=== PATIENT | female | born 1960 | race Caucasian/White ===

== ENCOUNTER 2018-04-14 11:48 | Inpatient (IN) | payer OTHER ==
[2018-04-14] MEDS ORDERED: Morphine 10 MG/ML Syringe IM ONE (12:02)
--- NOTE | 2018-04-14 12:09 | EDM.PDOC ---
ED HPI GENERAL MEDICAL PROBLEM - General Stated Complaint: LT LEG PAIN AND CONTUSION Time Seen by Provider: 04/14/18 12:05 Source of Information: Reports: Patient, Family, Old Records - History of Present Illness INITIAL COMMENTS - FREE TEXT/NARRATIVE: When he complains of left leg pain. She had a fall from chair 3 weeks ago and sustained a contusion of the left leg. An x-ray done at the walk-in clinic on the was negative for any acute fracture(see xray reports). Last 2 days the wound opened up,noted to be red ,painful and swollen. Pain is severe,worse with any weight bearing and there is some drainage, but denies any systemic symptoms. She has a history of hypothyroidism but is stable, and rheumatoid arthritis on chronic use of prednisone. 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 ED EXAM, SKIN/RASH Exam: See Below Text/Narrative:: Physical exam shows a wound noted on the anterior compartment of left leg. About 10 cm long,linealry,and there is an eschar formation noted. Wound drainage is noted,serosanguineous, with marked edema, redness and exquisite tenderness to palpation.DOrsales pedis pulses is present,strong.Patient appears uncomfortable. Exam Limited By: No Limitations General Appearance: Alert Course - Vital Signs Text/Narrative:: I consulted Dr Rosas Last Recorded V/S: Last Vital Signs Temp 97.4 F 04/14/18 12:02 Pulse 74 04/14/18 12:02 Resp 20 04/14/18 12:02 BP 142/70 H 04/14/18 12:02 Pulse Ox 100 04/14/18 12:02 - Orders/Labs/Meds Orders: Active Orders 24 hr Category Date Time Status CULTURE BLOOD [BC] Urgent Lab 04/14/18 12:20 Received CULTURE BLOOD [BC] Urgent Lab 04/14/18 12:25 Received CULTURE ROUTINE + SMEAR [RM] Stat Lab 04/14/18 12:20 Ordered Blood Culture x2 Reflex Set [OM.PC] Urgent Oth 04/14/18 12:02 Ordered Labs: Laboratory Tests 04/14/18 04/14/18 04/14/18 Range/Units 12:20 12:20 12:20 WBC 6.9 (4.5-12.0) X10-3/uL RBC 4.85 (3.23-5.20) x10(6)uL Hgb 13.8 (11.5-15.5) g/dL Hct 41.0 (30.0-51.3) % MCV 84.5 (80-96) fL MCH 28.3 (27.7-33.6) pg MCHC 33.5 (32.2-35.4) g/dL RDW 14.7 (11.5-15.5) % Plt Count 225 (125-369) X10(3)uL MPV 8.0 (7.4-10.4) fL Neut % (Auto) 73.8 (46-82) % Lymph % (Auto) 19.0 (13-37) % [place] % (Auto) 6.0 (4-12) % Eos % (Auto) 1 (1.0-5.0) % Baso % (Auto) 0 (0-2) % Neut # (Auto) 5.1 (1.6-8.3) # Lymph # (Auto) 1.3 (0.6-5.0) # [place] # (Auto) 0.4 (0.0-1.3) # Eos # (Auto) 0.1 (0.0-0.8) # Baso # (Auto) 0.0 (0.0-0.2) # ESR 11 (0-20) mm/hr Sodium 142 (135-145) mmol/L Potassium 3.3 L (3.5-5.3) mmol/L Chloride 105 (100-110) mmol/L Carbon Dioxide 30 (21-32) mmol/L BUN 12 (7-18) mg/dL Creatinine 0.8 (0.55-1.02) mg/dL Est Cr Clr Drug Dosing 63.41 mL/min Estimated GFR (MDRD) > 60 (>60) BUN/Creatinine Ratio 15.0 (9-20) Glucose 105 (80-116) mg/dL Calcium 8.8 (8.6-10.2) mg/dL Lactate Dehydrogenase (81-234) U/L Creatine Kinase (60-160) IU/L C-Reactive Protein (0.5-0.9) mg/dL 18 04/14/18 Range/Units 12:20 12:20 WBC (4.5-12.0) X10-3/uL RBC (3.23-5.20) x10(6)uL Hgb (11.5-15.5) g/dL Hct (30.0-51.3) % MCV (80-96) fL MCH (27.7-33.6) pg MCHC (32.2-35.4) g/dL RDW (11.5-15.5) % Plt Count (125-369) X10(3)uL MPV (7.4-10.4) fL Neut % (Auto) (46-82) % Lymph % (Auto) (13-37) % [place] % (Auto) (4-12) % Eos % (Auto) (1.0-5.0) % Baso % (Auto) (0-2) % Neut # (Auto) (1.6-8.3) # Lymph # (Auto) (0.6-5.0) # [place] # (Auto) (0.0-1.3) # Eos # (Auto) (0.0-0.8) # Baso # (Auto) (0.0-0.2) # ESR (0-20) mm/hr Sodium (135-145) mmol/L Potassium (3.5-5.3) mmol/L Chloride (100-110) mmol/L Carbon Dioxide (21-32) mmol/L BUN (7-18) mg/dL Creatinine (0.55-1.02) mg/dL Est Cr Clr Drug Dosing mL/min Estimated GFR (MDRD) (>60) BUN/Creatinine Ratio (9-20) Glucose (80-116) mg/dL Calcium (8.6-10.2) mg/dL Lactate Dehydrogenase 158 (81-234) U/L Creatine Kinase 38 L (60-160) IU/L C-Reactive Protein 1.7 H (0.5-0.9) mg/dL Meds: Medications Discontinued Medications Generic Name Dose Route Start Last Admin Trade Name Liliane PRN Reason Stop Dose Admin Morphine Sulfate 10 mg 04/14/18 12:02 04/14/18 12:15 Morphine IM 04/14/18 12:03 10 mg ONETIME ONE Administration Departure - Departure Time of Disposition: 13:29 Disposition: Admitted As Inpatient 66 Clinical Impression: Cellulitis - Discharge Information Referrals: Yisel Hurtado NP [Primary Care Provider] - - Problem List & Annotations (1) Cellulitis SNOMED Code(s): 882576767 Code(s): L03.90 - CELLULITIS, UNSPECIFIED Status: Acute Current Visit: Yes Qualifiers: Site of cellulitis: extremity - Problem List Review Problem List Initiated/Reviewed/Updated: Yes - My Orders Last 24 Hours: My Active Orders 04/14/18 12:02 Blood Culture x2 Reflex Set [OM.PC] Urgent 04/14/18 12:20 CULTURE BLOOD [BC] Urgent CULTURE ROUTINE + SMEAR [RM] Stat 04/14/18 12:25 CULTURE BLOOD [BC] Urgent - Assessment/Plan Last 24 Hours: My Active Orders 04/14/18 12:02 Blood Culture x2 Reflex Set [OM.PC] Urgent 04/14/18 12:20 CULTURE BLOOD [BC] Urgent CULTURE ROUTINE + SMEAR [RM] Stat 04/14/18 12:25 CULTURE BLOOD [BC] Urgent Plan: I handed over to Dr Briones,who came to see patient.The wound probably needs debridement,IV abx. R/o Osteomyelitis
--- NOTE | 2018-04-14 13:42 | PCM.HP ---
H&P History of Present Illness - General Date of Service: 04/14/18 Source of Information: Patient - History of Present Illness Initial Comments - Free Text/Narative: 58 yo wf who presents with a complaint of a necrotic wound on the left hampton. The pt apparently fell off some chairs several weeks ago, striking her hampton. She had a contusion that developed into a blister, then opened up on Saturday. Has some pain, erythema surrounding the wound. 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: Other OB/BYN History: [id number] Musculoskeletal History: Reports: Fibromyalgia, RA Neurological History: Reports: Migraines Psychiatric History: Reports: Anxiety, Depression Endocrine/Metabolic History: Reports: Hypothyroidism Hematologic History: Reports: Anemia - Infectious Disease History Infectious Disease History: Reports: Chicken Pox, Mumps - Past Surgical History HEENT Surgical History: Reports: Adenoidectomy, Oral Surgery, Tonsillectomy GI Surgical History: Reports: Appendectomy, Other (See Below) Other GI Surgeries/Procedures: exp lap Female Surgical History: Reports: Section Other Female Surgeries/Procedures: CS x 1 Neurological Surgical History: Reports: None Musculoskeletal Surgical History: Reports: Other (See Below) Other Musculoskeletal Surgeries/Procedures:: hammer toe & bunion surgery bilat feet Social & Family History - Family History Family Medical History: Noncontributory - Tobacco Use Smoking Status *Q: Never Smoker - Caffeine Use Caffeine Use: Reports: Tea - Recreational Drug Use Recreational Drug Use: No H&P Review of Systems - Review of Systems: Review Of Systems: See Below General: Reports: Night Sweats. Denies: Fever HEENT: Reports: No Symptoms Pulmonary: Reports: No Symptoms Cardiovascular: Reports: No Symptoms Gastrointestinal: Reports: No Symptoms Musculoskeletal: Reports: Joint Pain, Muscle Pain Skin: Reports: Erythema, Wound Exam - Exam Exam: See Below - Vital Signs Vital Signs: Last Vital Signs Temp 97.4 F 04/14/18 12:02 Pulse 74 04/14/18 12:02 Resp 20 04/14/18 12:02 BP 142/70 H 04/14/18 12:02 Pulse Ox 100 04/14/18 12:02 Weight: 53.524 kg - Exam General: Alert, Oriented HEENT: PERRLA, Conjunctiva Clear, EOMI, Mucosa Moist & [place] Neck: Supple, Trachea Midline Lungs: Clear to Auscultation, Normal Respiratory Effort Cardiovascular: Regular Rate, Regular Rhythm GI/Abdominal Exam: Normal Bowel Sounds Extremities: Other (left ant hampton, two wounds 5x3 cm, 1.5x1cm in a line ant hampton. there is erythema and tenderness, ) - Patient Data Lab Results Last 24 hrs: Laboratory Results - last 24 hr 04/14/18 04/14/18 04/14/18 Range/Units 12:20 12:20 12:20 WBC 6.9 (4.5-12.0) X10-3/uL RBC 4.85 (3.23-5.20) x10(6)uL Hgb 13.8 (11.5-15.5) g/dL Hct 41.0 (30.0-51.3) % MCV 84.5 (80-96) fL MCH 28.3 (27.7-33.6) pg MCHC 33.5 (32.2-35.4) g/dL RDW 14.7 (11.5-15.5) % Plt Count 225 (125-369) X10(3)uL MPV 8.0 (7.4-10.4) fL Neut % (Auto) 73.8 (46-82) % Lymph % (Auto) 19.0 (13-37) % [place] % (Auto) 6.0 (4-12) % Eos % (Auto) 1 (1.0-5.0) % Baso % (Auto) 0 (0-2) % Neut # (Auto) 5.1 (1.6-8.3) # Lymph # (Auto) 1.3 (0.6-5.0) # [place] # (Auto) 0.4 (0.0-1.3) # Eos # (Auto) 0.1 (0.0-0.8) # Baso # (Auto) 0.0 (0.0-0.2) # ESR 11 (0-20) mm/hr Sodium 142 (135-145) mmol/L Potassium 3.3 L (3.5-5.3) mmol/L Chloride 105 (100-110) mmol/L Carbon Dioxide 30 (21-32) mmol/L BUN 12 (7-18) mg/dL Creatinine 0.8 (0.55-1.02) mg/dL Est Cr Clr Drug Dosing 63.41 mL/min Estimated GFR (MDRD) > 60 (>60) BUN/Creatinine Ratio 15.0 (9-20) Glucose 105 (80-116) mg/dL Calcium 8.8 (8.6-10.2) mg/dL Lactate Dehydrogenase (81-234) U/L Creatine Kinase (60-160) IU/L C-Reactive Protein (0.5-0.9) mg/dL 04/14/18 04/14/18 Range/Units 12:20 12:20 WBC (4.5-12.0) X10-3/uL RBC (3.23-5.20) x10(6)uL Hgb (11.5-15.5) g/dL Hct (30.0-51.3) % MCV (80-96) fL MCH (27.7-33.6) pg MCHC (32.2-35.4) g/dL RDW (11.5-15.5) % Plt Count (125-369) X10(3)uL MPV (7.4-10.4) fL Neut % (Auto) (46-82) % Lymph % (Auto) (13-37) % [place] % (Auto) (4-12) % Eos % (Auto) (1.0-5.0) % Baso % (Auto) (0-2) % Neut # (Auto) (1.6-8.3) # Lymph # (Auto) (0.6-5.0) # [place] # (Auto) (0.0-1.3) # Eos # (Auto) (0.0-0.8) # Baso # (Auto) (0.0-0.2) # ESR (0-20) mm/hr Sodium (135-145) mmol/L Potassium (3.5-5.3) mmol/L Chloride (100-110) mmol/L Carbon Dioxide (21-32) mmol/L BUN (7-18) mg/dL Creatinine (0.55-1.02) mg/dL Est Cr Clr Drug Dosing mL/min Estimated GFR (MDRD) (>60) BUN/Creatinine Ratio (9-20) Glucose (80-116) mg/dL Calcium (8.6-10.2) mg/dL Lactate Dehydrogenase 158 (81-234) U/L Creatine Kinase 38 L (60-160) IU/L C-Reactive Protein 1.7 H (0.5-0.9) mg/dL Result Diagrams: 04/14/18 12:20 04/14/18 12:20 - Problem List (1) Wound of left lower extremity SNOMED Code(s): 032320987, 480865693 ICD Code: S81.802A - UNSPECIFIED OPEN WOUND, LEFT LOWER LEG, INITIAL ENCOUNTER Status: Acute Current Visit: Yes Problem List Initiated/Reviewed/Updated: Yes Orders Last 24hrs: Active Orders 24 hr Category Date Time Status CULTURE BLOOD [BC] Urgent Lab 04/14/18 12:20 Received CULTURE BLOOD [BC] Urgent Lab 04/14/18 12:25 Received CULTURE ROUTINE + SMEAR [RM] Stat Lab 04/14/18 12:20 Ordered Blood Culture x2 Reflex Set [OM.PC] Urgent Oth 04/14/18 12:02 Ordered Assessment/Plan Comment:: Pt will need to be admitted and undergo surgical debridement. Also plan IV antibiotics. Procedure and risks were explained to the pt to include bleeding, infection, need for further debridement.
[2018-04-14] MEDS: Lactated Ringers 1,000 ML IV SCH (14:37)
[2018-04-14] MEDS: Piperacillin/Tazobactam 3.375 GM in Sodium Chloride 0.9% 50 ML IV SCH ×2 (14:50→19:50)
[2018-04-14] MEDS: Morphine 2 MG/ML Syringe IVPUSH PRN ×2 (15:02→21:08)
[2018-04-14] MEDS ORDERED: Ketamine 500 mg/10 ML MDV IV ONE (16:40)
[2018-04-14] MEDS ORDERED: BUPIVACAINE HCL IJ ONE (16:40)
[2018-04-14] MEDS ORDERED: [UNRECOGNIZED DRUG - OTHER] IJ ONE (16:40)
[2018-04-14] MEDS ORDERED: Propofol 200 MG/20 ML SDV IV ONE (16:40)
[2018-04-14] MEDS ORDERED: Dexamethasone 4 MG/ML 5 ML MDV IVPUSH ONE (16:40)
[2018-04-14] MEDS ORDERED: Ondansetron 4 MG/2 ML SDV IVPUSH ONE (16:40)
[2018-04-14] MEDS ORDERED: Lidocaine 2% 100 MG/5 ML Syringe IVPUSH ONE (16:40)
[2018-04-14] MEDS ORDERED: HYDROmorphone 2 MG/ML SDV IV ONE (16:40)
[2018-04-14] MEDS ORDERED: Ondansetron 4 MG/2 ML SDV IVPUSH PRN (17:27)
--- NOTE | 2018-04-14 17:38 | PCM.OPNOTE ---
- General Post-Op/Procedure Note Date of Surgery/Procedure: 04/14/18 Operative Procedure(s): debridement left ant hampton Findings: necrotic fat. no exposed bone intact fascia wound after debridement 9x4 cm Pre Op Diagnosis: wound left ant hampton Post-Op Diagnosis: Same Anesthesia Technique: Spinal Primary Surgeon: Andrew Rosas Anesthesia Provider: Marissa Orozco Pathology: necrotic tissue EBL in mLs: 1 Complications: None Condition: Good Free Text/Narrative:: Intake & Output 04/14/18 04/14/18 04/14/18 06:59 14:59 22:59 Intake Total 0 Output Total 0 Balance 0 see dictation [id number]
[2018-04-14] MEDS: Ketorolac 30 MG/ML SDV IVPUSH SCH (17:52)
--- NOTE | 2018-04-14 18:20 | OR ---
DATE OF OPERATION: 04/14/2018 SURGEON: Andrew Rosas MD PROCEDURE PERFORMED: Surgical debridement of wound, left anterior hampton. PREOPERATIVE DIAGNOSIS: Wound, anterior hampton. POSTOPERATIVE DIAGNOSIS: Wound, anterior hampton. INDICATIONS FOR PROCEDURE: This is a 58-year-old white female who underwent a fall off a chair and struck her left hampton several weeks ago. In the subsequent time period, she has developed some necrosis of the skin. The wound finally opened over the weekend exposing necrotic fat and skin. The wound itself measured 3 x 5 at the largest component and then there was a separate wound approximately 1 cm below that and it measured 1 x 1.5 cm. She was offered and accepted surgical debridement. INTRAOPERATIVE FINDINGS: After the wound was debrided, we were left with a wound approximately 9 x 4 cm in size. DESCRIPTION OF PROCEDURE: After an excellent spinal anesthetic was administered, the patient was prepped and draped in the usual sterile manner. We started the case up by sharply dissecting away the skin and eschar that topped off the wound. This was passed off the field. Rongeur dissection using the back handle of an Adson's retractor was used to remove the fat back to a good viable tissue. The wound was then irrigated using a vacuum suction superintendent measurement. Yvonne were then placed circumferentially and using a vessel loop, we weaved the vessel loop in a shoelace fashion to get some approximation of the skin edges itself. The wound was then packed with a clean fluff and dressing was applied. Needle, sponge, and instrument counts were reported as correct. The patient was taken to Recovery in a good condition. /[id number] /NICOLASAL
[2018-04-14] MEDS: Acetaminophen/HYDROcodone 325-5 MG Tab PO PRN (20:10)
[2018-04-15] MEDS: Ketorolac 30 MG/ML SDV IVPUSH SCH ×4 (00:15→18:09)
[2018-04-15] MEDS: Piperacillin/Tazobactam 3.375 GM in Sodium Chloride 0.9% 50 ML IV SCH ×3 (02:17→15:09)
[2018-04-15] MEDS: Lactated Ringers 1,000 ML IV SCH (02:22)
--- NOTE | 2018-04-15 07:50 | PCM.SURGPN ---
- General Info Date of Service: 04/15/18 POD#: 1 Functional Status: Reports: Pain Controlled, Ambulating, Urinating. Denies: New Symptoms - Review of Systems General: Denies: No Symptoms Pulmonary: Reports: No Symptoms Cardiovascular: Reports: No Symptoms - Patient Data Vitals - Most Recent: Last Vital Signs Temp 97.6 F 04/15/18 01:00 Pulse 79 04/15/18 01:00 Resp 20 04/15/18 01:00 BP 111/53 L 04/15/18 01:00 Pulse Ox 95 04/15/18 01:00 Weight - Most Recent: 54.431 kg I&O - Last 24 Hours: Intake & Output 04/14/18 04/15/18 04/15/18 22:59 06:59 14:59 Intake Total 1071 Output Total 1200 Balance -129 Lab Results Last 24 Hrs: Laboratory Results - last 24 hr 04/14/18 04/14/18 04/14/18 Range/Units 12:20 12:20 12:20 WBC 6.9 (4.5-12.0) X10-3/uL RBC 4.85 (3.23-5.20) x10(6)uL Hgb 13.8 (11.5-15.5) g/dL Hct 41.0 (30.0-51.3) % MCV 84.5 (80-96) fL MCH 28.3 (27.7-33.6) pg MCHC 33.5 (32.2-35.4) g/dL RDW 14.7 (11.5-15.5) % Plt Count 225 (125-369) X10(3)uL MPV 8.0 (7.4-10.4) fL Neut % (Auto) 73.8 (46-82) % Lymph % (Auto) 19.0 (13-37) % [place] % (Auto) 6.0 (4-12) % Eos % (Auto) 1 (1.0-5.0) % Baso % (Auto) 0 (0-2) % Neut # (Auto) 5.1 (1.6-8.3) # Lymph # (Auto) 1.3 (0.6-5.0) # [place] # (Auto) 0.4 (0.0-1.3) # Eos # (Auto) 0.1 (0.0-0.8) # Baso # (Auto) 0.0 (0.0-0.2) # Add Manual Diff Neutrophils % (Manual) (46-82) % Band Neutrophils % (0-6) % Lymphocytes % (Manual) (13-37) % Monocytes % (Manual) (4-12) % ESR 11 (0-20) mm/hr Sodium 142 (135-145) mmol/L Potassium 3.3 L (3.5-5.3) mmol/L Chloride 105 (100-110) mmol/L Carbon Dioxide 30 (21-32) mmol/L BUN 12 (7-18) mg/dL Creatinine 0.8 (0.55-1.02) mg/dL Est Cr Clr Drug Dosing 63.41 mL/min Estimated GFR (MDRD) > 60 (>60) BUN/Creatinine Ratio 15.0 (9-20) Glucose 105 (80-116) mg/dL Calcium 8.8 (8.6-10.2) mg/dL Lactate Dehydrogenase (81-234) U/L Creatine Kinase (60-160) IU/L C-Reactive Protein (0.5-0.9) mg/dL 04/14/18 04/14/18 04/15/18 Range/Units 12:20 12:20 06:05 WBC 7.6 (4.5-12.0) X10-3/uL RBC 4.34 (3.23-5.20) x10(6)uL Hgb 12.4 (11.5-15.5) g/dL Hct 37.3 (30.0-51.3) % MCV 85.9 (80-96) fL MCH 28.5 (27.7-33.6) pg MCHC 33.2 (32.2-35.4) g/dL RDW 15.1 (11.5-15.5) % Plt Count 196 (125-369) X10(3)uL MPV 8.2 (7.4-10.4) fL Neut % (Auto) (46-82) % Lymph % (Auto) (13-37) % [place] % (Auto) (4-12) % Eos % (Auto) (1.0-5.0) % Baso % (Auto) (0-2) % Neut # (Auto) (1.6-8.3) # Lymph # (Auto) (0.6-5.0) # [place] # (Auto) (0.0-1.3) # Eos # (Auto) (0.0-0.8) # Baso # (Auto) (0.0-0.2) # Add Manual Diff Yes Neutrophils % (Manual) 79 (46-82) % Band Neutrophils % 4 (0-6) % Lymphocytes % (Manual) 13 (13-37) % Monocytes % (Manual) 4 (4-12) % ESR (0-20) mm/hr Sodium (135-145) mmol/L Potassium (3.5-5.3) mmol/L Chloride (100-110) mmol/L Carbon Dioxide (21-32) mmol/L BUN (7-18) mg/dL Creatinine (0.55-1.02) mg/dL Est Cr Clr Drug Dosing mL/min Estimated GFR (MDRD) (>60) BUN/Creatinine Ratio (9-20) Glucose (80-116) mg/dL Calcium (8.6-10.2) mg/dL Lactate Dehydrogenase 158 (81-234) U/L Creatine Kinase 38 L (60-160) IU/L C-Reactive Protein 1.7 H (0.5-0.9) mg/dL Pascual Results Last 24 Hrs: Microbiology 04/14/18 12:20 Gram Stain - Final Wound Routine Culture - Preliminary Gram Negative Rods Gram Positive Cocci Med Orders - Current: Current Medications Hydrocodone Bitart/Acetaminophen (Trimble 325-5 Mg) 1 tab PO Q4H PRN PRN Reason: Pain (mild 1-3) Last Admin: 04/14/18 20:10 Dose: 1 tab Piperacillin Sod/Tazobactam (Sod 3.375 gm/ Sodium Chloride) 50 mls @ 100 mls/ hr IV Q6H SOBEIDA Last Admin: 04/15/18 02:17 Dose: 100 mls/hr Ketorolac Tromethamine (Toradol) 30 mg IVPUSH Q6H SOBEIDA Stop: 04/19/18 18:01 Last Admin: 04/15/18 06:14 Dose: 30 mg Morphine Sulfate (Morphine) 1 mg IVPUSH Q1H PRN PRN Reason: Pain Last Admin: 09/03/18 21:08 Dose: 1 mg Non-Formulary Medication (Naltrexone Hcl Dihydrate [Naltrexone Hcl Dihydrate]) 4.5 gm MC BEDTIME SOBEIDA Non-Formulary Medication (Thyroid,Pork [Data Analysis Assistant Thyroid]) 45 mg PO DAILY SOBEIDA Ondansetron HCl (Zofran) 4 mg IVPUSH Q6H PRN PRN Reason: Nausea/Vomiting Last Admin: 04/14/18 21:08 Dose: 4 mg Prednisone (Prednisone) 5 mg PO BID SOBEIDA Discontinued Medications Lactated Ringer's (Ringers, Lactated) 1,000 mls @ 50 mls/hr IV ASDIRECTED SOBEIDA Last Admin: 04/15/18 02:22 Dose: 125 mls/hr Morphine Sulfate (Morphine) 10 mg IM ONETIME ONE Stop: 04/14/18 12:03 Last Admin: 04/14/18 12:15 Dose: 10 mg - Exam Wound/Incisions: No Drainage, Erythema Improving, Other (dressing change performed. wound is clean and dry ) Lungs: Clear to Auscultation, Normal Respiratory Effort Cardiovascular: Regular Rate, Regular Rhythm Extremities: Other (see above ) - Problem List & Annotations (1) Wound of left lower extremity SNOMED Code(s): 766447962, 133654293 Code(s): S81.802A - UNSPECIFIED OPEN WOUND, LEFT LOWER LEG, INITIAL ENCOUNTER Status: Acute Current Visit: Yes - Problem List Review Problem List Initiated/Reviewed/Updated: Yes - My Orders Last 24 Hours: Active Orders 24 hr Category Date Time Status Patient Status [ADT] Routine ADT 04/14/18 13:45 Active Gastrointestinal Tube Mgmt [RC] QSHIFT Care 04/14/18 17:27 Inactive Notify Provider Vital Signs [RC] PRN Care 04/14/18 17:27 Active RT Incentive Spirometry [RC] Q2HWA Care 04/14/18 17:27 Active Up ad Toshia [RC] ASDIRECTED Care 04/15/18 07:46 Ordered Vital Signs [RC] 00,14,08,12,16,20 Care 04/14/18 13:45 Active Regular Diet [DIET] Diet 04/14/18 Dinner Active CULTURE BLOOD [BC] Urgent Lab 04/14/18 12:20 Received CULTURE BLOOD [BC] Urgent Lab 04/14/18 12:25 Received CULTURE ROUTINE + SMEAR [RM] Routine Lab 04/14/18 17:00 Received CULTURE ROUTINE + SMEAR [RM] Stat Lab 04/14/18 12:20 Ordered Acetaminophen/HYDROcodone [Trimble 325-5 MG] Med 04/14/18 17:27 Active 1 tab PO Q4H PRN Ketorolac [Toradol] Med 04/14/18 18:00 Active 30 mg IVPUSH Q6H Morphine Med 04/14/18 13:49 Active 1 mg IVPUSH Q1H PRN Naltrexone HCl Dihydrate [Naltrexone HCl Dihydrate] Med 04/15/18 21:00 Ordered 4.5 gm MC BEDTIME Ondansetron [Zofran] Med 04/14/18 17:27 Active 4 mg IVPUSH Q6H PRN Piperacillin/Tazobactam [Zosyn] 3.375 gm Med 04/14/18 14:00 Active Sodium Chloride 0.9% [Normal Saline] 50 ml IV Q6H Thyroid,Pork [Data Analysis Assistant Thyroid] Med 04/15/18 09:00 Ordered 45 mg PO DAILY predniSONE Med 04/15/18 09:00 Ordered 5 mg PO BID Blood Culture x2 Reflex Set [OM.PC] Urgent Oth 04/14/18 12:02 Ordered Convert IV to Saline Lock [OM.PC] Routine Oth 04/15/18 07:46 Ordered Resuscitation Status Routine Resus Stat 04/14/18 13:45 Ordered Medication Orders Hydrocodone Bitart/Acetaminophen (Trimble 325-5 Mg) 1 tab PO Q4H PRN PRN Reason: Pain (mild 1-3) Last Admin: 04/14/18 20:10 Dose: 1 tab Piperacillin Sod/Tazobactam (Sod 3.375 gm/ Sodium Chloride) 50 mls @ 100 mls/ hr IV Q6H [facility] Last Admin: 04/15/18 02:17 Dose: 100 mls/hr Admin: 04/14/18 19:50 Dose: 100 mls/hr Admin: 04/14/18 14:50 Dose: 100 mls/hr Ketorolac Tromethamine (Toradol) 30 mg IVPUSH Q6H SOBEIDA Stop: 04/19/18 18:01 Last Admin: 04/15/18 06:14 Dose: 30 mg Admin: 04/15/18 00:15 Dose: 30 mg Admin: 04/14/18 17:52 Dose: 30 mg Morphine Sulfate (Morphine) 1 mg IVPUSH Q1H PRN PRN Reason: Pain Last Admin: 04/14/18 21:08 Dose: 1 mg Admin: 04/14/18 15:02 Dose: 1 mg Non-Formulary Medication (Naltrexone Hcl Dihydrate [Naltrexone Hcl Dihydrate]) 4.5 gm MC BEDTIME SOBEIDA Non-Formulary Medication (Thyroid,Pork [Data Analysis Assistant Thyroid]) 45 mg PO DAILY SOBEIDA Ondansetron HCl (Zofran) 4 mg IVPUSH Q6H PRN PRN Reason: Nausea/Vomiting Last Admin: 04/14/18 21:08 Dose: 4 mg Prednisone (Prednisone) 5 mg PO BID SOBEIDA - Assessment Assessment (Free Text/Narrative):: improvement of the wound. - Plan Plan (Free Text/Narrative):: continue antibiotics saline look if anticipate discharge later today.
[2018-04-15] MEDS: Acetaminophen/HYDROcodone 325-5 MG Tab PO PRN (08:21)
[2018-04-15] MEDS: predniSONE 5 MG Tab *PTOM PO SCH (08:51)
[2018-04-15] MEDS: NP THYROID 90 MG PO SCH (08:52)
[2018-04-15] MEDS ORDERED: NP THYROID 90 MG PO SCH (09:00)
[2018-04-15] MEDS: Sodium Chloride 0.9% 10 ML Syringe FLUSH PRN (18:09)
[2018-04-15] MEDS ORDERED: predniSONE 5 MG Tab PO SCH (20:00)
[2018-04-15] MEDS ORDERED: [UNRECOGNIZED DRUG - OTHER] MC SCH (21:00)
[2018-04-15] MEDS ORDERED: [UNRECOGNIZED DRUG - OTHER] PO SCH (22:00)
[2018-04-15] MEDS ORDERED: NALTREXONE 4.5 MG PO SCH (22:00)
[2018-04-16] MEDS: Ketorolac 30 MG/ML SDV IVPUSH SCH ×2 (00:29→06:21)
[2018-04-16] MEDS: Sodium Chloride 0.9% 10 ML Syringe FLUSH PRN ×2 (00:34→06:23)
[2018-04-16] MEDS: NP THYROID 90 MG PO SCH (08:58)
[2018-04-16] MEDS: predniSONE 5 MG Tab *PTOM PO SCH (08:59)
--- NOTE | 2018-04-16 10:14 | PCM.DCSUM1 ---
Discharge Summary - Hospital Course Free Text/Narrative:: Pt admitted underwent surgical debridment Wound has been clean and dry. granulation tissue has already stated to form. cultures Klebseilla and Staph aureus. ready for discharge on day 2 - Discharge Data Discharge Date: 04/16/18 Discharge Disposition: Home, Self-Care 01 Condition: Good - Discharge Diagnosis/Problem(s) (1) Wound of left lower extremity SNOMED Code(s): 241241233, [id number] ICD Code: S81.802A - UNSPECIFIED OPEN WOUND, LEFT LOWER LEG, INITIAL ENCOUNTER Status: Acute Current Visit: Yes Qualifiers: Encounter type: initial encounter Qualified Code(s): S81.802A - Unspecified open wound, left lower leg, initial encounter - Patient Summary/Data Operative Procedure(s) Performed: debridement left ant hampton Complications: none - Patient Instructions Diet: Usual Diet as Tolerated, No Alcoholic Beverages Activity: No Strenuous Activities, Rest and Relax Today Driving: Do Not Drive Showering/Bathing: May Shower Wound/Incision Care: Do NOT Change Dressing Notify Provider of: Fever, Swelling and Redness, Drainage - Discharge Plan *PRESCRIPTION DRUG MONITORING PROGRAM REVIEWED*: No *COPY OF PRESCRIPTION DRUG MONITORING REPORT IN PATIENT KAMINI: No Prescriptions/Med Rec: Celecoxib [CeleBREX] 100 mg PO BID PRN #10 cap PRN Reason: Pain Home Medications: Home Meds Naltrexone HCl Dihydrate 4.5 mg PO BEDTIME 04/14/18 [History] Thyroid,Pork [Lorry Weigher Thyroid] 67.5 mg PO DAILY 04/14/18 [History] predniSONE [Prednisone] 2.5 mg PO DAILY 04/15/18 [History] predniSONE [Prednisone] 5 mg PO DAILY@199904/15/18 [History] Celecoxib [CeleBREX] 100 mg PO BID PRN #10 cap 04/16/18 [Rx] Referrals: Andrew Rosas MD [Physician] - 04/17/18 - Discharge Summary/Plan Comment DC Time >30 min.: No - Patient Data Vitals - Most Recent: Last Vital Signs Temp 98.2 F 04/16/18 07:43 Pulse 62 04/16/18 07:43 Resp 18 04/16/18 07:43 BP 126/77 04/16/18 07:43 Pulse Ox 96 04/16/18 07:43 Weight - Most Recent: 54.431 kg I&O - Last 24 hours: Intake & Output 04/15/18 04/16/18 04/16/18 22:59 06:59 14:59 Intake Total 0 Balance 0 CLARENCE Results - Last 24 hrs: Microbiology 04/14/18 12:20 Gram Stain - Final Wound Routine Culture - Final Klebsiella Pneumoniae Staphylococcus Aureus 04/14/18 12:25 Aerobic Blood Culture - Preliminary Blood - Venous - Lab Draw NO GROWTH AFTER 1 DAY Anaerobic Blood Culture - Preliminary NO GROWTH AFTER 1 DAY 04/14/18 12:20 Aerobic Blood Culture - Preliminary Blood - Venous NO GROWTH AFTER 1 DAY Anaerobic Blood Culture - Preliminary NO GROWTH AFTER 1 DAY Med Orders - Current: Current Medications Hydrocodone Bitart/Acetaminophen ([place] 325-5 Mg) 1 tab PO Q4H PRN PRN Reason: Pain (mild 1-3) Last Admin: 04/15/18 08:21 Dose: 1 tab Ketorolac Tromethamine (Toradol) 30 mg IVPUSH Q6H [facility] Stop: 04/19/18 18:01 Last Admin: 04/16/18 06:21 Dose: 30 mg Morphine Sulfate (Morphine) 1 mg IVPUSH Q1H PRN PRN Reason: Pain Last Admin: 04/14/18 21:08 Dose: 1 mg Naltrexone 4.5mg Capsule *Compound* * Ptom 0 each PO DAILY@2200 [facility] Last Admin: 04/15/18 21:52 Dose: 1 each Lorry Weigher Thyroid 90mg Tab (*Ptom) 0 mg PO DAILY [facility] Last Admin: 04/16/18 08:58 Dose: 67.5 mg Ondansetron HCl (Zofran) 4 mg IVPUSH Q6H PRN PRN Reason: Nausea/Vomiting Last Admin: 04/14/18 21:08 Dose: 4 mg Prednisone (Prednisone) 2.5 mg PO DAILY [facility] Last Admin: 04/16/18 08:59 Dose: 2.5 mg Prednisone (Prednisone) 5 mg PO DAILY@1999 [facility] Last Admin: 04/15/18 20:09 Dose: 5 mg Sodium Chloride (Saline Flush) 10 ml FLUSH ASDIRECTED PRN PRN Reason: flush med Last Admin: 04/16/18 06:23 Dose: 10 ml Discontinued Medications Lactated Ringer's (Ringers, Lactated) 1,000 mls @ 50 mls/hr IV ASDIRECTED [facility] Last Admin: 04/15/18 02:22 Dose: 125 mls/hr Piperacillin Sod/Tazobactam (Sod 3.375 gm/ Sodium Chloride) 50 mls @ 100 mls/ hr IV Q6H [facility] Last Admin: 04/15/18 15:09 Dose: 100 mls/hr Morphine Sulfate (Morphine) 10 mg IM ONETIME ONE Stop: 04/14/18 12:03 Last Admin: 04/14/18 12:15 Dose: 10 mg Lorry Weigher Thyroid 90mg Tab (*Ptom) 67.5 mg PO DAILY [facility]
--- NOTE | 2018-04-16 10:14 | PCM.SURGPN ---
- General Info Date of Service: 04/16/18 POD#: 2 Functional Status: Reports: Pain Controlled, Tolerating Diet, Ambulating - Review of Systems Skin: Reports: Other - Patient Data Vitals - Most Recent: Last Vital Signs Temp 98.2 F 04/16/18 07:43 Pulse 62 04/16/18 07:43 Resp 18 04/16/18 07:43 BP 126/77 04/16/18 07:43 Pulse Ox 96 04/16/18 07:43 Weight - Most Recent: 54.431 kg I&O - Last 24 Hours: Intake & Output 04/15/18 04/16/18 04/16/18 22:59 06:59 14:59 Intake Total 0 Balance 0 [place] Results Last 24 Hrs: Microbiology 04/14/18 12:20 Gram Stain - Final Wound Routine Culture - Final Klebsiella Pneumoniae Staphylococcus Aureus 04/14/18 12:25 Aerobic Blood Culture - Preliminary Blood - Venous - Lab Draw NO GROWTH AFTER 1 DAY Anaerobic Blood Culture - Preliminary NO GROWTH AFTER 1 DAY 04/14/18 12:20 Aerobic Blood Culture - Preliminary Blood - Venous NO GROWTH AFTER 1 DAY Anaerobic Blood Culture - Preliminary NO GROWTH AFTER 1 DAY Med Orders - Current: Current Medications Hydrocodone Bitart/Acetaminophen ([place] 325-5 Mg) 1 tab PO Q4H PRN PRN Reason: Pain (mild 1-3) Last Admin: 04/15/18 08:21 Dose: 1 tab Ketorolac Tromethamine (Toradol) 30 mg IVPUSH Q6H [facility] Stop: 04/19/18 18:01 Last Admin: 04/16/18 06:21 Dose: 30 mg Morphine Sulfate (Morphine) 1 mg IVPUSH Q1H PRN PRN Reason: Pain Last Admin: 04/14/18 21:08 Dose: 1 mg Naltrexone 4.5mg Capsule *Compound* * Ptom 0 each PO DAILY@2200 [facility] Last Admin: 04/15/18 21:52 Dose: 1 each Grease Cup Filler Thyroid 90mg Tab (*Ptom) 0 mg PO DAILY [facility] Last Admin: 04/16/18 08:58 Dose: 67.5 mg Ondansetron HCl (Zofran) 4 mg IVPUSH Q6H PRN PRN Reason: Nausea/Vomiting Last Admin: 04/14/18 21:08 Dose: 4 mg Prednisone (Prednisone) 2.5 mg PO DAILY [facility] Last Admin: 04/16/18 08:59 Dose: 2.5 mg Prednisone (Prednisone) 5 mg PO DAILY@1999 [facility] Last Admin: 04/15/18 20:09 Dose: 5 mg Sodium Chloride (Saline Flush) 10 ml FLUSH ASDIRECTED PRN PRN Reason: flush med Last Admin: 04/16/18 06:23 Dose: 10 ml Discontinued Medications Lactated Ringer's (Ringers, Lactated) 1,000 mls @ 50 mls/hr IV ASDIRECTED [facility] Last Admin: 04/15/18 02:22 Dose: 125 mls/hr Piperacillin Sod/Tazobactam (Sod 3.375 gm/ Sodium Chloride) 50 mls @ 100 mls/ hr IV Q6H [facility] Last Admin: 04/15/18 15:09 Dose: 100 mls/hr Morphine Sulfate (Morphine) 10 mg IM ONETIME ONE Stop: 04/14/18 12:03 Last Admin: 04/14/18 12:15 Dose: 10 mg Grease Cup Filler Thyroid 90mg Tab (*Ptom) 67.5 mg PO DAILY [facility] - Exam Wound/Incisions: Healing Well, No Drainage. No: Erythema Lungs: Clear to Auscultation, Normal Respiratory Effort Cardiovascular: Regular Rate, Regular Rhythm - Problem List & Annotations (1) Wound of left lower extremity SNOMED Code(s): 793264775, [id number] Code(s): S81.802A - UNSPECIFIED OPEN WOUND, LEFT LOWER LEG, INITIAL ENCOUNTER Status: Acute Current Visit: Yes Qualifiers: Encounter type: initial encounter Qualified Code(s): S81.802A - Unspecified open wound, left lower leg, initial encounter - Problem List Review Problem List Initiated/Reviewed/Updated: Yes - My Orders Last 24 Hours: Active Orders 24 hr Category Date Time Status Ready for Discharge [RC] PER UNIT ROUTINE Care 04/16/18 10:10 Ordered Non-Formulary Medication [NF Drug] Med 04/15/18 22:00 Active 0 each PO DAILY@2200 Sodium Chloride 0.9% [Saline Flush] Med 04/15/18 18:05 Active 10 ml FLUSH ASDIRECTED PRN predniSONE Med 04/15/18 20:00 Active 5 mg PO DAILY@1999 Medication Orders Hydrocodone Bitart/Acetaminophen ([place] 325-5 Mg) 1 tab PO Q4H PRN PRN Reason: Pain (mild 1-3) Last Admin: 04/15/18 08:21 Dose: 1 tab Admin: 04/14/18 20:10 Dose: 1 tab Ketorolac Tromethamine (Toradol) 30 mg IVPUSH Q6H [facility] Stop: 04/19/18 18:01 Last Admin: 04/16/18 06:21 Dose: 30 mg Admin: 04/16/18 00:29 Dose: 30 mg Admin: 04/15/18 18:09 Dose: 30 mg Admin: 04/15/18 12:15 Dose: 30 mg Admin: 04/15/18 06:14 Dose: 30 mg Admin: 04/15/18 00:15 Dose: 30 mg Admin: 04/14/18 17:52 Dose: 30 mg Morphine Sulfate (Morphine) 1 mg IVPUSH Q1H PRN PRN Reason: Pain Last Admin: 04/14/18 21:08 Dose: 1 mg Admin: 04/14/18 15:02 Dose: 1 mg Naltrexone 4.5mg Capsule *Compound* * Ptom 0 each PO DAILY@2200 [facility] Last Admin: 04/15/18 21:52 Dose: 1 each Grease Cup Filler Thyroid 90mg Tab (*Ptom) 0 mg PO DAILY [facility] Last Admin: 04/16/18 08:58 Dose: 67.5 mg Admin: 04/15/18 08:52 Dose: 67.5 mg Ondansetron HCl (Zofran) 4 mg IVPUSH Q6H PRN PRN Reason: Nausea/Vomiting Last Admin: 04/14/18 21:08 Dose: 4 mg Prednisone (Prednisone) 2.5 mg PO DAILY [facility] Last Admin: 04/16/18 08:59 Dose: 2.5 mg Admin: 04/15/18 08:51 Dose: 2.5 mg Prednisone (Prednisone) 5 mg PO DAILY@2000 [facility] Last Admin: 04/15/18 20:09 Dose: 5 mg Sodium Chloride (Saline Flush) 10 ml FLUSH ASDIRECTED PRN PRN Reason: flush med Last Admin: 04/16/18 06:23 Dose: 10 ml Admin: 04/16/18 00:34 Dose: 10 ml Admin: 04/15/18 18:09 Dose: 10 ml - Assessment Assessment (Free Text/Narrative):: ready for discharge
== END 2018-04-16 10:55 | disposition home or self-care (01) | DRG 571 ==
LOC: FB.ED 11:48 → FB.MS 13:45
PROVIDERS: ADMIT Surgery; ATTEND Surgery
PROC: 0JBP0ZZ Excision of Left Lower Leg Subcutaneous Tissue and Fascia, Open Approach (ICD-10-PCS; principal; 2018-04-14)
DX: S81.802A Unspecified open wound, left lower leg, initial encounter (principal); I96 Gangrene, not elsewhere classified; B96.1 Klebsiella pneumoniae [K. pneumoniae] as the cause of diseases classified elsewhere; B95.61 Methicillin susceptible Staphylococcus aureus infection as the cause of diseases classified elsewhere; W07.XXXA Fall from chair, initial encounter; E03.9 Hypothyroidism, unspecified; M06.9 Rheumatoid arthritis, unspecified; Z79.52 Long term (current) use of systemic steroids; M79.89 Other specified soft tissue disorders
CPT/HCPCS: 01480-QZ; 36415; 80048; 82550; 83615; 84443; 85025; 85651; 86140; 87040; 87070; 87075; 87077; 87186; 87205; 94150; 96372; 99284; A9270-GY; J0131; J1100; J1170; J1885; J2001; J2270; J2405; J2543; J2704; J7050; J7120

== ENCOUNTER 2018-05-13 07:04 | Day surgery (SDC) | payer OTHER ==
[2018-05-13] MEDS ORDERED: Lactated Ringers 1,000 ML IV SCH (07:15)
[2018-05-13] MEDS ORDERED: Sodium Chloride 0.9% 10 ML Syringe FLUSH PRN (07:15)
[2018-05-13] MEDS ORDERED: Lidocaine 1% with EPINEPHrine 1:100,000 20 ML MDV INJECT ONE (08:44)
[2018-05-13] MEDS ORDERED: Bupivacaine 0.5%/EPINEPHrine 1:200,000 50 ML MDV INJECT ONE (08:44)
--- NOTE | 2018-05-13 09:27 | PCM.OPNOTE ---
- General Post-Op/Procedure Note Date of Surgery/Procedure: 05/13/18 Operative Procedure(s): full thickness skin graft lle Findings: graft full thickness donor site abd wall meshed 1.5 to 1 wound eliptical 8 x 3 cm wound donor skin excised was same size. Pre Op Diagnosis: wound lle Post-Op Diagnosis: Same Anesthesia Technique: Local (10 ml 1 % lido with epi/ 0.5% buvipicaine.), MAC Primary Surgeon: Andrew Rosas Anesthesia Provider: Bertha Barnes Pathology: none Complications: None Condition: Good Free Text/Narrative:: see dictation
[2018-05-13] MEDS ORDERED: HYDROmorphone 2 MG/ML SDV IM ONE (09:54)
[2018-05-13] MEDS ORDERED: hydrOXYzine HCl 50 MG/ML SDV IM ONE (09:55)
--- NOTE | 2018-05-13 15:29 | OR ---
DATE OF OPERATION: 05/13/2018 SURGEON: Andrew Rosas MD PROCEDURE PERFORMED: Full-thickness skin graft, left lower extremity. PREOPERATIVE DIAGNOSIS: Open wound, left lower extremity. POSTOPERATIVE DIAGNOSIS: Open wound, left lower extremity. INDICATIONS FOR PROCEDURE: This is a 58-year-old white female, who underwent a debridement after a blunt injury to her left hampton. Because of slow healing, she was offered and accepted a full-thickness skin graft. INTRAOPERATIVE FINDINGS: The patient's wound measured approximately 7 x 3 cm in its widest parameters; this was an elliptical-shaped lesion on the leg. The donor site was comparably measured and a piece of skin taken from the left lower quadrant of the patient's abdominal wall. It was meshed in 1-/2 to 1 mesh plate. DESCRIPTION OF OPERATION: After an excellent IV sedation was administered, the patient was prepped and draped in the usual sterile manner. We started the procedure by measuring out our piece of donor skin, which was in the left lower abdomen. The area was infiltrated with our local mixture. An elliptical piece of skin was excised. The skin was closed with a running 3-0 subcu Vicryl. Our attention was then turned to the wound itself. Excess granulation tissue was bluntly debrided, leaving a good bed of granulation tissue. The skin was passed through the mesher and then placed dermis side down on the wound bed. This was then sewn into position with interrupted 3-0 Prolene. A bolster was created by circumferentially tacking yanet around the wound bed itself, approximately 2 cm out. This was done by using infiltrating local in this area. A 2-0 silk was then passed underneath the suture and tied to the suture. A piece of oil emulsion gauze was placed on the graft, and a bulky dressing was then placed on top of the graft site, and the bolster silk was then tied to each other, giving a nice bulky protective dressing over the wound. After completing this, leg was dressed by placing more Kerlix fluffs over the wound, wrapping with Kerlix x2 and then Nasim wraps x2 as well. Steri-Strips and a dressing were applied to the anterior abdominal wall wound. The patient tolerated the procedure well and was taken to recovery room in good condition. /[id number] /MODL
== END 2018-05-13 12:03 | disposition home or self-care (01) ==
LOC: FB.SDS 07:04
PROVIDERS: ATTEND Surgery
DX: S81.802A Unspecified open wound, left lower leg, initial encounter (principal); E03.9 Hypothyroidism, unspecified; M06.9 Rheumatoid arthritis, unspecified; Z79.899 Other long term (current) drug therapy; X58.XXXA Exposure to other specified factors, initial encounter
CPT/HCPCS: 00400-QZ; J1170; J3410; J3490; J7120

== ENCOUNTER 2018-09-05 21:20 | Emergency (ER) | payer SELFPAY ==
[2018-09-05] MEDS ORDERED: Acetaminophen/oxyCODONE 325-5 MG Tab PO ONE (21:21)
[2018-09-05] MEDS ORDERED: Morphine 2 MG/ML Syringe IVPUSH ONE (21:23)
[2018-09-05] MEDS ORDERED: Ketorolac 30 MG/ML SDV IVPUSH ONE (21:23)
[2018-09-05] MEDS ORDERED: Ondansetron 4 MG/2 ML SDV IVPUSH ONE (21:25)
[2018-09-05] MEDS ORDERED: Morphine 4 MG/ML Syringe IVPUSH ONE (21:26)
--- NOTE | 2018-09-05 21:27 | EDM.PDOC ---
ED HPI GENERAL MEDICAL PROBLEM - General Stated Complaint: LT SHOUDLER PAIN Time Seen by Provider: 09/05/18 21:20 Source of Information: Reports: Patient, Family History Limitations: Reports: Physical Impairment (left arm pain) - History of Present Illness INITIAL COMMENTS - FREE TEXT/NARRATIVE: 58 y.o.w.f with of RA, on 10 mg Prednisone daily, came to the ed with her by PC after she slipped on ice and fell onto her left shoulder. Pt had extreme pain at he left shoulder, even at rest refusing to examining her, every movement/touch of her left arm hurts and so does tacking a deep breath. No N/V/ D or dizziness. BP 159/105 RR 17 Pulse ox 100% on RA Temp 36.8 Pulse 98 Onset Date: 09/05/18 Onset Time: 20:00 Duration: Hour(s):, Getting Worse, Intermittent Location: Reports: Upper Extremity, Left Quality: Reports: Ache, Burning, Pressure, Stabbing, Throbbing Severity: Moderate Improves with: Reports: Rest Worsens with: Reports: Movement Context: Reports: Trauma left shoulder Pain Score (Numeric/FACES): 10 - Related Data Allergies Allergy/AdvReac Type Severity Reaction Status Date / Time No Known Allergies Allergy Verified 09/05/18 22:20 Home Meds: Home Meds Naltrexone HCl Dihydrate 4.5 mg PO BEDTIME 04/14/18 [History] Thyroid,Pork [Community Development Worker Thyroid] 67.5 mg PO DAILY 04/14/18 [History] predniSONE [Prednisone] 2.5 mg PO DAILY 04/15/18 [History] predniSONE [Prednisone] 5 mg PO DAILY@199904/15/18 [History] Cholecalciferol (Vitamin D3) [Vitamin D3] 5,000 unit PO DAILY 05/12/18 [History] Iron Polysac/Iron Heme/FA/B12 [Bifera Rx] 1 each PO DAILY 05/12/18 [History] Acetaminophen/oxyCODONE [Percocet 325-7.5 MG] 1 tab PO Q4H PRN #12 tab 09/05/18 [Rx] Past Medical History HEENT History: Reports: Impaired Vision Other HEENT History: THYROID DISEASE Cardiovascular History: Reports: None Respiratory History: Reports: None Gastrointestinal History: Reports: Other (See Below) Other Gastrointestinal History: hx intrasucception Genitourinary History: Reports: None MANAGER LAUNDRY History: Reports: Other MANAGER LAUNDRY History: 17/ PARA 13 AB 4 Musculoskeletal History: Reports: Fibromyalgia, RA Neurological History: Reports: Migraines Psychiatric History: Reports: Anxiety, Depression Endocrine/Metabolic History: Reports: Hypothyroidism Hematologic History: Reports: Anemia Oncologic (Cancer) History: Reports: None Dermatologic History: Reports: None - Infectious Disease History Infectious Disease History: Reports: Chicken Pox, Mumps - Past Surgical History Head Surgeries/Procedures: Reports: None HEENT Surgical History: Reports: Adenoidectomy, Oral Surgery, Tonsillectomy GI Surgical History: Reports: Appendectomy, Other (See Below) Other GI Surgeries/Procedures: exp lap Female Surgical History: Reports: Section Other Female Surgeries/Procedures: CS x 1 Neurological Surgical History: Reports: None Musculoskeletal Surgical History: Reports: Other (See Below) Other Musculoskeletal Surgeries/Procedures:: hammer toe & bunion surgery bilat feet Social & Family History - Family History Family Medical History: Noncontributory - Caffeine Use Caffeine Use: Reports: Tea Review of Systems - Review of Systems Review Of Systems: See Below Constitutional: Reports: No Symptoms Eyes: Reports: No Symptoms Ears: Reports: No Symptoms Nose: Reports: No Symptoms, Previous Injury Mouth/Throat: Reports: No Symptoms Respiratory: Reports: No Symptoms Cardiovascular: Reports: No Symptoms GI/Abdominal: Reports: No Symptoms Genitourinary: Reports: No Symptoms Musculoskeletal: Reports: No Symptoms, Joint Pain (left shoiulder) Skin: Reports: No Symptoms Neurological: Reports: No Symptoms Psychiatric: Reports: No Symptoms ED EXAM, GENERAL - Physical Exam Exam: See Below Exam Limited By: No Limitations General Appearance: Alert, WD/WN, Moderate Distress Eye Exam: Bilateral Eye: Normal Inspection Ears: Normal External Exam Ear Exam: Bilateral Ear: Auricle Normal Nose: Normal Inspection, Normal Mucosa, No Blood Throat/Mouth: Normal Inspection, Normal Lips, Normal Voice, No Airway Compromise Head: Atraumatic, Normocephalic Neck: Normal Inspection, Supple, Non-Tender, Full Range of Motion Respiratory/Chest: No Respiratory Distress, Lungs Clear, Normal Breath Sounds, No Accessory Muscle Use, Chest Non-Tender Cardiovascular: Normal Peripheral Pulses, Regular Rate, Rhythm, No Edema, No Gallop, No JVD, No Murmur, No Rub Peripheral Pulses: 2+: Radial (L) GI/Abdominal: Normal Bowel Sounds, Soft, Non-Tender, No Organomegaly, No Distention, No Abnormal Bruit, No Mass, Pelvis Stable (Female) Exam: Deferred Rectal (Female) Exam: Deferred Back Exam: Normal Inspection, Full Range of Motion Extremities: Normal Capillary Refill, Limited Range of Motion (left shoulder due to pain) Neurological: Alert, Oriented, CN II-XII Intact, Normal Cognition Psychiatric: Normal Affect, Normal Mood Skin Exam: Warm, Dry, Intact, Normal Color, No Rash Lymphatic: No Adenopathy Course - Vital Signs Text/Narrative:: 58 y.o.w.f with of RA, on 10 mg Prednisone daily, came to the ed with her by PC after she slipped on ice and fell onto her left shoulder. Pt had extreme pain at he left shoulder, even at rest refusing to examining her, every movement/touch of her left arm hurts and so does tacking a deep breath. No N/V/ D or dizziness. BP 159/105 RR 17 Pulse ox 100% on RA Temp 36.8 Pulse 98 PE: Thin 58 y.o.w.f in extreme left shoulder pain after a fall. Imaging: Left shoulder X Ray/CT: Subcapital comminuted humeral head fx with minimal displacement. No dislocation Labs: Not indicated Impression: left sided Subcapital comminuted humeral head fx with minimal displacement. No dislocation, H/O RA Tx: Toradol, Morphine, Dilaudid, ICE, shoulder immobilizer. Percocet-8 tabls- as a take home 10.03 pm Consultation: , Ortho: CT left shoulder, if the shoulder is dislocated as well, send pt to [facility], if not, apply a shoulder immobilizer and He, will see Pt this Saturday 10.30 am in the clinic Reexam: Improved, no pain on D/C with shoulder remobilizer in place. Plan: D/C with instructions Last Recorded V/S: Last Vital Signs Temp 36.6 C 09/05/18 23:45 Pulse 74 09/05/18 23:45 Resp 18 09/05/18 23:45 BP 136/98 H 09/05/18 23:45 Pulse Ox 100 09/05/18 23:45 - Orders/Labs/Meds Orders: Active Orders 24 hr Category Date Time Status Humerus Lt [CR] Stat Exams 09/05/18 21:28 Ordered Shoulder Comp Lt [CR] Stat Exams 09/05/18 21:28 Taken Upper Extremity wo Cont Lt [CT] Stat Exams 09/05/18 22:15 Taken Meds: Medications Discontinued Medications Generic Name Dose Route Start Last Admin Trade Name Freq PRN Reason Stop Dose Admin Hydromorphone HCl 1 mg 09/05/18 21:41 09/05/18 21:46 Dilaudid IVPUSH 09/05/18 21:42 1 mg ONETIME ONE Administration Ketorolac Tromethamine 30 mg 09/05/18 21:23 09/05/18 21:42 Toradol IVPUSH 09/05/18 21:24 30 mg ONETIME ONE Administration Morphine Sulfate 2 mg 09/05/18 21:23 09/05/18 21:49 Morphine IVPUSH 09/05/18 21:24 Not Given ONETIME ONE Morphine Sulfate 4 mg 09/05/18 21:26 09/05/18 21:49 Morphine IVPUSH 09/05/18 21:27 Not Given ONETIME ONE Morphine Sulfate 4 mg 09/05/18 21:29 09/05/18 21:42 Morphine IVPUSH 09/05/18 21:30 4 mg ONETIME STA Administration Morphine Sulfate Confirm 09/05/18 21:37 09/05/18 21:43 Morphine Administered 09/05/18 21:38 Not Given Dose 10 mg .ROUTE .STK-MED ONE Ondansetron HCl 8 mg 09/05/18 21:25 09/05/18 21:42 Zofran IVPUSH 09/05/18 21:26 8 mg ONETIME ONE Administration Departure - Departure Time of Disposition: 23:36 Disposition: Home, Self-Care 01 Condition: Good Clinical Impression: Shoulder fracture, left Qualifiers: Encounter type: initial encounter Fracture type: closed Qualified Code(s): S42.92XA - Fracture of left shoulder girdle, part unspecified, initial encounter for closed fracture - Discharge Information Prescriptions: Acetaminophen/oxyCODONE [Percocet 325-7.5 MG] 1 tab PO Q4H PRN #12 tab PRN Reason: fro severe pain Instructions: Acetaminophen; Oxycodone tablets, Humerus Fracture Treated With Immobilization, How to Use a Shoulder Immobilizer Referrals: Yisel Hurtado NP [Primary Care Provider] - Felix Smith DO [Physician] - Forms: ED Department Discharge Additional Instructions: Ice, rest, pain meds Motrin/Percocet. Please f/u with This Saturday at 10.30 am at his clinic at [place]. Please come back to the ed if your symptoms should worsen acutely. - My Orders Last 24 Hours: My Active Orders 09/05/18 21:28 Humerus Lt [CR] Stat Shoulder Comp Lt [CR] Stat 09/05/18 22:15 Upper Extremity wo Cont Lt [CT] Stat - Assessment/Plan Last 24 Hours: My Active Orders 09/05/18 21:28 Humerus Lt [CR] Stat Shoulder Comp Lt [CR] Stat 09/05/18 22:15 Upper Extremity wo Cont Lt [CT] Stat
[2018-09-05] MEDS ORDERED: Morphine 10 MG/ML Syringe IVPUSH STA (21:29)
[2018-09-05] MEDS ORDERED: Morphine 10 MG/ML SDV ONE (21:37)
[2018-09-05] MEDS ORDERED: HYDROmorphone 2 MG/ML SDV IVPUSH ONE (21:41)
== END 2018-09-05 23:45 | disposition home or self-care (01) ==
LOC: FB.ED 21:20
DX: S42.92XA Fracture of left shoulder girdle, part unspecified, initial encounter for closed fracture (principal); F41.9 Anxiety disorder, unspecified; F32.9 Major depressive disorder, single episode, unspecified; E03.9 Hypothyroidism, unspecified; W00.0XXA Fall on same level due to ice and snow, initial encounter; Z79.899 Other long term (current) drug therapy
CPT/HCPCS: 73030-LT; 73200-LT; 96374; 96375; 99284; A9270-GY; J1170; J1885; J2270; J2405

== ENCOUNTER 2020-07-24 10:14 | Inpatient (IN) | payer OTHER, SELFPAY ==
[2020-07-24] MEDS ORDERED: Ondansetron 4 MG/2 ML SDV IVPUSH ONE (10:43)
[2020-07-24] MEDS ORDERED: HYDROmorphone 2 MG/ML SDV IVPUSH ONE ×2 (10:43→12:21)
[2020-07-24] MEDS ORDERED: Sodium Chloride 0.9% 1,000 ML IV ONE ×2 (10:44→10:50)
--- NOTE | 2020-07-24 10:48 | EDM.PDOC ---
ED HPI GENERAL MEDICAL PROBLEM - General Chief Complaint: Abdominal Pain Stated Complaint: ABD PAIN Time Seen by Provider: 07/24/20 10:43 Source of Information: Reports: Patient History Limitations: Reports: No Limitations - History of Present Illness INITIAL COMMENTS - FREE TEXT/NARRATIVE: pt c/o sever colicky abd sharp 10/10 pain worsening gradually since yesterday after noon, with nausea and recurrent biled collared emesis , no fever or chills , last BM was early this morning, no blood or black stool, pt denies any other associated sx with this. she has Hx of RA and she is chronically on prednisone , also has Hx of appendectomy and a . abdomen Pain Score (Numeric/FACES): 10 - Related Data Allergies Allergy/AdvReac Type Severity Reaction Status Date / Time No Known Allergies Allergy Verified 09/05/18 22:20 Home Meds: Home Meds Naltrexone HCl Dihydrate 4.5 mg PO BEDTIME 04/14/18 [History] Thyroid,Pork [[employer] Thyroid] 67.5 mg PO DAILY 04/14/18 [History] predniSONE [Prednisone] 2.5 mg PO DAILY 04/15/18 [History] predniSONE [Prednisone] 5 mg PO DAILY@199904/15/18 [History] Cholecalciferol (Vitamin D3) [Vitamin D3] 5,000 unit PO DAILY 05/12/18 [History] Iron Polysac/Iron Heme/FA/B12 [Bifera Rx] 1 each PO DAILY 05/12/18 [History] Acetaminophen/oxyCODONE [Percocet 325-7.5 MG] 1 tab PO Q4H PRN #12 tab 09/05/18 [Rx] Past Medical History HEENT History: Reports: Impaired Vision Other HEENT History: THYROID DISEASE Cardiovascular History: Reports: None Respiratory History: Reports: None Gastrointestinal History: Reports: Other (See Below) Other Gastrointestinal History: hx intrasucception Genitourinary History: Reports: None 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 Musculoskeletal History: Reports: Fibromyalgia, RA Neurological History: Reports: Migraines Psychiatric History: Reports: Anxiety, Depression Endocrine/Metabolic History: Reports: Hypothyroidism Hematologic History: Reports: Anemia Oncologic (Cancer) History: Reports: None Dermatologic History: Reports: None - Infectious Disease History Infectious Disease History: Reports: Chicken Pox, Mumps - Past Surgical History Head Surgeries/Procedures: Reports: None HEENT Surgical History: Reports: Adenoidectomy, Oral Surgery, Tonsillectomy GI Surgical History: Reports: Appendectomy, Other (See Below) Other GI Surgeries/Procedures: exp lap Female Surgical History: Reports: Section Other Female Surgeries/Procedures: CS x 1 Neurological Surgical History: Reports: None Musculoskeletal Surgical History: Reports: Other (See Below) Other Musculoskeletal Surgeries/Procedures:: hammer toe & bunion surgery bilat feet Social & Family History - Family History Family Medical History: No Pertinent Family History - Caffeine Use Caffeine Use: Reports: Tea ED ROS GENERAL - Review of Systems Review Of Systems: See Below Constitutional: Reports: No Symptoms HEENT: Reports: No Symptoms Respiratory: Reports: No Symptoms Cardiovascular: Reports: No Symptoms GI/Abdominal: Reports: Abdominal Pain, Nausea, Vomiting. Denies: Black Stool, Bloody Stool, Distension : Reports: No Symptoms Musculoskeletal: Reports: No Symptoms Skin: Reports: No Symptoms Neurological: Reports: No Symptoms ED EXAM, GENERAL - Physical Exam Exam: See Below Exam Limited By: No Limitations General Appearance: Alert, Moderate Distress, Severe Distress Nose: Normal Inspection Throat/Mouth: Normal Oropharynx Head: Atraumatic, Normocephalic Neck: Normal Inspection, Supple, Non-Tender Respiratory/Chest: No Respiratory Distress, Lungs Clear, Normal Breath Sounds Cardiovascular: Normal Peripheral Pulses, Regular Rate, Rhythm, No Murmur GI/Abdominal: Normal Bowel Sounds, Soft, Tender, Other (tender all across ). No: No Distention Back Exam: Normal Inspection, Full Range of Motion Extremities: Normal Inspection, Normal Range of Motion Neurological: Alert, Oriented, CN II-XII Intact, No Motor/Sensory Deficits Skin Exam: Warm Course - Vital Signs Text/Narrative:: labs and CT results were explained to pt, pt has small bowel obstruction . she is resting now comfortably after fluids , dilaudid , zofran , reglan and NG tube placement. Dr Brown was consulted also Dr Mace and she was in acceptance of pt care. Last Recorded V/S: Last Vital Signs Temp 36.1 C 07/24/20 10:15 Pulse 63 07/24/20 12:32 Resp 21 H 07/24/20 10:15 BP 124/53 L 07/24/20 12:32 Pulse Ox 99 07/24/20 10:15 - Orders/Labs/Meds Orders: Active Orders 24 hr Category Date Time Status Abdomen Pelvis wo Cont [CT] Stat Exams 07/24/20 11:39 Ordered UA W/MICROSCOPIC [URIN] Stat Lab 07/24/20 10:50 Ordered Sodium Chloride 0.9% [Normal Saline] 1,000 ml Med 07/24/20 10:50 Active IV .BOLUS Sodium Chloride 0.9% [Normal Saline] 1,000 ml Med 07/24/20 12:30 Active IV ASDIRECTED Medication Orders Sodium Chloride (Normal Saline) 1,000 mls @ 999 drops/hr IV .BOLUS ONE Stop: 07/25/20 01:50 Last Admin: 07/24/20 12:22 Dose: Not Given Documented by: RAFAEL Sodium Chloride (Normal Saline) 1,000 mls @ 999 mls/hr IV ASDIRECTED SOBEIDA Last Admin: 07/24/20 11:47 Dose: 999 mls/hr Documented by: RAFAEL Labs: Laboratory Tests 07/24/20 07/24/20 07/24/20 Range/Units 10:30 10:30 10:30 WBC 22.6 H (3.0-10.3) x10-3/uL RBC 7.18 H (3.60-5.20) x10(6)uL Hgb 16.7 H (11.4-15.5) g/dL Hct 52.0 H (34.2-48.2) % MCV 72.5 L (76.7-100.5) fL MCH 23.3 L (23.9-33.9) pg MCHC 32.1 (31.9-34.8) g/dL RDW 18.7 H (12.3-16.5) % Plt Count 507 H (151-488) x10(3)uL MPV 8.1 (7.1-12.4) fL Add Manual Diff Yes Neutrophils % (Manual) 73 (46-82) % Band Neutrophils % 3 (0-6) % Lymphocytes % (Manual) 20 (13-37) % Monocytes % (Manual) 4 (4-12) % Sodium 141 (135-145) mmol/L Potassium 2.9 L (3.5-5.3) mmol/L Chloride 95 L D (100-110) mmol/L Carbon Dioxide 27 (21-32) mmol/L BUN 17 (7-18) mg/dL Creatinine 1.6 H (0.55-1.02) mg/dL Est Cr Clr Drug Dosing 28.21 mL/min Estimated GFR (MDRD) 33 L (>60) BUN/Creatinine Ratio 10.6 (9-20) Glucose 181 H (80-116) mg/dL Calcium 9.8 (8.6-10.2) mg/dL Total Bilirubin 1.1 (0.1-1.3) mg/dL AST 22 (5-25) IU/L ALT 23 (12-36) U/L Alkaline Phosphatase 118 H (56-112) IU/L Total Protein 8.7 H (6.0-8.0) g/dL Albumin 4.1 (3.2-4.6) g/dL Globulin 4.6 g/dL Albumin/Globulin Ratio 0.9 Amylase 53 (25-115) U/L Lipase 200 (73-393) U/L SARS-CoV-2 RNA (COLLETTE) (NEGATIVE) 07/24/20 Range/Units 11:03 WBC (3.0-10.3) x10-3/uL RBC (3.60-5.20) x10(6)uL Hgb (11.4-15.5) g/dL Hct (34.2-48.2) % MCV (76.7-100.5) fL MCH (23.9-33.9) pg MCHC (31.9-34.8) g/dL RDW (12.3-16.5) % Plt Count (151-488) x10(3)uL MPV (7.1-12.4) fL Add Manual Diff Neutrophils % (Manual) (46-82) % Band Neutrophils % (0-6) % Lymphocytes % (Manual) (13-37) % Monocytes % (Manual) (4-12) % Sodium (135-145) mmol/L Potassium (3.5-5.3) mmol/L Chloride (100-110) mmol/L Carbon Dioxide (21-32) mmol/L BUN (7-18) mg/dL Creatinine (0.55-1.02) mg/dL Est Cr Clr Drug Dosing mL/min Estimated GFR (MDRD) (>60) BUN/Creatinine Ratio (9-20) Glucose (80-116) mg/dL Calcium (8.6-10.2) mg/dL Total Bilirubin (0.1-1.3) mg/dL AST (5-25) IU/L ALT (12-36) U/L Alkaline Phosphatase (56-112) IU/L Total Protein (6.0-8.0) g/dL Albumin (3.2-4.6) g/dL Globulin g/dL Albumin/Globulin Ratio Amylase (25-115) U/L Lipase (73-393) U/L SARS-CoV-2 RNA (COLLETTE) Negative (NEGATIVE) Meds: Medications Generic Name Dose Route Start Last Admin Trade Name Freq PRN Reason Stop Dose Admin Sodium Chloride 1,000 mls @ 999 drops/hr 07/24/20 10:50 07/24/20 12:22 Normal Saline IV 07/25/20 01:50 Not Given .BOLUS ONE Sodium Chloride 1,000 mls @ 999 mls/hr 07/24/20 12:30 07/24/20 11:47 Normal Saline IV 999 mls/hr ASDIRECTED SOBEIDA Administration Discontinued Medications Generic Name Dose Route Start Last Admin Trade Name Freq PRN Reason Stop Dose Admin Hydromorphone HCl 1 mg 07/24/20 10:43 07/24/20 10:55 Dilaudid IVPUSH 07/24/20 10:44 1 mg ONETIME ONE Administration Hydromorphone HCl 1 mg 07/24/20 12:21 Dilaudid IVPUSH 07/24/20 12:22 ONETIME ONE Sodium Chloride 1,000 mls @ 999 mls/hr 07/24/20 10:44 07/24/20 10:30 Normal Saline IV 07/24/20 11:44 999 mls/hr .BOLUS ONE Administration Metoclopramide HCl 10 mg 07/24/20 11:48 07/24/20 11:54 Reglan IVPUSH 07/24/20 11:49 10 mg ONETIME ONE Administration Ondansetron HCl 4 mg 07/24/20 10:43 07/24/20 10:50 Zofran IVPUSH 07/24/20 10:44 4 mg ONETIME ONE Administration Departure - Departure Time of Disposition: 14:47 Disposition: Admitted As Inpatient 66 Clinical Impression: Bowel obstruction - Discharge Information Referrals: Yisel Hurtado NP [Primary Care Provider] - Forms: ED Department Discharge Sepsis Event Note (ED) - Focused Exam Vital Signs: Vital Signs Temp Pulse Resp BP Pulse Ox 07/24/20 12:32 63 124/53 L 07/24/20 10:15 36.1 C 98 21 H 126/78 99 - My Orders Last 24 Hours: My Active Orders 07/24/20 10:50 UA W/MICROSCOPIC [URIN] Stat Sodium Chloride 0.9% [Normal Saline] 1,000 ml IV .BOLUS 07/24/20 11:39 Abdomen Pelvis wo Cont [CT] Stat 07/24/20 12:30 Sodium Chloride 0.9% [Normal Saline] 1,000 ml IV ASDIRECTED - Assessment/Plan Last 24 Hours: My Active Orders 07/24/20 10:50 UA W/MICROSCOPIC [URIN] Stat Sodium Chloride 0.9% [Normal Saline] 1,000 ml IV .BOLUS 07/24/20 11:39 Abdomen Pelvis wo Cont [CT] Stat 07/24/20 12:30 Sodium Chloride 0.9% [Normal Saline] 1,000 ml IV ASDIRECTED
[2020-07-24] MEDS ORDERED: Metoclopramide 10 MG/2 ML SDV IVPUSH ONE (11:48)
[2020-07-24] MEDS ORDERED: Sodium Chloride 0.9% 1,000 ML IV SCH (12:30)
[2020-07-24] MEDS: Piperacillin/Tazobactam 3.375 GM in Sodium Chloride 0.9% 50 ML IV SCH ×2 (15:53→22:17)
[2020-07-24] MEDS ORDERED: Enoxaparin 30 MG/0.3 ML Syringe SUBCUT SCH (16:15)
[2020-07-24] MEDS ORDERED: Acetaminophen 650 MG Supp RECTAL PRN (16:18)
[2020-07-24] MEDS ORDERED: HYDROmorphone 2 MG/ML SDV IVPUSH PRN (16:26)
[2020-07-24] MEDS: Potassium Chloride 10 MEQ in Premix Bag 1 BAG IV ONE ×2 (16:29→16:50)
[2020-07-24] MEDS ORDERED: Lactated Ringers 1,000 ML IV SCH (16:30)
[2020-07-24] MEDS ORDERED: Ketorolac 30 MG/ML SDV IVPUSH PRN (16:36)
[2020-07-24] MEDS: Lactated Ringers 1,000 ML IV SCH ×2 (16:50→21:13)
--- NOTE | 2020-07-24 17:21 | PCM.HP.2 ---
H&P History of Present Illness - General Date of Service: 07/24/20 Admit Problem/Dx: Admission Diagnosis/Problem Admission Diagnosis/Problem Bowel obstruction due to retraction of stoma Source of Information: Patient, EMS Notes Reviewed, Family - History of Present Illness Initial Comments - Free Text/Narative: Andie presented to ER today with 1 day history of colicky sharp abdominal pain, rated 10/10 in ER. She had nausea and recurrent vomiting, started bile colored, then brown, foul smelling. Her did not think it was stool, didn't smell like it and also didn't smell like pus. Denies any fevers, chills, respiratory symptoms, no coughing. She has history of Rheumatoid arthritis on Prednisone and Plaquenil, takes Naltrexone low dose for her Thyroid per her . In ER, WBC was 22.6, Hgb 6.7, platelets 507, Lactic acid 7.6, Amylase 53, Lipase 200, Potassium 2.9, Creatinine 1.6, CT abdomen/pelvis showed small bowel obstruction. Dr Brown had been consulted from the ER. Covid negative. [facility], ER had checked with [facility] about admission, they declined admission so was admitted to floor. Was given Dilaudid 1 mg x 1 in ER, Reglan 10 mg x 1 in ER, Zosyn was started in ER and continued on the floor, blood culture ordered. She had some diarrhea since arrival, had NG placed in ER, 400 ml initially out, and not had anything currently, on low intermittent suction. Most of history obtained from as patient quite sleepy from her Dilaudid doses. abdomen Pain Score (Numeric/FACES): 10 - Related Data Allergies/Adverse Reactions: Allergies Allergy/AdvReac Type Severity Reaction Status Date / Time No Known Allergies Allergy Verified 09/05/18 22:20 Home Medications: Home Meds predniSONE [Prednisone] 5 mg PO DAILY 04/15/18 [History] Hydroxychloroquine [Plaquenil] 200 mg PO BID 07/24/20 [History] Naltrexone 4.5 mg PO DAILY 07/24/20 [History] Past Medical History HEENT History: Reports: Impaired Vision Other HEENT History: THYROID DISEASE Cardiovascular History: Reports: None Respiratory History: Reports: None Gastrointestinal History: Reports: Other (See Below) Other Gastrointestinal History: hx intrasucception Genitourinary History: Reports: None 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 4 Musculoskeletal History: Reports: Fibromyalgia, RA Neurological History: Reports: Migraines Psychiatric History: Reports: Anxiety, Depression Endocrine/Metabolic History: Reports: Hypothyroidism Hematologic History: Reports: Anemia Oncologic (Cancer) History: Reports: None Dermatologic History: Reports: None - Infectious Disease History Infectious Disease History: Reports: Chicken Pox, Mumps - Past Surgical History Head Surgeries/Procedures: Reports: None HEENT Surgical History: Reports: Adenoidectomy, Oral Surgery, Tonsillectomy GI Surgical History: Reports: Appendectomy, Other (See Below) Other GI Surgeries/Procedures: exp lap Female Surgical History: Reports: Section Other Female Surgeries/Procedures: CS x 1 Neurological Surgical History: Reports: None Musculoskeletal Surgical History: Reports: Other (See Below) Other Musculoskeletal Surgeries/Procedures:: hammer toe & bunion surgery bilat feet Social & Family History - Family History Family Medical History: No Pertinent Family History - Tobacco Use Tobacco Use Status *Q: Never Tobacco User - Caffeine Use Caffeine Use: Reports: Soda - Recreational Drug Use Recreational Drug Use: No H&P Review of Systems - Review of Systems: Review Of Systems: Comprehensive ROS is negative, except as noted in HPI. Exam - Exam Exam: See Below - Vital Signs Vital Signs: Last Vital Signs Temp 97.0 F 07/24/20 10:15 Pulse 63 07/24/20 12:32 Resp 21 H 07/24/20 10:15 BP 124/53 L 07/24/20 12:32 Pulse Ox 99 07/24/20 10:15 Weight: 125 lb - Exam General: Sedated. No: Mild Distress HEENT: No: Mucosa Moist & [place] Lungs: Clear to Auscultation, Normal Respiratory Effort, Decreased Breath Sounds (bibasilar) Cardiovascular: Tachycardia GI/Abdominal Exam: Soft, Distended, Guarding, Tender, Abnormal Bowel Sounds (hypoactive). No: Rigid (Female) Exam: Deferred Rectal (Female) Exam: Deferred Extremities: No Pedal Edema, Slow Capillary Refill Peripheral Pulses: 2+: Radial (L), Radial (R) Skin: Cool - Patient Data Lab Results Last 24 hrs: Laboratory Results - last 24 hr 12/13/20 12/13/20 12/13/20 Range/Units 10:30 10:30 10:30 WBC 22.6 H (3.0-10.3) x10-3/uL RBC 7.18 H (3.60-5.20) x10(6)uL Hgb 16.7 H (11.4-15.5) g/dL Hct 52.0 H (34.2-48.2) % MCV 72.5 L (76.7-100.5) fL MCH 23.3 L (23.9-33.9) pg MCHC 32.1 (31.9-34.8) g/dL RDW 18.7 H (12.3-16.5) % Plt Count 507 H (151-488) x10(3)uL MPV 8.1 (7.1-12.4) fL Add Manual Diff Yes Neutrophils % (Manual) 73 (46-82) % Band Neutrophils % 3 (0-6) % Lymphocytes % (Manual) 20 (13-37) % Monocytes % (Manual) 4 (4-12) % Sodium 141 (135-145) mmol/L Potassium 2.9 L (3.5-5.3) mmol/L Chloride 95 L D (100-110) mmol/L Carbon Dioxide 27 (21-32) mmol/L BUN 17 (7-18) mg/dL Creatinine 1.6 H (0.55-1.02) mg/dL Est Cr Clr Drug Dosing 28.21 mL/min Estimated GFR (MDRD) 33 L (>60) BUN/Creatinine Ratio 10.6 (9-20) Glucose 181 H (80-116) mg/dL Lactic Acid (0.4-2.0) mmol/L Calcium 9.8 (8.6-10.2) mg/dL Total Bilirubin 1.1 (0.1-1.3) mg/dL AST 22 (5-25) IU/L ALT 23 (12-36) U/L Alkaline Phosphatase 118 H (56-112) IU/L Total Protein 8.7 H (6.0-8.0) g/dL Albumin 4.1 (3.2-4.6) g/dL Globulin 4.6 g/dL Albumin/Globulin Ratio 0.9 Amylase 53 (25-115) U/L Lipase 200 (73-393) U/L SARS-CoV-2 RNA (COLLETTE) (NEGATIVE) 07/24/20 07/24/20 Range/Units 10:30 11:03 WBC (3.0-10.3) x10-3/uL RBC (3.60-5.20) x10(6)uL Hgb (11.4-15.5) g/dL Hct (34.2-48.2) % MCV (76.7-100.5) fL MCH (23.9-33.9) pg MCHC (31.9-34.8) g/dL RDW (12.3-16.5) % Plt Count (151-488) x10(3)uL MPV (7.1-12.4) fL Add Manual Diff Neutrophils % (Manual) (46-82) % Band Neutrophils % (0-6) % Lymphocytes % (Manual) (13-37) % Monocytes % (Manual) (4-12) % Sodium (135-145) mmol/L Potassium (3.5-5.3) mmol/L Chloride (100-110) mmol/L Carbon Dioxide (21-32) mmol/L BUN (7-18) mg/dL Creatinine (0.55-1.02) mg/dL Est Cr Clr Drug Dosing mL/min Estimated GFR (MDRD) (>60) BUN/Creatinine Ratio (9-20) Glucose (80-116) mg/dL Lactic Acid 7.6 H* (0.4-2.0) mmol/L Calcium (8.6-10.2) mg/dL Total Bilirubin (0.1-1.3) mg/dL AST (5-25) IU/L ALT (12-36) U/L Alkaline Phosphatase (56-112) IU/L Total Protein (6.0-8.0) g/dL Albumin (3.2-4.6) g/dL Globulin g/dL Albumin/Globulin Ratio Amylase (25-115) U/L Lipase (73-393) U/L SARS-CoV-2 RNA (COLLETTE) Negative (NEGATIVE) Result Diagrams: 07/24/20 10:30 07/24/20 10:30 Sepsis Event Note - Evaluation Sepsis Screening Result: Possible Sepsis Risk Possible Source of Sepsis: GI Tract/Intra-abdominal - Focused Exam Vital Signs: Vital Signs Temp Pulse Resp BP Pulse Ox 07/24/20 12:32 63 124/53 L 07/24/20 10:15 97.0 F 98 21 H 126/78 99 Pulse Description: 3+ Bounding Peripheral Pulse Location: Radial *Q Meaningful Use (ADM) - VTE Risk Assess *Q Each Risk Factor Represents 1 Point: Sepsis Total Score 1 Point Risk Factors: 1 Each Risk Factor Represents 2 Points: Age 60 - 74 Years Total Score 2 Point Risk Factors: 2 Each Risk Factor Represents 3 Points: None Total Score 3 Point Risk Factors: 0 Each Risk Factor Represents 5 Points: None Total Score 5 Point Risk Factors: 0 Venous Thromboembolism Risk Factor Score *Q: 3 - Problem List (1) Sepsis SNOMED Code(s): 31271854 ICD Code: A41.9 - SEPSIS, UNSPECIFIED ORGANISM Status: Acute Current Visit: Yes (2) Nausea & vomiting SNOMED Code(s): 73892278 ICD Code: R11.2 - NAUSEA WITH VOMITING, UNSPECIFIED Status: Acute Current Visit: Yes (3) Bowel obstruction SNOMED Code(s): 96227403 ICD Code: K56.609 - UNSP INTESTNL OBST, UNSP TO PARTIAL VERSUS COMPLETE OBST Status: Acute Current Visit: Yes (4) Dehydration SNOMED Code(s): 17150250 ICD Code: E86.0 - DEHYDRATION Status: Acute Current Visit: Yes (5) Rheumatoid arthritis SNOMED Code(s): 56836904 ICD Code: M06.9 - RHEUMATOID ARTHRITIS, UNSPECIFIED Status: Chronic Current Visit: Yes (6) Hypothyroid SNOMED Code(s): 03152833 ICD Code: E03.9 - HYPOTHYROIDISM, UNSPECIFIED Status: Chronic Current Visit: Yes Problem List Initiated/Reviewed/Updated: Yes Orders Last 24hrs: Active Orders 24 hr Category Date Time Status Patient Status [ADT] Routine ADT 07/24/20 14:47 Active Mir Catheter Insertion [Insert Urinary Catheter] [OM. Care 07/24/20 17:30 Ordered PC] Q24H Intake and Output [RC] QSHIFT Care 07/24/20 16:06 Active Notify Provider Consults [RC] ASDIRECTED Care 07/24/20 16:12 Active Oxygen Therapy [RC] PRN Care 07/24/20 14:47 Active Oxygen Therapy [RC] PRN Care 07/24/20 16:06 Active Urinary Catheter Assessment [RC] QSHIFT Care 07/24/20 17:18 Active VTE/DVT Education [RC] Per Unit Routine Care 07/24/20 14:47 Active VTE/DVT Education [RC] Per Unit Routine Care 07/24/20 16:06 Active Vital Signs [RC] Q4H Care 07/24/20 14:47 Active Consult to Physician [CONS] Routine Cons 07/24/20 16:06 Ordered Nothing per Oral Now Diet [DIET] Diet 07/24/20 Dinner Active Abdomen 1V Flat [CR] Stat Exams 07/24/20 15:02 Taken Abdomen Pelvis wo Cont [CT] Stat Exams 07/24/20 11:39 Taken BASIC METABOLIC PANEL,BMP [CHEM] Routine Lab 07/24/20 16:22 Ordered BASIC METABOLIC PANEL,BMP [CHEM] Routine Lab 07/24/20 20:22 Ordered BASIC METABOLIC PANEL,BMP [CHEM] Routine Lab 07/25/20 06:00 Ordered CBC WITH AUTO DIFF [HEME] Routine Lab 07/24/20 16:22 Ordered CBC WITH AUTO DIFF [HEME] Routine Lab 07/24/20 20:22 Ordered CBC WITH AUTO DIFF [HEME] Routine Lab 07/25/20 06:00 Ordered CULTURE BLOOD [BC] Urgent Lab 07/24/20 16:29 Ordered LACTIC ACID [CHEM] Routine Lab 07/24/20 16:22 Ordered LACTIC ACID [CHEM] Routine Lab 07/24/20 20:22 Ordered UA W/MICROSCOPIC [URIN] Stat Lab 07/24/20 10:50 Ordered Acetaminophen [Tylenol] Med 07/24/20 16:18 Active 650 mg RECTAL Q4H PRN Enoxaparin [Lovenox] Med 07/24/20 16:15 Active 30 mg SUBCUT Q24H Ketorolac [Toradol] Med 07/24/20 16:36 Active 30 mg IVPUSH Q6H PRN Lactated Ringers [Ringers, Lactated] 1,000 ml Med 07/24/20 16:45 Active IV ASDIRECTED Ondansetron [Zofran] Med 07/24/20 16:06 Active 4 mg IV Q4H PRN Piperacillin/Tazobactam [Zosyn] 3.375 gm Med 07/24/20 15:15 Active Sodium Chloride 0.9% [Normal Saline] 50 ml IV Q6H Potassium Chloride [KCL 20 MEQ in Water 100 ML] 100 ml Med 07/24/20 17:00 Active IV Q2H Sodium Chloride 0.9% [Normal Saline] 1,000 ml Med 07/24/20 10:50 Active IV .BOLUS Nasogastric Orogastric Tube Insertion [OM.PC] Routine Oth 07/24/20 14:42 Ordered Sequential Compression Device [OM.PC] Per Unit Routine Oth 07/24/20 16:06 Ordered Resuscitation Status Routine Resus Stat 07/24/20 14:47 Ordered Medication Orders Acetaminophen (Tylenol) 650 mg RECTAL Q4H PRN PRN Reason: Mild pain/fever Enoxaparin Sodium (Lovenox) 30 mg SUBCUT Q24H SOBEIDA Sodium Chloride (Normal Saline) 1,000 mls @ 999 drops/hr IV .BOLUS ONE Stop: 07/25/20 01:50 Last Admin: 07/24/20 12:22 Dose: Not Given Documented by: RAFAEL Piperacillin Sod/Tazobactam (Sod 3.375 gm/ Sodium Chloride) 50 mls @ 100 mls/hr IV Q6H [facility] Last Admin: 07/24/20 15:53 Dose: 100 mls/hr Documented by: DRAPJUL Lactated Ringer's (Ringers, Lactated) 1,000 mls @ 250 mls/hr IV ASDIRECTED [facility] Potassium Chloride (Kcl 20 Meq In Water 100 Ml) 100 mls @ 50 mls/hr IV Q2H [facility] Stop: 07/24/20 20:59 Ketorolac Tromethamine (Toradol) 30 mg IVPUSH Q6H PRN PRN Reason: Pain (moderate 4-6) Stop: 07/29/20 16:36 Ondansetron HCl (Zofran) 4 mg IV Q4H PRN PRN Reason: Nausea/Vomiting Assessment/Plan Comment:: 1. Admit for small bowel obstruction, early sepsis, dehydration, vomiting. 2. SBO: Zosyn 3.375 gm IV q6h, repeat CBC, BMP, Lactic every 4 hours until lactic acid normalizes, BC x 2. NG with low intermittent suction. Dr Brown, Surgeon promotion manager, has seen patient on the floor see his dictation. Received 2 Liters of NS in ER, switched to Lactated ringers at 250 ml/hr. Mir for strict I&Os. Discussed with Dr Brown narcotics pain medications, would like to avoid so will do Tylenol 650 mg MS q4h as needed and Toradol 30 mg IV q6h as needed. 3. Dehydration: LR at 250 ml/hr, Mir to monitor output. 4. Hypokalemia: KCL 10 mEq x 1 started in ER, follow that with KCL 20 mEq IV x 2, over 5 hours. Repeat labs as above. 5. Diet: NPO, NG in place. 6. DVT: Lovenox 30 mg SQ q24h, SCDs on BLE. 7. Hold all home medications at this time. 8. CODE STATUS: FULL - Mortality Measure Prognosis:: Good
[2020-07-24] MEDS: Potassium Chloride 100 ML IV SCH ×2 (17:55→20:07)
--- NOTE | 2020-07-24 18:38 | CONS ---
DATE OF CONSULTATION: 07/24/2020 HISTORY: This 60-year-old female was seen in consultation by Dr. Acosta for small bowel obstruction. The patient became ill yesterday afternoon with abdominal pain, nausea, and vomiting. She presented to the emergency room this morning and has been thoroughly evaluated by Dr. Patrick. Her pain was 10/10 and is now feeling better after receiving IV Dilaudid and IV hydration. CT scan was obtained, which shows a small bowel obstruction in the distal portion of the small bowel. There is no free air present. NG tube was placed, approximately 400 mL of bilious fluid was removed. Laboratory evaluation reveals a WBC elevated at 22.6. Hemoglobin is 16.7. Creatinine is elevated at 1.6 and lactic acid is elevated at 7.6. Those were drawn at 0800 hours. It is beyond 8 hours since those were drawn, and we will have them rechecked. In the emergency room, she has received 2 L of IV fluids and has made a little urine. She will need Mir catheter to monitor fluid resuscitation. PAST MEDICAL HISTORY: Significant for open appendectomy at a young age with a large paramedian incision for perforated appendicitis. She has also had a previous . Those were her only previous abdominal surgeries. Her other medical history is significant for rheumatoid arthritis, treated with prednisone. She is also treated for hypothyroidism. PHYSICAL EXAMINATION: GENERAL: Reveals a lady who is resting comfortably and somewhat drowsy from the IV Dilaudid. She was in her inpatient room with her present. VITAL SIGNS: Recorded and within normal limits. She has been afebrile. LUNGS: Clear. Respirations are unlabored. ABDOMEN: Mildly distended. Soft and nontender. There are no masses or hernias present. She does have liquid diarrhea stool present. ASSESSMENT: Small bowel obstruction. PLAN: The patient will be monitored closely with IV fluid hydration and Mir catheter placed to monitor urine output. Lactic acid, WBC, and creatinine will be rechecked. Potassium was also low and will be supplemented in her IV fluids. /[id number] LAURA/DIONI
[2020-07-24] MEDS ORDERED: Morphine 2 MG/ML SYRINGE IVPUSH PRN (20:14)
[2020-07-24] MEDS: Sodium Chloride 0.9% 10 ML Syringe FLUSH PRN ×2 (22:00→22:47)
[2020-07-25] MEDS: Lactated Ringers 1,000 ML IV SCH ×2 (01:21→06:02)
[2020-07-25] MEDS: Morphine 2 MG/ML SYRINGE IVPUSH PRN ×2 (02:29→04:57)
[2020-07-25] MEDS: Piperacillin/Tazobactam 3.375 GM in Sodium Chloride 0.9% 50 ML IV SCH ×5 (03:55→22:03)
[2020-07-25] MEDS: Sodium Chloride 0.9% 10 ML Syringe FLUSH PRN ×2 (04:00→04:45)
[2020-07-25] MEDS ORDERED: Ketorolac 15 MG/ML SDV IVPUSH PRN (08:13)
[2020-07-25] MEDS ORDERED: Dexamethasone 4 MG/ML SDV IVPUSH SCH (09:00)
[2020-07-25] MEDS: Dextrose 5%-Lactated Ringers 1,000 ML IV SCH ×2 (09:05→19:42)
--- NOTE | 2020-07-25 09:31 | PCM.PN ---
- General Info Date of Service: 07/25/20 Subjective Update: Andie had more pain last night, pharmacy wanted dose of Toradol decreased to 15 mg though her function was improving with IVF but ER doctor added Morphine. Her RA is bothering her this morning. She has been snoring this morning, having 660 ml in Mir overnight and 100 ml so far out of NG. Pharmacy calculated Dexamethasone 1 mg IV would be equivalent dose of Prednisone 5 mg. Her kidney function is back up to normal. WBC back to normal this morning. Dr Rosas is covering for Dr Brown today. - Patient Data Vitals - Most Recent: Last Vital Signs Temp 98.5 F 07/25/20 07:55 Pulse 108 H 07/25/20 07:55 Resp 24 H 07/25/20 07:55 BP 146/76 H 07/25/20 07:55 Pulse Ox 95 07/25/20 07:55 Weight - Most Recent: 127 lb 3.2 oz I&O - Last 24 Hours: Intake & Output 07/24/20 07/25/20 07/25/20 22:59 06:59 14:59 Intake Total 1615 1670 685 Output Total 275 485 Balance 1340 1185 685 Lab Results Last 24 Hours: Laboratory Results - last 24 hr 07/24/20 07/24/20 07/24/20 Range/Units 10:30 10:30 10:30 WBC 22.6 H (3.0-10.3) x10-3/uL RBC 7.18 H (3.60-5.20) x10(6)uL Hgb 16.7 H (11.4-15.5) g/dL Hct 52.0 H (34.2-48.2) % MCV 72.5 L (76.7-100.5) fL MCH 23.3 L (23.9-33.9) pg MCHC 32.1 (31.9-34.8) g/dL RDW 18.7 H (12.3-16.5) % Plt Count 507 H (151-488) x10(3)uL MPV 8.1 (7.1-12.4) fL Neut % (Auto) (30.8-76.2) % Lymph % (Auto) (18.4-52.1) % Crook % (Auto) (4.4-15.7) % Eos % (Auto) (0.6-8.1) % Baso % (Auto) (0.2-1.5) % Neut # (Auto) (1.5-6.3) x10-3/uL Lymph # (Auto) (1.0-4.4) x10-3/uL Crook # (Auto) (0.3-1.0) x10-3/uL Eos # (Auto) (0.0-0.8) x10-3/uL Baso # (Auto) (0.0-0.1) x10-3/uL Add Manual Diff Yes Neutrophils % (Manual) 73 (46-82) % Band Neutrophils % 3 (0-6) % Lymphocytes % (Manual) 20 (13-37) % Monocytes % (Manual) 4 (4-12) % Sodium 141 (135-145) mmol/L Potassium 2.9 L (3.5-5.3) mmol/L Chloride 95 L D (100-110) mmol/L Carbon Dioxide 27 (21-32) mmol/L BUN 17 (7-18) mg/dL Creatinine 1.6 H (0.55-1.02) mg/dL Est Cr Clr Drug Dosing 28.21 mL/min Estimated GFR (MDRD) 33 L (>60) BUN/Creatinine Ratio 10.6 (9-20) Glucose 181 H (80-116) mg/dL Lactic Acid (0.4-2.0) mmol/L Calcium 9.8 (8.6-10.2) mg/dL Total Bilirubin 1.1 (0.1-1.3) mg/dL AST 22 (5-25) IU/L ALT 23 (12-36) U/L Alkaline Phosphatase 118 H (56-112) IU/L Total Protein 8.7 H (6.0-8.0) g/dL Albumin 4.1 (3.2-4.6) g/dL Globulin 4.6 g/dL Albumin/Globulin Ratio 0.9 Amylase 53 (25-115) U/L Lipase 200 (73-393) U/L Urine Color (YELLOW) Urine Appearance (CLEAR) Urine pH (5.0-6.5) Ur Specific [place] (1.010-1.025) Urine Protein (NEGATIVE) mg/dL Urine Glucose (UA) (NORMAL) mg/dL Urine Ketones (NEGATIVE) mg/dL Urine Occult Blood (NEGATIVE) Urine Nitrite (NEGATIVE) Urine Bilirubin (NEGATIVE) Urine Urobilinogen (NEGATIVE) mg/dL Ur Leukocyte Esterase (NEGATIVE) Urine RBC (0-5) Urine WBC (0-5) Ur Squamous Epith Cells (NS,R,O) Amorphous Sediment Urine Bacteria (NS) SARS-CoV-2 RNA (COLLETTE) (NEGATIVE) 07/24/20 07/24/20 07/24/20 Range/Units 10:30 11:03 17:10 WBC (3.0-10.3) x10-3/uL RBC (3.60-5.20) x10(6)uL Hgb (11.4-15.5) g/dL Hct (34.2-48.2) % MCV (76.7-100.5) fL MCH (23.9-33.9) pg MCHC (31.9-34.8) g/dL RDW (12.3-16.5) % Plt Count (151-488) x10(3)uL MPV (7.1-12.4) fL Neut % (Auto) (30.8-76.2) % Lymph % (Auto) (18.4-52.1) % Crook % (Auto) (4.4-15.7) % Eos % (Auto) (0.6-8.1) % Baso % (Auto) (0.2-1.5) % Neut # (Auto) (1.5-6.3) x10-3/uL Lymph # (Auto) (1.0-4.4) x10-3/uL Crook # (Auto) (0.3-1.0) x10-3/uL Eos # (Auto) (0.0-0.8) x10-3/uL Baso # (Auto) (0.0-0.1) x10-3/uL Add Manual Diff Neutrophils % (Manual) (46-82) % Band Neutrophils % (0-6) % Lymphocytes % (Manual) (13-37) % Monocytes % (Manual) (4-12) % Sodium (135-145) mmol/L Potassium (3.5-5.3) mmol/L Chloride (100-110) mmol/L Carbon Dioxide (21-32) mmol/L BUN (7-18) mg/dL Creatinine (0.55-1.02) mg/dL Est Cr Clr Drug Dosing mL/min Estimated GFR (MDRD) (>60) BUN/Creatinine Ratio (9-20) Glucose (80-116) mg/dL Lactic Acid 7.6 H* 4.1 H* (0.4-2.0) mmol/L Calcium (8.6-10.2) mg/dL Total Bilirubin (0.1-1.3) mg/dL AST (5-25) IU/L ALT (12-36) U/L Alkaline Phosphatase (56-112) IU/L Total Protein (6.0-8.0) g/dL Albumin (3.2-4.6) g/dL Globulin g/dL Albumin/Globulin Ratio Amylase (25-115) U/L Lipase (73-393) U/L Urine Color (YELLOW) Urine Appearance (CLEAR) Urine pH (5.0-6.5) Ur Specific [place] (1.010-1.025) Urine Protein (NEGATIVE) mg/dL Urine Glucose (UA) (NORMAL) mg/dL Urine Ketones (NEGATIVE) mg/dL Urine Occult Blood (NEGATIVE) Urine Nitrite (NEGATIVE) Urine Bilirubin (NEGATIVE) Urine Urobilinogen (NEGATIVE) mg/dL Ur Leukocyte Esterase (NEGATIVE) Urine RBC (0-5) Urine WBC (0-5) Ur Squamous Epith Cells (NS,R,O) Amorphous Sediment Urine Bacteria (NS) SARS-CoV-2 RNA (COLLETTE) Negative (NEGATIVE) 07/24/20 07/24/20 07/24/20 Range/Units 17:10 17:10 18:10 WBC 14.4 H (3.0-10.3) x10-3/uL RBC 6.92 H (3.60-5.20) x10(6)uL Hgb 15.3 (11.4-15.5) g/dL Hct 50.6 H (34.2-48.2) % MCV 73.1 L (76.7-100.5) fL MCH 22.2 L (23.9-33.9) pg MCHC 30.3 L (31.9-34.8) g/dL RDW 18.9 H (12.3-16.5) % Plt Count 292 (151-488) x10(3)uL MPV 8.1 (7.1-12.4) fL Neut % (Auto) 67.7 (30.8-76.2) % Lymph % (Auto) 19.4 (18.4-52.1) % Crook % (Auto) 12.2 (4.4-15.7) % Eos % (Auto) 0.3 L (0.6-8.1) % Baso % (Auto) 0.4 (0.2-1.5) % Neut # (Auto) 9.8 H (1.5-6.3) x10-3/uL Lymph # (Auto) 2.8 (1.0-4.4) x10-3/uL Crook # (Auto) 1.8 H (0.3-1.0) x10-3/uL Eos # (Auto) 0.0 (0.0-0.8) x10-3/uL Baso # (Auto) 0.1 (0.0-0.1) x10-3/uL Add Manual Diff Neutrophils % (Manual) (46-82) % Band Neutrophils % (0-6) % Lymphocytes % (Manual) (13-37) % Monocytes % (Manual) (4-12) % Sodium 141 (135-145) mmol/L Potassium 3.2 L (3.5-5.3) mmol/L Chloride 102 D (100-110) mmol/L Carbon Dioxide 23 (21-32) mmol/L BUN 18 (7-18) mg/dL Creatinine 1.2 H (0.55-1.02) mg/dL Est Cr Clr Drug Dosing 41.24 mL/min Estimated GFR (MDRD) 46 L (>60) BUN/Creatinine Ratio 15.0 (9-20) Glucose 103 (80-116) mg/dL Lactic Acid (0.4-2.0) mmol/L Calcium 7.9 L (8.6-10.2) mg/dL Total Bilirubin (0.1-1.3) mg/dL AST (5-25) IU/L ALT (12-36) U/L Alkaline Phosphatase (56-112) IU/L Total Protein (6.0-8.0) g/dL Albumin (3.2-4.6) g/dL Globulin g/dL Albumin/Globulin Ratio Amylase (25-115) U/L Lipase (73-393) U/L Urine Color Yellow (YELLOW) Urine Appearance Clear (CLEAR) Urine pH 5.0 (5.0-6.5) Ur Specific [place] 1.015 (1.010-1.025) Urine Protein Trace (NEGATIVE) mg/dL Urine Glucose (UA) Normal (NORMAL) mg/dL Urine Ketones 15 H (NEGATIVE) mg/dL Urine Occult Blood Negative (NEGATIVE) Urine Nitrite Negative (NEGATIVE) Urine Bilirubin Small H (NEGATIVE) Urine Urobilinogen Normal (NEGATIVE) mg/dL Ur Leukocyte Esterase Negative (NEGATIVE) Urine RBC 0-5 (0-5) Urine WBC 0-5 (0-5) Ur Squamous Epith Cells Occasional (NS,R,O) Amorphous Sediment Moderate Urine Bacteria Few H (NS) SARS-CoV-2 RNA (COLLETTE) (NEGATIVE) 07/24/20 07/24/20 07/24/20 Range/Units 21:05 21:05 21:05 WBC 8.7 (3.0-10.3) x10-3/uL RBC 6.24 H (3.60-5.20) x10(6)uL Hgb 14.2 (11.4-15.5) g/dL Hct 45.5 (34.2-48.2) % MCV 72.9 L (76.7-100.5) fL MCH 22.8 L (23.9-33.9) pg MCHC 31.2 L (31.9-34.8) g/dL RDW 18.8 H (12.3-16.5) % Plt Count 258 (151-488) x10(3)uL MPV 7.7 (7.1-12.4) fL Neut % (Auto) 64.6 (30.8-76.2) % Lymph % (Auto) 23.6 (18.4-52.1) % Crook % (Auto) 11.1 (4.4-15.7) % Eos % (Auto) 0.3 L (0.6-8.1) % Baso % (Auto) 0.4 (0.2-1.5) % Neut # (Auto) 5.6 (1.5-6.3) x10-3/uL Lymph # (Auto) 2.0 (1.0-4.4) x10-3/uL [place] # (Auto) 1.0 (0.3-1.0) x10-3/uL Eos # (Auto) 0.0 (0.0-0.8) x10-3/uL Baso # (Auto) 0.0 (0.0-0.1) x10-3/uL Add Manual Diff Neutrophils % (Manual) (46-82) % Band Neutrophils % (0-6) % Lymphocytes % (Manual) (13-37) % Monocytes % (Manual) (4-12) % Sodium 141 (135-145) mmol/L Potassium 4.3 D (3.5-5.3) mmol/L Chloride 105 (100-110) mmol/L Carbon Dioxide 25 (21-32) mmol/L BUN 19 H (7-18) mg/dL Creatinine 1.1 H (0.55-1.02) mg/dL Est Cr Clr Drug Dosing 44.99 mL/min Estimated GFR (MDRD) 51 L (>60) BUN/Creatinine Ratio 17.3 (9-20) Glucose 85 (80-116) mg/dL Lactic Acid 1.9 (0.4-2.0) mmol/L Calcium 7.4 L (8.6-10.2) mg/dL Total Bilirubin (0.1-1.3) mg/dL AST (5-25) IU/L ALT (12-36) U/L Alkaline Phosphatase (56-112) IU/L Total Protein (6.0-8.0) g/dL Albumin (3.2-4.6) g/dL Globulin g/dL Albumin/Globulin Ratio Amylase (25-115) U/L Lipase (73-393) U/L Urine Color (YELLOW) Urine Appearance (CLEAR) Urine pH (5.0-6.5) Ur Specific [place] (1.010-1.025) Urine Protein (NEGATIVE) mg/dL Urine Glucose (UA) (NORMAL) mg/dL Urine Ketones (NEGATIVE) mg/dL Urine Occult Blood (NEGATIVE) Urine Nitrite (NEGATIVE) Urine Bilirubin (NEGATIVE) Urine Urobilinogen (NEGATIVE) mg/dL Ur Leukocyte Esterase (NEGATIVE) Urine RBC (0-5) Urine WBC (0-5) Ur Squamous Epith Cells (NS,R,O) Amorphous Sediment Urine Bacteria (NS) SARS-CoV-2 RNA (COLLETTE) (NEGATIVE) 07/25/20 07/25/20 Range/Units 08:23 08:23 WBC 8.0 (3.0-10.3) x10-3/uL RBC 5.94 H (3.60-5.20) x10(6)uL Hgb 13.6 (11.4-15.5) g/dL Hct 43.1 (34.2-48.2) % MCV 72.5 L (76.7-100.5) fL MCH 23.0 L (23.9-33.9) pg MCHC 31.7 L (31.9-34.8) g/dL RDW 19.4 H (12.3-16.5) % Plt Count 211 (151-488) x10(3)uL MPV 7.7 (7.1-12.4) fL Neut % (Auto) 69.7 (30.8-76.2) % Lymph % (Auto) 20.2 (18.4-52.1) % [place] % (Auto) 9.2 (4.4-15.7) % Eos % (Auto) 0.4 L (0.6-8.1) % Baso % (Auto) 0.5 (0.2-1.5) % Neut # (Auto) 5.6 (1.5-6.3) x10-3/uL Lymph # (Auto) 1.6 (1.0-4.4) x10-3/uL [place] # (Auto) 0.7 (0.3-1.0) x10-3/uL Eos # (Auto) 0.0 (0.0-0.8) x10-3/uL Baso # (Auto) 0.0 (0.0-0.1) x10-3/uL Add Manual Diff Neutrophils % (Manual) (46-82) % Band Neutrophils % (0-6) % Lymphocytes % (Manual) (13-37) % Monocytes % (Manual) (4-12) % Sodium 140 (135-145) mmol/L Potassium 3.5 (3.5-5.3) mmol/L Chloride 102 (100-110) mmol/L Carbon Dioxide 25 (21-32) mmol/L BUN 16 (7-18) mg/dL Creatinine 0.7 (0.55-1.02) mg/dL Est Cr Clr Drug Dosing 70.70 mL/min Estimated GFR (MDRD) > 60 (>60) BUN/Creatinine Ratio 22.9 H (9-20) Glucose 60 L (80-116) mg/dL Lactic Acid (0.4-2.0) mmol/L Calcium 7.8 L (8.6-10.2) mg/dL Total Bilirubin (0.1-1.3) mg/dL AST (5-25) IU/L ALT (12-36) U/L Alkaline Phosphatase (56-112) IU/L Total Protein (6.0-8.0) g/dL Albumin (3.2-4.6) g/dL Globulin g/dL Albumin/Globulin Ratio Amylase (25-115) U/L Lipase (73-393) U/L Urine Color (YELLOW) Urine Appearance (CLEAR) Urine pH (5.0-6.5) Ur Specific [place] (1.010-1.025) Urine Protein (NEGATIVE) mg/dL Urine Glucose (UA) (NORMAL) mg/dL Urine Ketones (NEGATIVE) mg/dL Urine Occult Blood (NEGATIVE) Urine Nitrite (NEGATIVE) Urine Bilirubin (NEGATIVE) Urine Urobilinogen (NEGATIVE) mg/dL Ur Leukocyte Esterase (NEGATIVE) Urine RBC (0-5) Urine WBC (0-5) Ur Squamous Epith Cells (NS,R,O) Amorphous Sediment Urine Bacteria (NS) SARS-CoV-2 RNA (COLLETTE) (NEGATIVE) [place]ual Results Last 24 Hours: Microbiology 07/24/20 16:52 Anaerobic Blood Culture - Final Blood - Venous 07/24/20 16:55 Anaerobic Blood Culture - Final Blood Med Orders - Current: Current Medications Acetaminophen (Tylenol) 650 mg RECTAL Q4H PRN PRN Reason: Mild pain/fever Dexamethasone (Decadron) 1 mg IVPUSH DAILY [facility] Last Admin: 07/25/20 09:02 Dose: 1 mg Documented by: Enoxaparin Sodium (Lovenox) 40 mg SUBCUT DAILY@1800 SOBEIDA Piperacillin Sod/Tazobactam (Sod 3.375 gm/ Sodium Chloride) 50 mls @ 100 mls/hr IV Q6H [facility] Last Admin: 07/25/20 03:55 Dose: 100 mls/hr Documented by: Dextrose/Lactated Ringer's (Dextrose 5%-Lactated Ringers) 1,000 mls @ 125 mls/hr IV ASDIRECTED [facility] Last Admin: 07/25/20 09:05 Dose: 125 mls/hr Documented by: Ketorolac Tromethamine (Toradol) 30 mg IVPUSH Q6H PRN PRN Reason: PAIN/FEVER Ondansetron HCl (Zofran) 4 mg IV Q4H PRN PRN Reason: Nausea/Vomiting Sodium Chloride (Saline Flush) 10 ml FLUSH ASDIRECTED PRN PRN Reason: flush for iv meds Last Admin: 07/25/20 04:45 Dose: 10 ml Documented by: Discontinued Medications Enoxaparin Sodium (Lovenox) 30 mg SUBCUT Q24H [facility] Last Admin: 07/24/20 17:52 Dose: 30 mg Documented by: Hydromorphone HCl (Dilaudid) 1 mg IVPUSH ONETIME ONE Stop: 07/24/20 10:44 Last Admin: 07/24/20 10:55 Dose: 1 mg Documented by: Hydromorphone HCl (Dilaudid) 1 mg IVPUSH ONETIME ONE Stop: 07/24/20 12:22 Last Admin: 07/24/20 12:24 Dose: 1 mg Documented by: Hydromorphone HCl (Dilaudid) 1 mg IVPUSH Q2H PRN PRN Reason: Pain (severe 7-10) Sodium Chloride (Normal Saline) 1,000 mls @ 999 mls/hr IV .BOLUS ONE Stop: 07/24/20 11:44 Last Admin: 07/24/20 10:30 Dose: 999 mls/hr Documented by: Sodium Chloride (Normal Saline) 1,000 mls @ 999 drops/hr IV .BOLUS ONE Stop: 07/25/20 01:50 Last Admin: 07/24/20 12:22 Dose: Not Given Documented by: Sodium Chloride (Normal Saline) 1,000 mls @ 999 mls/hr IV ASDIRECTED [facility] Last Admin: 07/24/20 11:47 Dose: 999 mls/hr Documented by: Piperacillin Sod/Tazobactam (Sod 3.375 gm/ Sodium Chloride) 50 mls @ 100 mls/hr IV Q6H [facility] Last Admin: 07/25/20 03:56 Dose: Not Given Documented by: Potassium Chloride 10 meq/ (Premix) 100 mls @ 100 mls/hr IV ONETIME ONE Stop: 07/24/20 16:11 Last Admin: 07/24/20 16:50 Dose: 100 mls/hr Documented by: Lactated Ringer's (Ringers, Lactated) 1,000 mls @ 150 mls/hr IV ASDIRECTED [facility] Potassium Chloride 20 meq/ (Lactated Ringer's) 1,010 mls @ 150 mls/hr IV ASDIRECTED [facility] Lactated Ringer's (Ringers, Lactated) 1,000 mls @ 125 mls/hr IV ASDIRECTED [facility] Last Admin: 07/25/20 06:02 Dose: 250 mls/hr Documented by: Potassium Chloride (Kcl 20 Meq In Water 100 Ml) 100 mls @ 50 mls/hr IV Q2H [facility] Stop: 07/24/20 20:59 Last Admin: 07/24/20 20:07 Dose: 50 mls/hr Documented by: Ketorolac Tromethamine (Toradol) 30 mg IVPUSH Q6H PRN PRN Reason: Pain (moderate 4-6) Stop: 07/29/20 16:36 Ketorolac Tromethamine (Toradol) 15 mg IVPUSH Q6H PRN PRN Reason: Pain/Fever Last Admin: 07/25/20 08:28 Dose: 15 mg Documented by: Metoclopramide HCl (Reglan) 10 mg IVPUSH ONETIME ONE Stop: 07/24/20 11:49 Last Admin: 07/24/20 11:54 Dose: 10 mg Documented by: Morphine Sulfate (Morphine) 2 mg IVPUSH Q4H PRN PRN Reason: Pain Last Admin: 07/24/20 23:00 Dose: 2 mg Documented by: Morphine Sulfate (Morphine) 2 mg IVPUSH Q2H PRN PRN Reason: Pain Last Admin: 07/25/20 04:57 Dose: 2 mg Documented by: Ondansetron HCl (Zofran) 4 mg IVPUSH ONETIME ONE Stop: 07/24/20 10:44 Last Admin: 07/24/20 10:50 Dose: 4 mg Documented by: - Exam General: Cooperative, No Acute Distress, Lethargic (snoring) Lungs: Clear to Auscultation, Normal Respiratory Effort, Decreased Breath Sounds (bases) Cardiovascular: Tachycardia (bounding), Murmurs GI/Abdominal Exam: Soft, Distended, Guarding, Tender, Abnormal Bowel Sounds (hypoactive). No: Rigid, Rebound Sepsis Event Note - Evaluation Sepsis Screening Result: Sepsis Risk - Focused Exam Vital Signs: Vital Signs Temp Pulse Pulse Resp BP Pulse Ox 07/25/20 07:55 98.5 F 108 H 24 H 146/76 H 95 07/25/20 04:00 98.4 F 116 H 20 131/69 93 L 07/25/20 01:00 119 H 24 H 131/75 92 L 07/24/20 23:00 98.8 F 130 H 24 H 128/75 94 L - Problem List & Annotations (1) Bowel obstruction SNOMED Code(s): 17438414 Code(s): K56.609 - UNSP INTESTNL OBST, UNSP TO PARTIAL VERSUS COMPLETE OBST Status: Acute Current Visit: Yes Annotation/Comment:: NPO with NG to low intermittent suction. D5LR at 125 ml/hr. Tylenol 650 mg AR q4h and Toradol 30 mg IV q6h for pain in addition Dexamethasone 1 mg IV for her RA. If rectal suppository is not working(staying in) due to diarrhea could do Ofirmev for 24 hours. Continue to monitor with Dr Rosas and adjust as needed. (2) Dehydration SNOMED Code(s): 26764896 Code(s): E86.0 - DEHYDRATION Status: Acute Current Visit: Yes Annotation/Comment:: improving (3) Rheumatoid arthritis SNOMED Code(s): 51754543 Code(s): M06.9 - RHEUMATOID ARTHRITIS, UNSPECIFIED Status: Chronic Current Visit: Yes Annotation/Comment:: Dexamethasone 1 mg IV daily until she can take orals. (4) Hypothyroid SNOMED Code(s): 38760649 Code(s): E03.9 - HYPOTHYROIDISM, UNSPECIFIED Status: Chronic Current Visit: Yes (5) Sepsis SNOMED Code(s): 88923460 Code(s): A41.9 - SEPSIS, UNSPECIFIED ORGANISM Status: Resolved Current Visit: Yes (6) Nausea & vomiting SNOMED Code(s): 13825767 Code(s): R11.2 - NAUSEA WITH VOMITING, UNSPECIFIED Status: Resolved Current Visit: Yes - Problem List Review Problem List Initiated/Reviewed/Updated: Yes - My Orders Last 24 Hours: My Active Orders 07/24/20 16:06 Oxygen Therapy [RC] PRN VTE/DVT Education [RC] Per Unit Routine Consult to Physician [CONS] Routine Ondansetron [Zofran] 4 mg IV Q4H PRN Sequential Compression Device [OM.PC] Per Unit Routine 07/24/20 16:12 Notify Provider Consults [RC] ASDIRECTED 07/24/20 Dinner Nothing per Oral Now Diet [DIET] 07/24/20 16:18 Acetaminophen [Tylenol] 650 mg RECTAL Q4H PRN 07/24/20 16:52 CULTURE BLOOD [BC] Urgent 07/24/20 16:55 CULTURE BLOOD [BC] Routine 07/24/20 17:18 Urinary Catheter Assessment [RC] QSHIFT 07/24/20 17:30 Mir Catheter Insertion [Insert Urinary Catheter] [OM.PC] Q24H 07/24/20 22:00 Intake and Output [RC] 06,10,14,18,22 07/24/20 22:27 Sodium Chloride 0.9% [Saline Flush] 10 ml FLUSH ASDIRECTED PRN 07/25/20 08:45 Dextrose 5%-Lactated Ringers 1,000 ml IV ASDIRECTED 07/25/20 09:00 dexAMETHasone [Decadron] 1 mg IVPUSH DAILY 07/25/20 14:30 Ketorolac [Toradol] 30 mg IVPUSH Q6H PRN 07/25/20 18:00 Enoxaparin [Lovenox] 40 mg SUBCUT DAILY@1800 07/26/20 06:00 BASIC METABOLIC PANEL,BMP [CHEM] Routine CBC WITH AUTO DIFF [HEME] Routine - Plan Plan:: 1. SBO: Zosyn 3.375 gm IV q6h, day 2, repeat CBC, BMP, tomorrow. Lactic corrected. BC x 2 pending. NG with low intermittent suction. Dr Rosas covering for Dr Brown. Tylenol 650 mg AR q4h as needed and Toradol 30 mg IV q6h as needed. If rectal Tylenol is not staying in place long enough to work, Ofirmev can be used for 24 hours. 2. Dehydration: LR at 125 ml/hr, Mir to monitor output. 3. Hypokalemia: resolved. Continue to monitor. 4. Diet: NPO, NG in place. 5. DVT: Lovenox 40 mg SQ q24h, SCDs on BLE.
--- NOTE | 2020-07-25 10:43 | CR ---
INDICATION: Followup small bowel obstruction. ABDOMEN X-RAY: Two supine views of the abdomen were obtained 07/25/20 and compared with 07/24/20 again revealing a nasogastric tube in place, unchanged in position and felt to be adequate in position. Oral contrast is noted in the large bowel with no definite small bowel obstruction identified at this time. No organomegaly, mass lesions or nonvascular pathologic calcifications are noted. There may be some minimal aortic calcification present. IMPRESSION: There appears to be interval resolution of small bowel obstruction. MTDD
--- NOTE | 2020-07-25 11:00 | PCM.SURGPN ---
- General Info Date of Service: 07/25/20 - Review of Systems Systems Review Comment:: asked to see the pt to cover for Dr Brown. Pt reportedly had a bm last pm. NGT clear fluid, 200 ml - Patient Data Vitals - Most Recent: Last Vital Signs Temp 98.5 F 07/25/20 07:55 Pulse 108 H 07/25/20 07:55 Resp 24 H 07/25/20 07:55 BP 146/76 H 07/25/20 07:55 Pulse Ox 95 07/25/20 07:55 Weight - Most Recent: 57.697 kg I&O - Last 24 Hours: Intake & Output 07/24/20 07/25/20 07/25/20 22:59 06:59 14:59 Intake Total 1615 1670 735 Output Total 275 485 250 Balance 1340 1185 485 Lab Results Last 24 Hrs: Laboratory Results - last 24 hr 07/24/20 07/24/20 07/24/20 Range/Units 10:30 10:30 10:30 WBC 22.6 H (3.0-10.3) x10-3/uL RBC 7.18 H (3.60-5.20) x10(6)uL Hgb 16.7 H (11.4-15.5) g/dL Hct 52.0 H (34.2-48.2) % MCV 72.5 L (76.7-100.5) fL MCH 23.3 L (23.9-33.9) pg MCHC 32.1 (31.9-34.8) g/dL RDW 18.7 H (12.3-16.5) % Plt Count 507 H (151-488) x10(3)uL MPV 8.1 (7.1-12.4) fL Neut % (Auto) (30.8-76.2) % Lymph % (Auto) (18.4-52.1) % Haines % (Auto) (4.4-15.7) % Eos % (Auto) (0.6-8.1) % Baso % (Auto) (0.2-1.5) % Neut # (Auto) (1.5-6.3) x10-3/uL Lymph # (Auto) (1.0-4.4) x10-3/uL Haines # (Auto) (0.3-1.0) x10-3/uL Eos # (Auto) (0.0-0.8) x10-3/uL Baso # (Auto) (0.0-0.1) x10-3/uL Add Manual Diff Yes Neutrophils % (Manual) 73 (46-82) % Band Neutrophils % 3 (0-6) % Lymphocytes % (Manual) 20 (13-37) % Monocytes % (Manual) 4 (4-12) % Sodium 141 (135-145) mmol/L Potassium 2.9 L (3.5-5.3) mmol/L Chloride 95 L D (100-110) mmol/L Carbon Dioxide 27 (21-32) mmol/L BUN 17 (7-18) mg/dL Creatinine 1.6 H (0.55-1.02) mg/dL Est Cr Clr Drug Dosing 28.21 mL/min Estimated GFR (MDRD) 33 L (>60) BUN/Creatinine Ratio 10.6 (9-20) Glucose 181 H (80-116) mg/dL Lactic Acid (0.4-2.0) mmol/L Calcium 9.8 (8.6-10.2) mg/dL Total Bilirubin 1.1 (0.1-1.3) mg/dL AST 22 (5-25) IU/L ALT 23 (12-36) U/L Alkaline Phosphatase 118 H (56-112) IU/L Total Protein 8.7 H (6.0-8.0) g/dL Albumin 4.1 (3.2-4.6) g/dL Globulin 4.6 g/dL Albumin/Globulin Ratio 0.9 Amylase 53 (25-115) U/L Lipase 200 (73-393) U/L Urine Color (YELLOW) Urine Appearance (CLEAR) Urine pH (5.0-6.5) Ur Specific [place] (1.010-1.025) Urine Protein (NEGATIVE) mg/dL Urine Glucose (UA) (NORMAL) mg/dL Urine Ketones (NEGATIVE) mg/dL Urine Occult Blood (NEGATIVE) Urine Nitrite (NEGATIVE) Urine Bilirubin (NEGATIVE) Urine Urobilinogen (NEGATIVE) mg/dL Ur Leukocyte Esterase (NEGATIVE) Urine RBC (0-5) Urine WBC (0-5) Ur Squamous Epith Cells (NS,R,O) Amorphous Sediment Urine Bacteria (NS) SARS-CoV-2 RNA (COLLETTE) (NEGATIVE) 07/24/20 07/24/20 07/24/20 Range/Units 10:30 11:03 17:10 WBC (3.0-10.3) x10-3/uL RBC (3.60-5.20) x10(6)uL Hgb (11.4-15.5) g/dL Hct (34.2-48.2) % MCV (76.7-100.5) fL MCH (23.9-33.9) pg MCHC (31.9-34.8) g/dL RDW (12.3-16.5) % Plt Count (151-488) x10(3)uL MPV (7.1-12.4) fL Neut % (Auto) (30.8-76.2) % Lymph % (Auto) (18.4-52.1) % Haines % (Auto) (4.4-15.7) % Eos % (Auto) (0.6-8.1) % Baso % (Auto) (0.2-1.5) % Neut # (Auto) (1.5-6.3) x10-3/uL Lymph # (Auto) (1.0-4.4) x10-3/uL Haines # (Auto) (0.3-1.0) x10-3/uL Eos # (Auto) (0.0-0.8) x10-3/uL Baso # (Auto) (0.0-0.1) x10-3/uL Add Manual Diff Neutrophils % (Manual) (46-82) % Band Neutrophils % (0-6) % Lymphocytes % (Manual) (13-37) % Monocytes % (Manual) (4-12) % Sodium (135-145) mmol/L Potassium (3.5-5.3) mmol/L Chloride (100-110) mmol/L Carbon Dioxide (21-32) mmol/L BUN (7-18) mg/dL Creatinine (0.55-1.02) mg/dL Est Cr Clr Drug Dosing mL/min Estimated GFR (MDRD) (>60) BUN/Creatinine Ratio (9-20) Glucose (80-116) mg/dL Lactic Acid 7.6 H* 4.1 H* (0.4-2.0) mmol/L Calcium (8.6-10.2) mg/dL Total Bilirubin (0.1-1.3) mg/dL AST (5-25) IU/L ALT (12-36) U/L Alkaline Phosphatase (56-112) IU/L Total Protein (6.0-8.0) g/dL Albumin (3.2-4.6) g/dL Globulin g/dL Albumin/Globulin Ratio Amylase (25-115) U/L Lipase (73-393) U/L Urine Color (YELLOW) Urine Appearance (CLEAR) Urine pH (5.0-6.5) Ur Specific [place] (1.010-1.025) Urine Protein (NEGATIVE) mg/dL Urine Glucose (UA) (NORMAL) mg/dL Urine Ketones (NEGATIVE) mg/dL Urine Occult Blood (NEGATIVE) Urine Nitrite (NEGATIVE) Urine Bilirubin (NEGATIVE) Urine Urobilinogen (NEGATIVE) mg/dL Ur Leukocyte Esterase (NEGATIVE) Urine RBC (0-5) Urine WBC (0-5) Ur Squamous Epith Cells (NS,R,O) Amorphous Sediment Urine Bacteria (NS) SARS-CoV-2 RNA (COLLETTE) Negative (NEGATIVE) 07/24/20 07/24/20 07/24/20 Range/Units 17:10 17:10 18:10 WBC 14.4 H (3.0-10.3) x10-3/uL RBC 6.92 H (3.60-5.20) x10(6)uL Hgb 15.3 (11.4-15.5) g/dL Hct 50.6 H (34.2-48.2) % MCV 73.1 L (76.7-100.5) fL MCH 22.2 L (23.9-33.9) pg MCHC 30.3 L (31.9-34.8) g/dL RDW 18.9 H (12.3-16.5) % Plt Count 292 (151-488) x10(3)uL MPV 8.1 (7.1-12.4) fL Neut % (Auto) 67.7 (30.8-76.2) % Lymph % (Auto) 19.4 (18.4-52.1) % Haines % (Auto) 12.2 (4.4-15.7) % Eos % (Auto) 0.3 L (0.6-8.1) % Baso % (Auto) 0.4 (0.2-1.5) % Neut # (Auto) 9.8 H (1.5-6.3) x10-3/uL Lymph # (Auto) 2.8 (1.0-4.4) x10-3/uL Haines # (Auto) 1.8 H (0.3-1.0) x10-3/uL Eos # (Auto) 0.0 (0.0-0.8) x10-3/uL Baso # (Auto) 0.1 (0.0-0.1) x10-3/uL Add Manual Diff Neutrophils % (Manual) (46-82) % Band Neutrophils % (0-6) % Lymphocytes % (Manual) (13-37) % Monocytes % (Manual) (4-12) % Sodium 141 (135-145) mmol/L Potassium 3.2 L (3.5-5.3) mmol/L Chloride 102 D (100-110) mmol/L Carbon Dioxide 23 (21-32) mmol/L BUN 18 (7-18) mg/dL Creatinine 1.2 H (0.55-1.02) mg/dL Est Cr Clr Drug Dosing 41.24 mL/min Estimated GFR (MDRD) 46 L (>60) BUN/Creatinine Ratio 15.0 (9-20) Glucose 103 (80-116) mg/dL Lactic Acid (0.4-2.0) mmol/L Calcium 7.9 L (8.6-10.2) mg/dL Total Bilirubin (0.1-1.3) mg/dL AST (5-25) IU/L ALT (12-36) U/L Alkaline Phosphatase (56-112) IU/L Total Protein (6.0-8.0) g/dL Albumin (3.2-4.6) g/dL Globulin g/dL Albumin/Globulin Ratio Amylase (25-115) U/L Lipase (73-393) U/L Urine Color Yellow (YELLOW) Urine Appearance Clear (CLEAR) Urine pH 5.0 (5.0-6.5) Ur Specific [place] 1.015 (1.010-1.025) Urine Protein Trace (NEGATIVE) mg/dL Urine Glucose (UA) Normal (NORMAL) mg/dL Urine Ketones 15 H (NEGATIVE) mg/dL Urine Occult Blood Negative (NEGATIVE) Urine Nitrite Negative (NEGATIVE) Urine Bilirubin Small H (NEGATIVE) Urine Urobilinogen Normal (NEGATIVE) mg/dL Ur Leukocyte Esterase Negative (NEGATIVE) Urine RBC 0-5 (0-5) Urine WBC 0-5 (0-5) Ur Squamous Epith Cells Occasional (NS,R,O) Amorphous Sediment Moderate Urine Bacteria Few H (NS) SARS-CoV-2 RNA (COLLETTE) (NEGATIVE) 07/24/20 07/24/20 07/24/20 Range/Units 21:05 21:05 21:05 WBC 8.7 (3.0-10.3) x10-3/uL RBC 6.24 H (3.60-5.20) x10(6)uL Hgb 14.2 (11.4-15.5) g/dL Hct 45.5 (34.2-48.2) % MCV 72.9 L (76.7-100.5) fL MCH 22.8 L (23.9-33.9) pg MCHC 31.2 L (31.9-34.8) g/dL RDW 18.8 H (12.3-16.5) % Plt Count 258 (151-488) x10(3)uL MPV 7.7 (7.1-12.4) fL Neut % (Auto) 64.6 (30.8-76.2) % Lymph % (Auto) 23.6 (18.4-52.1) % Haines % (Auto) 11.1 (4.4-15.7) % Eos % (Auto) 0.3 L (0.6-8.1) % Baso % (Auto) 0.4 (0.2-1.5) % Neut # (Auto) 5.6 (1.5-6.3) x10-3/uL Lymph # (Auto) 2.0 (1.0-4.4) x10-3/uL Haines # (Auto) 1.0 (0.3-1.0) x10-3/uL Eos # (Auto) 0.0 (0.0-0.8) x10-3/uL Baso # (Auto) 0.0 (0.0-0.1) x10-3/uL Add Manual Diff Neutrophils % (Manual) (46-82) % Band Neutrophils % (0-6) % Lymphocytes % (Manual) (13-37) % Monocytes % (Manual) (4-12) % Sodium 141 (135-145) mmol/L Potassium 4.3 D (3.5-5.3) mmol/L Chloride 105 (100-110) mmol/L Carbon Dioxide 25 (21-32) mmol/L BUN 19 H (7-18) mg/dL Creatinine 1.1 H (0.55-1.02) mg/dL Est Cr Clr Drug Dosing 44.99 mL/min Estimated GFR (MDRD) 51 L (>60) BUN/Creatinine Ratio 17.3 (9-20) Glucose 85 (80-116) mg/dL Lactic Acid 1.9 (0.4-2.0) mmol/L Calcium 7.4 L (8.6-10.2) mg/dL Total Bilirubin (0.1-1.3) mg/dL AST (5-25) IU/L ALT (12-36) U/L Alkaline Phosphatase (56-112) IU/L Total Protein (6.0-8.0) g/dL Albumin (3.2-4.6) g/dL Globulin g/dL Albumin/Globulin Ratio Amylase (25-115) U/L Lipase (73-393) U/L Urine Color (YELLOW) Urine Appearance (CLEAR) Urine pH (5.0-6.5) Ur Specific [place] (1.010-1.025) Urine Protein (NEGATIVE) mg/dL Urine Glucose (UA) (NORMAL) mg/dL Urine Ketones (NEGATIVE) mg/dL Urine Occult Blood (NEGATIVE) Urine Nitrite (NEGATIVE) Urine Bilirubin (NEGATIVE) Urine Urobilinogen (NEGATIVE) mg/dL Ur Leukocyte Esterase (NEGATIVE) Urine RBC (0-5) Urine WBC (0-5) Ur Squamous Epith Cells (NS,R,O) Amorphous Sediment Urine Bacteria (NS) SARS-CoV-2 RNA (COLLETTE) (NEGATIVE) 07/25/20 07/25/20 Range/Units 08:23 08:23 WBC 8.0 (3.0-10.3) x10-3/uL RBC 5.94 H (3.60-5.20) x10(6)uL Hgb 13.6 (11.4-15.5) g/dL Hct 43.1 (34.2-48.2) % MCV 72.5 L (76.7-100.5) fL MCH 23.0 L (23.9-33.9) pg MCHC 31.7 L (31.9-34.8) g/dL RDW 19.4 H (12.3-16.5) % Plt Count 211 (151-488) x10(3)uL MPV 7.7 (7.1-12.4) fL Neut % (Auto) 69.7 (30.8-76.2) % Lymph % (Auto) 20.2 (18.4-52.1) % Haines % (Auto) 9.2 (4.4-15.7) % Eos % (Auto) 0.4 L (0.6-8.1) % Baso % (Auto) 0.5 (0.2-1.5) % Neut # (Auto) 5.6 (1.5-6.3) x10-3/uL Lymph # (Auto) 1.6 (1.0-4.4) x10-3/uL Haines # (Auto) 0.7 (0.3-1.0) x10-3/uL Eos # (Auto) 0.0 (0.0-0.8) x10-3/uL Baso # (Auto) 0.0 (0.0-0.1) x10-3/uL Add Manual Diff Neutrophils % (Manual) (46-82) % Band Neutrophils % (0-6) % Lymphocytes % (Manual) (13-37) % Monocytes % (Manual) (4-12) % Sodium 140 (135-145) mmol/L Potassium 3.5 (3.5-5.3) mmol/L Chloride 102 (100-110) mmol/L Carbon Dioxide 25 (21-32) mmol/L BUN 16 (7-18) mg/dL Creatinine 0.7 (0.55-1.02) mg/dL Est Cr Clr Drug Dosing 70.70 mL/min Estimated GFR (MDRD) > 60 (>60) BUN/Creatinine Ratio 22.9 H (9-20) Glucose 60 L (80-116) mg/dL Lactic Acid (0.4-2.0) mmol/L Calcium 7.8 L (8.6-10.2) mg/dL Total Bilirubin (0.1-1.3) mg/dL AST (5-25) IU/L ALT (12-36) U/L Alkaline Phosphatase (56-112) IU/L Total Protein (6.0-8.0) g/dL Albumin (3.2-4.6) g/dL Globulin g/dL Albumin/Globulin Ratio Amylase (25-115) U/L Lipase (73-393) U/L Urine Color (YELLOW) Urine Appearance (CLEAR) Urine pH (5.0-6.5) Ur Specific [place] (1.010-1.025) Urine Protein (NEGATIVE) mg/dL Urine Glucose (UA) (NORMAL) mg/dL Urine Ketones (NEGATIVE) mg/dL Urine Occult Blood (NEGATIVE) Urine Nitrite (NEGATIVE) Urine Bilirubin (NEGATIVE) Urine Urobilinogen (NEGATIVE) mg/dL Ur Leukocyte Esterase (NEGATIVE) Urine RBC (0-5) Urine WBC (0-5) Ur Squamous Epith Cells (NS,R,O) Amorphous Sediment Urine Bacteria (NS) SARS-CoV-2 RNA (COLLETTE) (NEGATIVE) Pascual Results Last 24 Hrs: Microbiology 07/24/20 16:52 Anaerobic Blood Culture - Final Blood - Venous 07/24/20 16:55 Anaerobic Blood Culture - Final Blood Med Orders - Current: Current Medications Acetaminophen (Tylenol) 650 mg RECTAL Q4H PRN PRN Reason: Mild pain/fever Dexamethasone (Decadron) 1 mg IVPUSH DAILY [facility] Last Admin: 07/25/20 09:02 Dose: 1 mg Documented by: Enoxaparin Sodium (Lovenox) 40 mg SUBCUT DAILY@1800 SOBEIDA Piperacillin Sod/Tazobactam (Sod 3.375 gm/ Sodium Chloride) 50 mls @ 100 mls/hr IV Q6H [facility] Last Admin: 07/25/20 10:27 Dose: 100 mls/hr Documented by: Dextrose/Lactated Ringer's (Dextrose 5%-Lactated Ringers) 1,000 mls @ 125 mls/hr IV ASDIRECTED [facility] Last Admin: 07/25/20 09:05 Dose: 125 mls/hr Documented by: Ketorolac Tromethamine (Toradol) 30 mg IVPUSH Q6H PRN PRN Reason: PAIN/FEVER Ondansetron HCl (Zofran) 4 mg IV Q4H PRN PRN Reason: Nausea/Vomiting Sodium Chloride (Saline Flush) 10 ml FLUSH ASDIRECTED PRN PRN Reason: flush for iv meds Last Admin: 07/25/20 04:45 Dose: 10 ml Documented by: Discontinued Medications Enoxaparin Sodium (Lovenox) 30 mg SUBCUT Q24H [facility] Last Admin: 07/24/20 17:52 Dose: 30 mg Documented by: Hydromorphone HCl (Dilaudid) 1 mg IVPUSH ONETIME ONE Stop: 07/24/20 10:44 Last Admin: 07/24/20 10:55 Dose: 1 mg Documented by: Hydromorphone HCl (Dilaudid) 1 mg IVPUSH ONETIME ONE Stop: 07/24/20 12:22 Last Admin: 07/24/20 12:24 Dose: 1 mg Documented by: Hydromorphone HCl (Dilaudid) 1 mg IVPUSH Q2H PRN PRN Reason: Pain (severe 7-10) Sodium Chloride (Normal Saline) 1,000 mls @ 999 mls/hr IV .BOLUS ONE Stop: 07/24/20 11:44 Last Admin: 07/24/20 10:30 Dose: 999 mls/hr Documented by: Sodium Chloride (Normal Saline) 1,000 mls @ 999 drops/hr IV .BOLUS ONE Stop: 07/25/20 01:50 Last Admin: 07/24/20 12:22 Dose: Not Given Documented by: Sodium Chloride (Normal Saline) 1,000 mls @ 999 mls/hr IV ASDIRECTED [facility] Last Admin: 07/24/20 11:47 Dose: 999 mls/hr Documented by: Piperacillin Sod/Tazobactam (Sod 3.375 gm/ Sodium Chloride) 50 mls @ 100 mls/hr IV Q6H [facility] Last Admin: 07/25/20 03:56 Dose: Not Given Documented by: Potassium Chloride 10 meq/ (Premix) 100 mls @ 100 mls/hr IV ONETIME ONE Stop: 07/24/20 16:11 Last Admin: 07/24/20 16:50 Dose: 100 mls/hr Documented by: Lactated Ringer's (Ringers, Lactated) 1,000 mls @ 150 mls/hr IV ASDIRECTED [facility] Potassium Chloride 20 meq/ (Lactated Ringer's) 1,010 mls @ 150 mls/hr IV ASDIRECTED [facility] Lactated Ringer's (Ringers, Lactated) 1,000 mls @ 125 mls/hr IV ASDIRECTED [facility] Last Admin: 07/25/20 06:02 Dose: 250 mls/hr Documented by: Potassium Chloride (Kcl 20 Meq In Water 100 Ml) 100 mls @ 50 mls/hr IV Q2H [facility] Stop: 07/24/20 20:59 Last Admin: 07/24/20 20:07 Dose: 50 mls/hr Documented by: Ketorolac Tromethamine (Toradol) 30 mg IVPUSH Q6H PRN PRN Reason: Pain (moderate 4-6) Stop: 07/29/20 16:36 Ketorolac Tromethamine (Toradol) 15 mg IVPUSH Q6H PRN PRN Reason: Pain/Fever Last Admin: 07/25/20 08:28 Dose: 15 mg Documented by: Metoclopramide HCl (Reglan) 10 mg IVPUSH ONETIME ONE Stop: 07/24/20 11:49 Last Admin: 07/24/20 11:54 Dose: 10 mg Documented by: Morphine Sulfate (Morphine) 2 mg IVPUSH Q4H PRN PRN Reason: Pain Last Admin: 07/24/20 23:00 Dose: 2 mg Documented by: Morphine Sulfate (Morphine) 2 mg IVPUSH Q2H PRN PRN Reason: Pain Last Admin: 07/25/20 04:57 Dose: 2 mg Documented by: Ondansetron HCl (Zofran) 4 mg IVPUSH ONETIME ONE Stop: 07/24/20 10:44 Last Admin: 07/24/20 10:50 Dose: 4 mg Documented by: - Exam General: No Acute Distress Lungs: Clear to Auscultation, Normal Respiratory Effort Cardiovascular: Regular Rate, Regular Rhythm GI/Abdominal Exam: Normal Bowel Sounds, Soft, Non-Tender, Other (kub contrast in to the colon and is now on the left side. ) Sepsis Event Note - Evaluation Sepsis Screening Result: Sepsis Risk - Focused Exam Vital Signs: Vital Signs Temp Pulse Pulse Resp BP Pulse Ox 07/25/20 07:55 98.5 F 108 H 24 H 146/76 H 95 07/25/20 04:00 98.4 F 116 H 20 131/69 93 L 07/25/20 01:00 119 H 24 H 131/75 92 L 07/24/20 23:00 98.8 F 130 H 24 H 128/75 94 L - Problem List & Annotations (1) Bowel obstruction SNOMED Code(s): 43795483 Code(s): K56.609 - UNSP INTESTNL OBST, UNSP TO PARTIAL VERSUS COMPLETE OBST Status: Acute Current Visit: Yes Annotation/Comment:: with contrast in colon the obstuction appears to be resolving - Problem List Review Problem List Initiated/Reviewed/Updated: Yes - My Orders Last 24 Hours: Active Orders 24 hr Category Date Time Status Patient Status [ADT] Routine ADT 07/24/20 14:47 Active Mir Catheter Insertion [Insert Urinary Catheter] [OM. Care 07/24/20 17:30 Ordered PC] Q24H Intake and Output [RC] 06,10,14,18,22 Care 07/24/20 22:00 Active Notify Provider Consults [RC] ASDIRECTED Care 07/24/20 16:12 Active Oxygen Therapy [RC] PRN Care 07/24/20 16:06 Active Urinary Catheter Assessment [RC] QSHIFT Care 07/24/20 17:18 Active VTE/DVT Education [RC] Per Unit Routine Care 07/24/20 16:06 Active Vital Signs [RC] 08,12,16,20,00,04 Care 07/24/20 14:47 Active Consult to Physician [CONS] Routine Cons 07/24/20 16:06 Ordered Nothing per Oral Now Diet [DIET] Diet 07/24/20 Dinner Active Abdomen 1V Flat [CR] Stat Exams 07/24/20 15:02 Taken Abdomen Pelvis wo Cont [CT] Stat Exams 07/24/20 11:39 Taken BASIC METABOLIC PANEL,BMP [CHEM] Routine Lab 07/26/20 06:00 Ordered CBC WITH AUTO DIFF [HEME] Routine Lab 07/26/20 06:00 Ordered CULTURE BLOOD [BC] Routine Lab 07/24/20 16:55 Results CULTURE BLOOD [BC] Urgent Lab 07/24/20 16:52 Results Acetaminophen [Tylenol] Med 07/24/20 16:18 Active 650 mg RECTAL Q4H PRN Dextrose 5%-Lactated Ringers 1,000 ml Med 07/25/20 08:45 Active IV ASDIRECTED Enoxaparin [Lovenox] Med 07/25/20 18:00 Active 40 mg SUBCUT DAILY@1800 Ketorolac [Toradol] Med 07/25/20 14:30 Active 30 mg IVPUSH Q6H PRN Ondansetron [Zofran] Med 07/24/20 16:06 Active 4 mg IV Q4H PRN Piperacillin/Tazobactam [Piperacil-Tazobact] 3.375 gm Med 07/25/20 04:00 Active Sodium Chloride 0.9% [Normal Saline] 50 ml IV Q6H Sodium Chloride 0.9% [Saline Flush] Med 07/24/20 22:27 Active 10 ml FLUSH ASDIRECTED PRN dexAMETHasone [Decadron] Med 07/25/20 09:00 Active 1 mg IVPUSH DAILY Nasogastric Orogastric Tube Insertion [OM.PC] Routine Oth 07/24/20 14:42 Ordered Sequential Compression Device [OM.PC] Per Unit Routine Oth 07/24/20 16:06 Ordered Resuscitation Status Routine Resus Stat 07/24/20 14:47 Ordered Medication Orders Acetaminophen (Tylenol) 650 mg RECTAL Q4H PRN PRN Reason: Mild pain/fever Dexamethasone (Decadron) 1 mg IVPUSH DAILY [facility] Last Admin: 07/25/20 09:02 Dose: 1 mg Documented by: RANGEL Enoxaparin Sodium (Lovenox) 40 mg SUBCUT DAILY@1800 SO[facility] Piperacillin Sod/Tazobactam (Sod 3.375 gm/ Sodium Chloride) 50 mls @ 100 mls/hr IV Q6H [facility] Last Admin: 07/25/20 10:27 Dose: 100 mls/hr Documented by: Admin: 07/25/20 03:55 Dose: 100 mls/hr Documented by: URIEL Dextrose/Lactated Ringer's (Dextrose 5%-Lactated Ringers) 1,000 mls @ 125 mls/hr IV ASDIRECTED [facility] Last Admin: 07/25/20 09:05 Dose: 125 mls/hr Documented by: RANGEL Ketorolac Tromethamine (Toradol) 30 mg IVPUSH Q6H PRN PRN Reason: PAIN/FEVER Ondansetron HCl (Zofran) 4 mg IV Q4H PRN PRN Reason: Nausea/Vomiting Sodium Chloride (Saline Flush) 10 ml FLUSH ASDIRECTED PRN PRN Reason: flush for iv meds Last Admin: 07/25/20 04:45 Dose: 10 ml Documented by: Admin: 07/25/20 04:00 Dose: 10 ml Documented by: Admin: 07/24/20 22:47 Dose: 10 ml Documented by: Admin: 07/24/20 22:00 Dose: 10 ml Documented by: URIEL - Assessment Assessment (Free Text/Narrative):: resolving obstruction. - Plan Plan (Free Text/Narrative):: consider pulling the Ngt if continues low output and if tolerates after a few hours consider starting clears.
[2020-07-25] MEDS: Ketorolac 30 MG/ML SDV IVPUSH PRN ×2 (13:50→22:02)
[2020-07-25] MEDS: Enoxaparin 40 MG/0.4 ML Syringe SUBCUT SCH (18:02)
[2020-07-25] MEDS: Ondansetron 4 MG/2 ML SDV IV PRN (21:01)
[2020-07-26] MEDS: Ketorolac 30 MG/ML SDV IVPUSH PRN ×2 (03:55→10:12)
[2020-07-26] MEDS: Piperacillin/Tazobactam 3.375 GM in Sodium Chloride 0.9% 50 ML IV SCH ×4 (03:55→21:39)
[2020-07-26] MEDS: Dextrose 5%-Lactated Ringers 1,000 ML IV SCH (04:27)
--- NOTE | 2020-07-26 10:01 | PCM.PN ---
- General Info Date of Service: 07/26/20 Subjective Update: Andie had 2 large formed bowel movements yesterday afternoon, clamped NG 3 out of 4 hours, had output of 75 ml overnight. Pain is more sore now, had ice chips last night without nausea. No fevers, 1 set of blood culture are positive. Functional Status: Reports: Pain Controlled, Urinating - Patient Data Vitals - Most Recent: Last Vital Signs Temp 98 F 07/26/20 00:00 Pulse 80 07/26/20 03:05 Resp 16 07/26/20 03:05 BP 127/75 07/26/20 03:05 Pulse Ox 98 07/26/20 03:05 Weight - Most Recent: 127 lb 3.2 oz I&O - Last 24 Hours: Intake & Output 07/25/20 07/26/20 07/26/20 22:59 06:59 14:59 Intake Total 1000 1238 Output Total 600 500 Balance 400 738 Lab Results Last 24 Hours: Laboratory Results - last 24 hr 07/26/20 07/26/20 Range/Units 06:15 06:15 WBC 6.3 (3.0-10.3) x10-3/uL RBC 4.75 (3.60-5.20) x10(6)uL Hgb 10.7 L (11.4-15.5) g/dL Hct 34.5 (34.2-48.2) % MCV 72.7 L (76.7-100.5) fL MCH 22.6 L (23.9-33.9) pg MCHC 31.1 L (31.9-34.8) g/dL RDW 18.8 H (12.3-16.5) % Plt Count 155 (151-488) x10(3)uL MPV 7.7 (7.1-12.4) fL Neut % (Auto) 77.6 H (30.8-76.2) % Lymph % (Auto) 14.0 L (18.4-52.1) % [place] % (Auto) 7.8 (4.4-15.7) % Eos % (Auto) 0.4 L (0.6-8.1) % Baso % (Auto) 0.2 (0.2-1.5) % Neut # (Auto) 4.9 (1.5-6.3) x10-3/uL Lymph # (Auto) 0.9 L (1.0-4.4) x10-3/uL [place] # (Auto) 0.5 (0.3-1.0) x10-3/uL Eos # (Auto) 0.0 (0.0-0.8) x10-3/uL Baso # (Auto) 0.0 (0.0-0.1) x10-3/uL Sodium 142 (135-145) mmol/L Potassium 3.6 (3.5-5.3) mmol/L Chloride 106 (100-110) mmol/L Carbon Dioxide 28 (21-32) mmol/L BUN 10 (7-18) mg/dL Creatinine 0.6 (0.55-1.02) mg/dL Est Cr Clr Drug Dosing 82.48 mL/min Estimated GFR (MDRD) > 60 (>60) BUN/Creatinine Ratio 16.7 (9-20) Glucose 136 H (80-116) mg/dL Calcium 8.2 L (8.6-10.2) mg/dL Pascual Results Last 24 Hours: Microbiology 07/24/20 16:52 Aerobic Blood Culture - Preliminary Blood - Venous Unidentified Organism Anaerobic Blood Culture - Final 07/24/20 16:55 Aerobic Blood Culture - Preliminary Blood NO GROWTH AFTER 1 DAY Anaerobic Blood Culture - Final Med Orders - Current: Current Medications Acetaminophen (Tylenol) 650 mg PO Q4H PRN PRN Reason: Pain/Fever Enoxaparin Sodium (Lovenox) 40 mg SUBCUT DAILY@1800 [facility] Last Admin: 07/25/20 18:02 Dose: 40 mg Documented by: Piperacillin Sod/Tazobactam (Sod 3.375 gm/ Sodium Chloride) 50 mls @ 100 mls/hr IV Q6H [facility] Last Admin: 07/26/20 03:55 Dose: 100 mls/hr Documented by: Ketorolac Tromethamine (Toradol) 30 mg IVPUSH Q6H PRN PRN Reason: PAIN/FEVER Last Admin: 07/26/20 03:55 Dose: 30 mg Documented by: (Hydroxychloroquine [Plaquenil] 200 Mg) *Ptom 200 mg PO BID [facility] (Naltrexone [ Naltrexone] 4.5 Mg Tab) 4.5 mg PO BEDTIME [facility] Ondansetron HCl (Zofran) 4 mg IV Q4H PRN PRN Reason: Nausea/Vomiting Last Admin: 07/25/20 21:01 Dose: 4 mg Documented by: Prednisone (Prednisone) 5 mg PO BEDTIME [facility] Prednisone (Prednisone) 2.5 mg PO DAILY [facility] Sodium Chloride (Saline Flush) 10 ml FLUSH ASDIRECTED PRN PRN Reason: flush for iv meds Last Admin: 07/25/20 04:45 Dose: 10 ml Documented by: Discontinued Medications Acetaminophen (Tylenol) 650 mg RECTAL Q4H PRN PRN Reason: Mild pain/fever Dexamethasone (Decadron) 1 mg IVPUSH DAILY [facility] Last Admin: 07/25/20 09:02 Dose: 1 mg Documented by: Enoxaparin Sodium (Lovenox) 30 mg SUBCUT Q24H [facility] Last Admin: 07/24/20 17:52 Dose: 30 mg Documented by: Hydromorphone HCl (Dilaudid) 1 mg IVPUSH ONETIME ONE Stop: 07/24/20 10:44 Last Admin: 07/24/20 10:55 Dose: 1 mg Documented by: Hydromorphone HCl (Dilaudid) 1 mg IVPUSH ONETIME ONE Stop: 07/24/20 12:22 Last Admin: 07/24/20 12:24 Dose: 1 mg Documented by: Hydromorphone HCl (Dilaudid) 1 mg IVPUSH Q2H PRN PRN Reason: Pain (severe 7-10) Sodium Chloride (Normal Saline) 1,000 mls @ 999 mls/hr IV .BOLUS ONE Stop: 07/24/20 11:44 Last Admin: 07/24/20 10:30 Dose: 999 mls/hr Documented by: Sodium Chloride (Normal Saline) 1,000 mls @ 999 drops/hr IV .BOLUS ONE Stop: 07/25/20 01:50 Last Admin: 07/24/20 12:22 Dose: Not Given Documented by: Sodium Chloride (Normal Saline) 1,000 mls @ 999 mls/hr IV ASDIRECTED [facility] Last Admin: 07/24/20 11:47 Dose: 999 mls/hr Documented by: Piperacillin Sod/Tazobactam (Sod 3.375 gm/ Sodium Chloride) 50 mls @ 100 mls/hr IV Q6H [facility] Last Admin: 07/25/20 03:56 Dose: Not Given Documented by: Potassium Chloride 10 meq/ (Premix) 100 mls @ 100 mls/hr IV ONETIME ONE Stop: 07/24/20 16:11 Last Admin: 07/24/20 16:50 Dose: 100 mls/hr Documented by: Lactated Ringer's (Ringers, Lactated) 1,000 mls @ 150 mls/hr IV ASDIRECTED [facility] Potassium Chloride 20 meq/ (Lactated Ringer's) 1,010 mls @ 150 mls/hr IV ASDIRECTED [facility] Lactated Ringer's (Ringers, Lactated) 1,000 mls @ 125 mls/hr IV ASDIRECTED [facility] Last Admin: 07/25/20 06:02 Dose: 250 mls/hr Documented by: Potassium Chloride (Kcl 20 Meq In Water 100 Ml) 100 mls @ 50 mls/hr IV Q2H [facility] Stop: 07/24/20 20:59 Last Admin: 07/24/20 20:07 Dose: 50 mls/hr Documented by: Dextrose/Lactated Ringer's (Dextrose 5%-Lactated Ringers) 1,000 mls @ 125 mls/hr IV ASDIRECTED [facility] Last Admin: 07/26/20 04:27 Dose: 125 mls/hr Documented by: Ketorolac Tromethamine (Toradol) 30 mg IVPUSH Q6H PRN PRN Reason: Pain (moderate 4-6) Stop: 07/29/20 16:36 Ketorolac Tromethamine (Toradol) 15 mg IVPUSH Q6H PRN PRN Reason: Pain/Fever Last Admin: 07/25/20 08:28 Dose: 15 mg Documented by: Metoclopramide HCl (Reglan) 10 mg IVPUSH ONETIME ONE Stop: 07/24/20 11:49 Last Admin: 07/24/20 11:54 Dose: 10 mg Documented by: Morphine Sulfate (Morphine) 2 mg IVPUSH Q4H PRN PRN Reason: Pain Last Admin: 07/24/20 23:00 Dose: 2 mg Documented by: Morphine Sulfate (Morphine) 2 mg IVPUSH Q2H PRN PRN Reason: Pain Last Admin: 07/25/20 04:57 Dose: 2 mg Documented by: Ondansetron HCl (Zofran) 4 mg IVPUSH ONETIME ONE Stop: 07/24/20 10:44 Last Admin: 07/24/20 10:50 Dose: 4 mg Documented by: - Exam General: Alert, Oriented, Cooperative, No Acute Distress Lungs: Clear to Auscultation, Normal Respiratory Effort Cardiovascular: Regular Rate, Regular Rhythm GI/Abdominal Exam: Soft, Distended (improved), Guarding, Tender, Abnormal Bowel Sounds (hyperactive). No: Rigid, Rebound Extremities: Other (edema of her hands) Sepsis Event Note - Evaluation Sepsis Screening Result: No Definite Risk - Focused Exam Vital Signs: Vital Signs Temp Pulse Resp BP Pulse Ox 07/26/20 03:05 80 16 127/75 98 07/26/20 00:00 98 F 83 16 117/82 98 - Problem List & Annotations (1) Bowel obstruction SNOMED Code(s): 36717050 Code(s): K56.609 - UNSP INTESTNL OBST, UNSP TO PARTIAL VERSUS COMPLETE OBST Status: Acute Current Visit: Yes Annotation/Comment:: Constrast in colon per KUB yesterday, had 2 large bowel movements yesterday afternoon, clamped NG, had 75 ml out, no nausea, tolerated Ice chips. Pull NG, start on clears, remove arango. Changed acetaminophen from rectal or oral form. Restart home medications. Zosyn continue, 1 set of blood cultures are positive, identification pending. (2) Dehydration SNOMED Code(s): 88693267 Code(s): E86.0 - DEHYDRATION Status: Acute Current Visit: Yes Annotation/Comment:: improving (3) Rheumatoid arthritis SNOMED Code(s): 67032270 Code(s): M06.9 - RHEUMATOID ARTHRITIS, UNSPECIFIED Status: Chronic Current Visit: Yes Annotation/Comment:: Restart her home Prednisone 2.5 mg in am, 5 mg in evening. Restart Plaquenil & Naltrexone. (4) Hypothyroid SNOMED Code(s): 85975270 Code(s): E03.9 - HYPOTHYROIDISM, UNSPECIFIED Status: Chronic Current Visit: Yes Annotation/Comment:: will bring her in medication that she takes for this. (5) Sepsis SNOMED Code(s): 07260847 Code(s): A41.9 - SEPSIS, UNSPECIFIED ORGANISM Status: Resolved Current Visit: Yes (6) Nausea & vomiting SNOMED Code(s): 09292051 Code(s): R11.2 - NAUSEA WITH VOMITING, UNSPECIFIED Status: Resolved Current Visit: Yes - Problem List Review Problem List Initiated/Reviewed/Updated: Yes - My Orders Last 24 Hours: My Active Orders 07/25/20 14:30 Ketorolac [Toradol] 30 mg IVPUSH Q6H PRN 07/25/20 15:33 Communication Order [RC] ROUTINE 07/25/20 18:00 Enoxaparin [Lovenox] 40 mg SUBCUT DAILY@1800 07/26/20 09:00 Hydroxychloroquine [Plaquenil] 200 mg PO BID predniSONE 2.5 mg PO DAILY 07/26/20 09:13 Remove Arango Catheter [Urinary Catheter Removal] [RC] PER UNIT ROUTINE 07/26/20 09:14 Acetaminophen [TylenoL] 650 mg PO Q4H PRN 07/26/20 09:15 Antiembolic Hose [OM.PC] Routine 07/26/20 21:00 Naltrexone [Naltrexone] 4.5 mg PO BEDTIME predniSONE 5 mg PO BEDTIME 07/27/20 06:00 CBC WITH AUTO DIFF [HEME] Routine 07/27/20 Breakfast Clear Liquid Diet [DIET] - Plan Plan:: 1. SBO: Zosyn 3.375 gm IV q6h, day 3, repeat CBC tomorrow. BC: 1 set positive gram positive cocci, unidentified. Pull NG, clears, discontinue arango. Tylenol 650 mg PO q4h as needed and Toradol 30 mg IV q6h as needed. 2. Dehydration: Resolved. Saline lock. 3. Diet: Clears, advance as tolerated. 4. DVT: Lovenox 40 mg SQ q24h, TEDs on BLE. Ambulate. 5. Restart home medications.
[2020-07-26] MEDS: predniSONE 5 MG Tab *PTOM PO SCH (10:04)
--- NOTE | 2020-07-26 10:08 | PCM.PN ---
- General Info Date of Service: 07/26/20 Functional Status: Reports: Pain Controlled, Ambulating, Urinating, Other (Tolerating NG out) - Review of Systems General: Reports: No Symptoms Gastrointestinal: Reports: No Symptoms, Flatus. Denies: Abdominal Pain - Patient Data Vitals - Most Recent: Last Vital Signs Temp 98 F 07/26/20 00:00 Pulse 80 07/26/20 03:05 Resp 16 07/26/20 03:05 BP 127/75 07/26/20 03:05 Pulse Ox 98 07/26/20 03:05 Weight - Most Recent: 57.697 kg I&O - Last 24 Hours: Intake & Output 07/25/20 07/26/20 07/26/20 22:59 06:59 14:59 Intake Total 1000 1238 Output Total 600 500 Balance 400 738 Lab Results Last 24 Hours: Laboratory Results - last 24 hr 07/26/20 07/26/20 Range/Units 06:15 06:15 WBC 6.3 (3.0-10.3) x10-3/uL RBC 4.75 (3.60-5.20) x10(6)uL Hgb 10.7 L (11.4-15.5) g/dL Hct 34.5 (34.2-48.2) % MCV 72.7 L (76.7-100.5) fL MCH 22.6 L (23.9-33.9) pg MCHC 31.1 L (31.9-34.8) g/dL RDW 18.8 H (12.3-16.5) % Plt Count 155 (151-488) x10(3)uL MPV 7.7 (7.1-12.4) fL Neut % (Auto) 77.6 H (30.8-76.2) % Lymph % (Auto) 14.0 L (18.4-52.1) % [place] % (Auto) 7.8 (4.4-15.7) % Eos % (Auto) 0.4 L (0.6-8.1) % Baso % (Auto) 0.2 (0.2-1.5) % Neut # (Auto) 4.9 (1.5-6.3) x10-3/uL Lymph # (Auto) 0.9 L (1.0-4.4) x10-3/uL [place] # (Auto) 0.5 (0.3-1.0) x10-3/uL Eos # (Auto) 0.0 (0.0-0.8) x10-3/uL Baso # (Auto) 0.0 (0.0-0.1) x10-3/uL Sodium 142 (135-145) mmol/L Potassium 3.6 (3.5-5.3) mmol/L Chloride 106 (100-110) mmol/L Carbon Dioxide 28 (21-32) mmol/L BUN 10 (7-18) mg/dL Creatinine 0.6 (0.55-1.02) mg/dL Est Cr Clr Drug Dosing 82.48 mL/min Estimated GFR (MDRD) > 60 (>60) BUN/Creatinine Ratio 16.7 (9-20) Glucose 136 H (80-116) mg/dL Calcium 8.2 L (8.6-10.2) mg/dL Pascual Results Last 24 Hours: Microbiology 07/24/20 16:52 Aerobic Blood Culture - Preliminary Blood - Venous Unidentified Organism Anaerobic Blood Culture - Final 07/24/20 16:55 Aerobic Blood Culture - Preliminary Blood NO GROWTH AFTER 1 DAY Anaerobic Blood Culture - Final Med Orders - Current: Current Medications Acetaminophen (Tylenol) 650 mg PO Q4H PRN PRN Reason: Pain/Fever Enoxaparin Sodium (Lovenox) 40 mg SUBCUT DAILY@1800 [facility] Last Admin: 07/25/20 18:02 Dose: 40 mg Documented by: Piperacillin Sod/Tazobactam (Sod 3.375 gm/ Sodium Chloride) 50 mls @ 100 mls/hr IV Q6H [facility] Last Admin: 07/26/20 09:59 Dose: 100 mls/hr Documented by: Ketorolac Tromethamine (Toradol) 30 mg IVPUSH Q6H PRN PRN Reason: PAIN/FEVER Last Admin: 07/26/20 03:55 Dose: 30 mg Documented by: (Hydroxychloroquine [Plaquenil] 200 Mg) *Ptom 200 mg PO BID [facility] Last Admin: 07/26/20 10:03 Dose: 200 mg Documented by: (Naltrexone [ Naltrexone] 4.5 Mg Tab) 4.5 mg PO BEDTIME [facility] Ondansetron HCl (Zofran) 4 mg IV Q4H PRN PRN Reason: Nausea/Vomiting Last Admin: 07/25/20 21:01 Dose: 4 mg Documented by: Prednisone (Prednisone) 5 mg PO BEDTIME [facility] Prednisone (Prednisone) 2.5 mg PO DAILY [facility] Last Admin: 07/26/20 10:04 Dose: 2.5 mg Documented by: Sodium Chloride (Saline Flush) 10 ml FLUSH ASDIRECTED PRN PRN Reason: flush for iv meds Last Admin: 07/25/20 04:45 Dose: 10 ml Documented by: Discontinued Medications Acetaminophen (Tylenol) 650 mg RECTAL Q4H PRN PRN Reason: Mild pain/fever Dexamethasone (Decadron) 1 mg IVPUSH DAILY [facility] Last Admin: 07/25/20 09:02 Dose: 1 mg Documented by: Enoxaparin Sodium (Lovenox) 30 mg SUBCUT Q24H [facility] Last Admin: 07/24/20 17:52 Dose: 30 mg Documented by: Hydromorphone HCl (Dilaudid) 1 mg IVPUSH ONETIME ONE Stop: 07/24/20 10:44 Last Admin: 07/24/20 10:55 Dose: 1 mg Documented by: Hydromorphone HCl (Dilaudid) 1 mg IVPUSH ONETIME ONE Stop: 07/24/20 12:22 Last Admin: 07/24/20 12:24 Dose: 1 mg Documented by: Hydromorphone HCl (Dilaudid) 1 mg IVPUSH Q2H PRN PRN Reason: Pain (severe 7-10) Sodium Chloride (Normal Saline) 1,000 mls @ 999 mls/hr IV .BOLUS ONE Stop: 07/24/20 11:44 Last Admin: 07/24/20 10:30 Dose: 999 mls/hr Documented by: Sodium Chloride (Normal Saline) 1,000 mls @ 999 drops/hr IV .BOLUS ONE Stop: 07/25/20 01:50 Last Admin: 07/24/20 12:22 Dose: Not Given Documented by: Sodium Chloride (Normal Saline) 1,000 mls @ 999 mls/hr IV ASDIRECTED [facility] Last Admin: 07/24/20 11:47 Dose: 999 mls/hr Documented by: Piperacillin Sod/Tazobactam (Sod 3.375 gm/ Sodium Chloride) 50 mls @ 100 mls/hr IV Q6H [facility] Last Admin: 07/25/20 03:56 Dose: Not Given Documented by: Potassium Chloride 10 meq/ (Premix) 100 mls @ 100 mls/hr IV ONETIME ONE Stop: 07/24/20 16:11 Last Admin: 07/24/20 16:50 Dose: 100 mls/hr Documented by: Lactated Ringer's (Ringers, Lactated) 1,000 mls @ 150 mls/hr IV ASDIRECTED [facility] Potassium Chloride 20 meq/ (Lactated Ringer's) 1,010 mls @ 150 mls/hr IV ASDIRECTED [facility] Lactated Ringer's (Ringers, Lactated) 1,000 mls @ 125 mls/hr IV ASDIRECTED [facility] Last Admin: 07/25/20 06:02 Dose: 250 mls/hr Documented by: Potassium Chloride (Kcl 20 Meq In Water 100 Ml) 100 mls @ 50 mls/hr IV Q2H [facility] Stop: 07/24/20 20:59 Last Admin: 07/24/20 20:07 Dose: 50 mls/hr Documented by: Dextrose/Lactated Ringer's (Dextrose 5%-Lactated Ringers) 1,000 mls @ 125 mls/hr IV ASDIRECTED [facility] Last Admin: 07/26/20 04:27 Dose: 125 mls/hr Documented by: Ketorolac Tromethamine (Toradol) 30 mg IVPUSH Q6H PRN PRN Reason: Pain (moderate 4-6) Stop: 07/29/20 16:36 Ketorolac Tromethamine (Toradol) 15 mg IVPUSH Q6H PRN PRN Reason: Pain/Fever Last Admin: 07/25/20 08:28 Dose: 15 mg Documented by: Metoclopramide HCl (Reglan) 10 mg IVPUSH ONETIME ONE Stop: 07/24/20 11:49 Last Admin: 07/24/20 11:54 Dose: 10 mg Documented by: Morphine Sulfate (Morphine) 2 mg IVPUSH Q4H PRN PRN Reason: Pain Last Admin: 07/24/20 23:00 Dose: 2 mg Documented by: Morphine Sulfate (Morphine) 2 mg IVPUSH Q2H PRN PRN Reason: Pain Last Admin: 07/25/20 04:57 Dose: 2 mg Documented by: Ondansetron HCl (Zofran) 4 mg IVPUSH ONETIME ONE Stop: 07/24/20 10:44 Last Admin: 07/24/20 10:50 Dose: 4 mg Documented by: - Exam General: Alert, Oriented Lungs: Clear to Auscultation, Normal Respiratory Effort GI/Abdominal Exam: Soft, Non-Tender, Distended (mild) Sepsis Event Note - Evaluation Sepsis Screening Result: No Definite Risk - Focused Exam Vital Signs: Vital Signs Temp Pulse Resp BP Pulse Ox 07/26/20 03:05 80 16 127/75 98 07/26/20 00:00 98 F 83 16 117/82 98 - Problem List Review Problem List Initiated/Reviewed/Updated: Yes - Assessment Assessment:: SBO resolving - Plan Plan:: 1. SBO: Zosyn 3.375 gm IV q6h, day 2, repeat CBC, BMP, tomorrow. Lactic corrected. BC x 2 pending. NG with low intermittent suction. Dr Rosas covering for Dr Brown. Tylenol 650 mg [place] q4h as needed and Toradol 30 mg IV q6h as needed. If rectal Tylenol is not staying in place long enough to work, Ofirmev can be used for 24 hours. 2. Dehydration: LR at 125 ml/hr, Mir to monitor output. 3. Hypokalemia: resolved. Continue to monitor. 4. Diet: NPO, NG in place. 5. DVT: Lovenox 40 mg SQ q24h, SCDs on BLE. Will cont to follow, no surgery at this time
[2020-07-26] MEDS: Ondansetron 4 MG/2 ML SDV IV PRN (12:58)
[2020-07-26] MEDS: Enoxaparin 40 MG/0.4 ML Syringe SUBCUT SCH (17:38)
[2020-07-26] MEDS: NALTREXONE 4.5 MG PO SCH (21:36)
[2020-07-26] MEDS: predniSONE 5 MG Tab PO SCH (21:37)
[2020-07-27] MEDS ORDERED: Carboxymethylcellulose Sodium 1% Ophth Gel 0.4 ML UD Box of 30 EYEBOTH PRN (00:28)
[2020-07-27] MEDS ORDERED: Carboxymethylcellulose Sodium 0.5% Ophth Soln 15 ML Bottle EYEBOTH PRN (01:03)
[2020-07-27] MEDS: Piperacillin/Tazobactam 3.375 GM in Sodium Chloride 0.9% 50 ML IV SCH (03:40)
[2020-07-27] MEDS: Amoxicillin/Clavulanate K 875-125 MG Tab PO SCH ×2 (08:59→19:00)
[2020-07-27] MEDS: predniSONE 5 MG Tab *PTOM PO SCH (09:00)
[2020-07-27] MEDS: Saccharomyces Boulardii (Probiotic) 250 MG Cap PO SCH ×2 (09:23→21:16)
[2020-07-27] MEDS: Ondansetron 4 MG Tab.DIS PO PRN ×3 (12:40→22:47)
[2020-07-27] MEDS ORDERED: hydrOXYzine HCl 50 MG/ML SDV IM PRN (13:45)
[2020-07-27] MEDS ORDERED: Metoclopramide 5 MG Tab PO PRN (13:46)
[2020-07-27] MEDS: Metoclopramide 10 MG/2 ML SDV IM PRN (14:45)
--- NOTE | 2020-07-27 18:34 | PCM.PN ---
- General Info Date of Service: 07/27/20 Subjective Update: Andie tolerated soft diet last night, will try Regular diet here this morning. No nausea, vomiting since NG pulled. Drinking fine. Was up walking in the halls. Had some diarrhea but not passing gas very much. IV removed and switched to Augmentin to see if she tolerates today. - Patient Data Vitals - Most Recent: Last Vital Signs Temp 97.8 F 07/27/20 16:00 Pulse 73 07/27/20 16:00 Resp 16 07/27/20 16:00 BP 121/54 L 07/27/20 16:00 Pulse Ox 93 L 07/27/20 16:00 Weight - Most Recent: 127 lb 3.2 oz I&O - Last 24 Hours: Intake & Output 07/27/20 07/27/20 07/27/20 06:59 14:59 22:59 Intake Total 410 1920 240 Output Total 1485 480 Balance 410 435 -240 Lab Results Last 24 Hours: Laboratory Results - last 24 hr 07/27/20 Range/Units 07:10 WBC 4.5 (3.0-10.3) x10-3/uL RBC 4.21 (3.60-5.20) x10(6)uL Hgb 9.4 L (11.4-15.5) g/dL Hct 30.5 L (34.2-48.2) % MCV 72.4 L (76.7-100.5) fL MCH 22.5 L (23.9-33.9) pg MCHC 31.0 L (31.9-34.8) g/dL RDW 18.7 H (12.3-16.5) % Plt Count 168 (151-488) x10(3)uL MPV 7.7 (7.1-12.4) fL Neut % (Auto) 74.0 (30.8-76.2) % Lymph % (Auto) 19.3 (18.4-52.1) % [place] % (Auto) 6.0 (4.4-15.7) % Eos % (Auto) 0.5 L (0.6-8.1) % Baso % (Auto) 0.2 (0.2-1.5) % Neut # (Auto) 3.3 (1.5-6.3) x10-3/uL Lymph # (Auto) 0.9 L (1.0-4.4) x10-3/uL [place] # (Auto) 0.3 (0.3-1.0) x10-3/uL Eos # (Auto) 0.0 (0.0-0.8) x10-3/uL Baso # (Auto) 0.0 (0.0-0.1) x10-3/uL [place] Results Last 24 Hours: Microbiology 07/24/20 16:52 Aerobic Blood Culture - Final Blood - Venous Staphylococcus Epidermidis Anaerobic Blood Culture - Final 07/24/20 16:55 Aerobic Blood Culture - Preliminary Blood NO GROWTH AFTER 3 DAYS Anaerobic Blood Culture - Final Med Orders - Current: Current Medications Acetaminophen (Tylenol) 650 mg PO Q4H PRN PRN Reason: Pain/Fever Amoxicillin/Clavulanate Potassium (Augmentin 875 Mg/125 Mg) 1 tab PO Q12H [facility] Stop: 08/03/20 07:46 Last Admin: 07/27/20 08:59 Dose: 1 tab Documented by: Artificial Tears (Refresh Tears 0.5%) 0 ml EYEBOTH ASDIRECTED PRN PRN Reason: Dry Eyes Last Admin: 07/27/20 01:33 Dose: 1 drop Documented by: Enoxaparin Sodium (Lovenox) 40 mg SUBCUT DAILY@1800 [facility] Last Admin: 07/26/20 17:38 Dose: 40 mg Documented by: Ketorolac Tromethamine (Toradol) 30 mg IM Q6H PRN PRN Reason: PAIN/FEVER Stop: 07/30/20 23:59 Metoclopramide HCl (Reglan) 5 mg IM Q6H PRN PRN Reason: NAUSEA/VOMITING Last Admin: 07/27/20 14:45 Dose: 5 mg Documented by: (Hydroxychloroquine [Plaquenil] 200 Mg) *Ptom 200 mg PO BID [facility] Last Admin: 07/27/20 09:00 Dose: 200 mg Documented by: (Naltrexone [ Naltrexone] 4.5 Mg Tab) 4.5 mg PO BEDTIME [facility] Last Admin: 07/26/20 21:36 Dose: 4.5 mg Documented by: Thyroid 90 Mg *Ptom 90 mg PO DAILY@0600 [facility] Last Admin: 07/27/20 06:00 Dose: 90 mg Documented by: Ondansetron HCl (Zofran Odt) 4 mg PO Q4H PRN PRN Reason: Nausea/Vomiting Last Admin: 07/27/20 12:40 Dose: 4 mg Documented by: Prednisone (Prednisone) 5 mg PO BEDTIME [facility] Last Admin: 07/26/20 21:37 Dose: 5 mg Documented by: Prednisone (Prednisone) 2.5 mg PO DAILY [facility] Last Admin: 07/27/20 09:00 Dose: 2.5 mg Documented by: Saccharomyces Boulardii (Florastor) 500 mg PO BID [facility] Last Admin: 07/27/20 09:23 Dose: 500 mg Documented by: Sodium Chloride (Saline Flush) 10 ml FLUSH ASDIRECTED PRN PRN Reason: flush for iv meds Last Admin: 07/25/20 04:45 Dose: 10 ml Documented by: Discontinued Medications Acetaminophen (Tylenol) 650 mg RECTAL Q4H PRN PRN Reason: Mild pain/fever Artificial Tears (Refresh Celluvisc) 0 each EYEBOTH ASDIRECTED PRN PRN Reason: Dry Eyes Dexamethasone (Decadron) 1 mg IVPUSH DAILY [facility] Last Admin: 07/25/20 09:02 Dose: 1 mg Documented by: Enoxaparin Sodium (Lovenox) 30 mg SUBCUT Q24H [facility] Last Admin: 07/24/20 17:52 Dose: 30 mg Documented by: Hydromorphone HCl (Dilaudid) 1 mg IVPUSH ONETIME ONE Stop: 07/24/20 10:44 Last Admin: 07/24/20 10:55 Dose: 1 mg Documented by: Hydromorphone HCl (Dilaudid) 1 mg IVPUSH ONETIME ONE Stop: 07/24/20 12:22 Last Admin: 07/24/20 12:24 Dose: 1 mg Documented by: Hydromorphone HCl (Dilaudid) 1 mg IVPUSH Q2H PRN PRN Reason: Pain (severe 7-10) Hydroxyzine HCl (Vistaril) 50 mg IM Q4H PRN PRN Reason: Nausea/Vomiting Sodium Chloride (Normal Saline) 1,000 mls @ 999 mls/hr IV .BOLUS ONE Stop: 07/24/20 11:44 Last Admin: 07/24/20 10:30 Dose: 999 mls/hr Documented by: Sodium Chloride (Normal Saline) 1,000 mls @ 999 drops/hr IV .BOLUS ONE Stop: 07/25/20 01:50 Last Admin: 07/24/20 12:22 Dose: Not Given Documented by: Sodium Chloride (Normal Saline) 1,000 mls @ 999 mls/hr IV ASDIRECTED [facility] Last Admin: 07/24/20 11:47 Dose: 999 mls/hr Documented by: Piperacillin Sod/Tazobactam (Sod 3.375 gm/ Sodium Chloride) 50 mls @ 100 mls/hr IV Q6H [facility] Last Admin: 07/25/20 03:56 Dose: Not Given Documented by: Potassium Chloride 10 meq/ (Premix) 100 mls @ 100 mls/hr IV ONETIME ONE Stop: 07/24/20 16:11 Last Admin: 07/24/20 16:50 Dose: 100 mls/hr Documented by: Lactated Ringer's (Ringers, Lactated) 1,000 mls @ 150 mls/hr IV ASDIRECTED [facility] Potassium Chloride 20 meq/ (Lactated Ringer's) 1,010 mls @ 150 mls/hr IV ASDIRECTED [facility] Lactated Ringer's (Ringers, Lactated) 1,000 mls @ 125 mls/hr IV ASDIRECTED [facility] Last Admin: 07/25/20 06:02 Dose: 250 mls/hr Documented by: Potassium Chloride (Kcl 20 Meq In Water 100 Ml) 100 mls @ 50 mls/hr IV Q2H [facility] Stop: 07/24/20 20:59 Last Admin: 07/24/20 20:07 Dose: 50 mls/hr Documented by: Piperacillin Sod/Tazobactam (Sod 3.375 gm/ Sodium Chloride) 50 mls @ 100 mls/hr IV Q6H [facility] Last Admin: 07/27/20 03:40 Dose: 100 mls/hr Documented by: Dextrose/Lactated Ringer's (Dextrose 5%-Lactated Ringers) 1,000 mls @ 125 mls/hr IV ASDIRECTED [facility] Last Admin: 07/26/20 04:27 Dose: 125 mls/hr Documented by: Ketorolac Tromethamine (Toradol) 30 mg IVPUSH Q6H PRN PRN Reason: Pain (moderate 4-6) Stop: 07/29/20 16:36 Ketorolac Tromethamine (Toradol) 15 mg IVPUSH Q6H PRN PRN Reason: Pain/Fever Last Admin: 07/25/20 08:28 Dose: 15 mg Documented by: Ketorolac Tromethamine (Toradol) 30 mg IVPUSH Q6H PRN PRN Reason: PAIN/FEVER Last Admin: 07/26/20 10:12 Dose: 30 mg Documented by: Metoclopramide HCl (Reglan) 10 mg IVPUSH ONETIME ONE Stop: 07/24/20 11:49 Last Admin: 07/24/20 11:54 Dose: 10 mg Documented by: Morphine Sulfate (Morphine) 2 mg IVPUSH Q4H PRN PRN Reason: Pain Last Admin: 07/24/20 23:00 Dose: 2 mg Documented by: Morphine Sulfate (Morphine) 2 mg IVPUSH Q2H PRN PRN Reason: Pain Last Admin: 07/25/20 04:57 Dose: 2 mg Documented by: Ondansetron HCl (Zofran) 4 mg IVPUSH ONETIME ONE Stop: 07/24/20 10:44 Last Admin: 07/24/20 10:50 Dose: 4 mg Documented by: Ondansetron HCl (Zofran) 4 mg IV Q4H PRN PRN Reason: Nausea/Vomiting Last Admin: 07/26/20 12:58 Dose: 4 mg Documented by: - Exam Lungs: Clear to Auscultation, Normal Respiratory Effort Cardiovascular: Regular Rate, Regular Rhythm GI/Abdominal Exam: Normal Bowel Sounds, Soft, Distended (epigastric area, TTP over left costal cartilage), Guarding (epigastric), Tender. No: Rigid, Rebound Sepsis Event Note - Evaluation Sepsis Screening Result: No Definite Risk - Focused Exam Vital Signs: Vital Signs Temp Pulse Resp BP Pulse Ox 07/27/20 16:00 97.8 F 73 16 121/54 L 93 L 07/27/20 12:00 97.7 F 95 14 122/63 94 L 07/27/20 08:00 97.5 F 61 14 140/64 93 L - Problem List & Annotations (1) Bowel obstruction SNOMED Code(s): 98302449 Code(s): K56.609 - UNSP INTESTNL OBST, UNSP TO PARTIAL VERSUS COMPLETE OBST Status: Acute Current Visit: Yes Annotation/Comment:: Advance to regular. Zosyn discontinued, changed to Augmentin. GPC was staph epidermidis so likely contamination. (2) Dehydration SNOMED Code(s): 93771467 Code(s): E86.0 - DEHYDRATION Status: Acute Current Visit: Yes Annotation/Comment:: improving (3) Rheumatoid arthritis SNOMED Code(s): 16009705 Code(s): M06.9 - RHEUMATOID ARTHRITIS, UNSPECIFIED Status: Chronic C urrent Visit: Yes Annotation/Comment:: home Prednisone 2.5 mg in am, 5 mg in evening. Plaquenil & Naltrexone. (4) Hypothyroid SNOMED Code(s): 11429772 Code(s): E03.9 - HYPOTHYROIDISM, UNSPECIFIED Status: Chronic Current Visit: Yes Annotation/Comment:: Nature Throid. (5) Sepsis SNOMED Code(s): 14468535 Code(s): A41.9 - SEPSIS, UNSPECIFIED ORGANISM Status: Resolved Current Visit: Yes (6) Nausea & vomiting SNOMED Code(s): 84930056 Code(s): R11.2 - NAUSEA WITH VOMITING, UNSPECIFIED Status: Resolved Current Visit: Yes - Problem List Review Problem List Initiated/Reviewed/Updated: Yes - My Orders Last 24 Hours: My Active Orders 07/26/20 21:00 Naltrexone [Naltrexone] 4.5 mg PO BEDTIME predniSONE 5 mg PO BEDTIME 07/27/20 01:03 Carboxymethylcellulose Sodium [Refresh Tears 0.5%] 0 ml EYEBOTH ASDIRECTED PRN 07/27/20 06:00 Thyroid,Pork [Precision Dancer Thyroid] 90 mg PO DAILY@0600 07/27/20 07:45 Amoxicillin/Clavulanate K [Augmentin 875 MG/125 MG] 1 tab PO Q12H 07/27/20 08:07 Discontinue Saline Lock [Peripheral IV Discontinue] [OM.PC] Routine 07/27/20 08:08 Ketorolac [Toradol] 30 mg IM Q6H PRN Ondansetron [Zofran ODT] 4 mg PO Q4H PRN 07/27/20 09:00 Saccharomyces Boulardii [Florastor] 500 mg PO BID 07/27/20 13:52 Metoclopramide [Reglan] 5 mg IM Q6H PRN 07/27/20 Dinner Soft Diet [DIET] - Plan Plan:: 1. SBO: Discontinue Zosyn 3.375 gm IV q6h, BC: 1 set positive staph epidermidis. Tylenol 650 mg PO q4h as needed and Toradol 30 mg IV q6h as needed. 2. Diet: Regular, if she does not tolerate this, will go back to soft diet. 3. DVT: Lovenox 40 mg SQ q24h, TEDs on BLE. Ambulate. 4. Home maybe tomorrow.
[2020-07-27] MEDS: Ketorolac 30 MG/ML SDV IM PRN (19:00)
[2020-07-27] MEDS: Enoxaparin 40 MG/0.4 ML Syringe SUBCUT SCH (19:00)
[2020-07-27] MEDS: predniSONE 5 MG Tab PO SCH (21:20)
[2020-07-27] MEDS: NALTREXONE 4.5 MG PO SCH (21:22)
[2020-07-27] MEDS: Acetaminophen 325 MG Tab PO PRN (22:47)
[2020-07-28] MEDS: Acetaminophen 325 MG Tab PO PRN (03:05)
[2020-07-28] MEDS: Ondansetron 4 MG Tab.DIS PO PRN (03:05)
[2020-07-28] MEDS: Metoclopramide 10 MG/2 ML SDV IM PRN (08:29)
[2020-07-28] MEDS: Amoxicillin/Clavulanate K 875-125 MG Tab PO SCH ×2 (08:31→20:43)
[2020-07-28] MEDS: predniSONE 5 MG Tab *PTOM PO SCH (08:32)
[2020-07-28] MEDS: Saccharomyces Boulardii (Probiotic) 250 MG Cap PO SCH ×2 (08:32→20:44)
--- NOTE | 2020-07-28 09:12 | PCM.PN ---
- General Info Date of Service: 07/28/20 Subjective Update: Andie did not tolerate advancement of her diet yesterday, decreased back to soft, felt okay. Had Zofran and Reglan, slept a little but this morning increased her abdominal pain. Feels it is all over. Yesterday felt more bloated in the upper part of her abdomen. Having some diarrhea. No pain in the right lower quadrant. No fevers. Does not notice any worsening of pain with oral antibiotics. She has not had worse pain with taking her home medications or clear liquids. - Patient Data Vitals - Most Recent: Last Vital Signs Temp 97.7 F 07/28/20 03:00 Pulse 50 L 07/28/20 03:00 Resp 18 07/28/20 03:00 BP 144/68 H 07/28/20 03:00 Pulse Ox 93 L 07/28/20 03:00 Weight - Most Recent: 127 lb 3.2 oz I&O - Last 24 Hours: Intake & Output 07/27/20 07/28/20 07/28/20 22:59 06:59 14:59 Intake Total 640 Output Total 480 0 Balance 160 0 [place] Results Last 24 Hours: Microbiology 07/24/20 16:52 Aerobic Blood Culture - Final Blood - Venous Staphylococcus Epidermidis Anaerobic Blood Culture - Final 07/24/20 16:55 Aerobic Blood Culture - Preliminary Blood NO GROWTH AFTER 3 DAYS Anaerobic Blood Culture - Final Med Orders - Current: Current Medications Acetaminophen (Tylenol) 650 mg PO Q4H PRN PRN Reason: Pain/Fever Last Admin: 07/28/20 03:05 Dose: 650 mg Documented by: Amoxicillin/Clavulanate Potassium (Augmentin 875 Mg/125 Mg) 1 tab PO Q12H [facility] Stop: 08/03/20 07:46 Last Admin: 07/28/20 08:31 Dose: 1 tab Documented by: Artificial Tears (Refresh Tears 0.5%) 0 ml EYEBOTH ASDIRECTED PRN PRN Reason: Dry Eyes Last Admin: 07/27/20 01:33 Dose: 1 drop Documented by: Enoxaparin Sodium (Lovenox) 40 mg SUBCUT DAILY@1800 [facility] Last Admin: 07/27/20 19:00 Dose: 40 mg Documented by: Ketorolac Tromethamine (Toradol) 30 mg IM Q6H PRN PRN Reason: PAIN/FEVER Stop: 07/30/20 23:59 Last Admin: 07/27/20 19:00 Dose: 30 mg Documented by: Metoclopramide HCl (Reglan) 5 mg IM Q6H PRN PRN Reason: NAUSEA/VOMITING Last Admin: 07/28/20 08:29 Dose: 5 mg Documented by: (Hydroxychloroquine [Plaquenil] 200 Mg) *Ptom 200 mg PO BID [facility] Last Admin: 07/28/20 08:32 Dose: 200 mg Documented by: (Naltrexone [ Naltrexone] 4.5 Mg Tab) 4.5 mg PO BEDTIME [facility] Last Admin: 07/27/20 21:22 Dose: 4.5 mg Documented by: Thyroid 90 Mg *Ptom 90 mg PO DAILY@0600 [facility] Last Admin: 07/28/20 06:19 Dose: 90 mg Documented by: Ondansetron HCl (Zofran Odt) 4 mg PO Q4H PRN PRN Reason: Nausea/Vomiting Last Admin: 07/28/20 03:05 Dose: 4 mg Documented by: Prednisone (Prednisone) 5 mg PO BEDTIME [facility] Last Admin: 07/27/20 21:20 Dose: 5 mg Documented by: Prednisone (Prednisone) 2.5 mg PO DAILY [facility] Last Admin: 07/28/20 08:32 Dose: 2.5 mg Documented by: Saccharomyces Boulardii (Florastor) 500 mg PO BID [facility] Last Admin: 07/28/20 08:32 Dose: 500 mg Documented by: Sodium Chloride (Saline Flush) 10 ml FLUSH ASDIRECTED PRN PRN Reason: flush for iv meds Last Admin: 07/25/20 04:45 Dose: 10 ml Documented by: Discontinued Medications Acetaminophen (Tylenol) 650 mg RECTAL Q4H PRN PRN Reason: Mild pain/fever Artificial Tears (Refresh Celluvisc) 0 each EYEBOTH ASDIRECTED PRN PRN Reason: Dry Eyes Dexamethasone (Decadron) 1 mg IVPUSH DAILY [facility] Last Admin: 07/25/20 09:02 Dose: 1 mg Documented by: Enoxaparin Sodium (Lovenox) 30 mg SUBCUT Q24H [facility] Last Admin: 07/24/20 17:52 Dose: 30 mg Documented by: Hydromorphone HCl (Dilaudid) 1 mg IVPUSH ONETIME ONE Stop: 07/24/20 10:44 Last Admin: 07/24/20 10:55 Dose: 1 mg Documented by: Hydromorphone HCl (Dilaudid) 1 mg IVPUSH ONETIME ONE Stop: 07/24/20 12:22 Last Admin: 07/24/20 12:24 Dose: 1 mg Documented by: Hydromorphone HCl (Dilaudid) 1 mg IVPUSH Q2H PRN PRN Reason: Pain (severe 7-10) Hydroxyzine HCl (Vistaril) 50 mg IM Q4H PRN PRN Reason: Nausea/Vomiting Sodium Chloride (Normal Saline) 1,000 mls @ 999 mls/hr IV .BOLUS ONE Stop: 07/24/20 11:44 Last Admin: 07/24/20 10:30 Dose: 999 mls/hr Documented by: Sodium Chloride (Normal Saline) 1,000 mls @ 999 drops/hr IV .BOLUS ONE Stop: 07/25/20 01:50 Last Admin: 07/24/20 12:22 Dose: Not Given Documented by: Sodium Chloride (Normal Saline) 1,000 mls @ 999 mls/hr IV ASDIRECTED [facility] Last Admin: 07/24/20 11:47 Dose: 999 mls/hr Documented by: Piperacillin Sod/Tazobactam (Sod 3.375 gm/ Sodium Chloride) 50 mls @ 100 mls/hr IV Q6H [facility] Last Admin: 07/25/20 03:56 Dose: Not Given Documented by: Potassium Chloride 10 meq/ (Premix) 100 mls @ 100 mls/hr IV ONETIME ONE Stop: 07/24/20 16:11 Last Admin: 07/24/20 16:50 Dose: 100 mls/hr Documented by: Lactated Ringer's (Ringers, Lactated) 1,000 mls @ 150 mls/hr IV ASDIRECTED [facility] Potassium Chloride 20 meq/ (Lactated Ringer's) 1,010 mls @ 150 mls/hr IV ASDIRECTED [facility] Lactated Ringer's (Ringers, Lactated) 1,000 mls @ 125 mls/hr IV ASDIRECTED [facility] Last Admin: 07/25/20 06:02 Dose: 250 mls/hr Documented by: Potassium Chloride (Kcl 20 Meq In Water 100 Ml) 100 mls @ 50 mls/hr IV Q2H [facility] Stop: 07/24/20 20:59 Last Admin: 07/24/20 20:07 Dose: 50 mls/hr Documented by: Piperacillin Sod/Tazobactam (Sod 3.375 gm/ Sodium Chloride) 50 mls @ 100 mls/hr IV Q6H [facility] Last Admin: 07/27/20 03:40 Dose: 100 mls/hr Documented by: Dextrose/Lactated Ringer's (Dextrose 5%-Lactated Ringers) 1,000 mls @ 125 mls/hr IV ASDIRECTED [facility] Last Admin: 07/26/20 04:27 Dose: 125 mls/hr Documented by: Ketorolac Tromethamine (Toradol) 30 mg IVPUSH Q6H PRN PRN Reason: Pain (moderate 4-6) Stop: 07/29/20 16:36 Ketorolac Tromethamine (Toradol) 15 mg IVPUSH Q6H PRN PRN Reason: Pain/Fever Last Admin: 07/25/20 08:28 Dose: 15 mg Documented by: Ketorolac Tromethamine (Toradol) 30 mg IVPUSH Q6H PRN PRN Reason: PAIN/FEVER Last Admin: 07/26/20 10:12 Dose: 30 mg Documented by: Metoclopramide HCl (Reglan) 10 mg IVPUSH ONETIME ONE Stop: 07/24/20 11:49 Last Admin: 07/24/20 11:54 Dose: 10 mg Documented by: Morphine Sulfate (Morphine) 2 mg IVPUSH Q4H PRN PRN Reason: Pain Last Admin: 07/24/20 23:00 Dose: 2 mg Documented by: Morphine Sulfate (Morphine) 2 mg IVPUSH Q2H PRN PRN Reason: Pain Last Admin: 07/25/20 04:57 Dose: 2 mg Documented by: Ondansetron HCl (Zofran) 4 mg IVPUSH ONETIME ONE Stop: 07/24/20 10:44 Last Admin: 07/24/20 10:50 Dose: 4 mg Documented by: Ondansetron HCl (Zofran) 4 mg IV Q4H PRN PRN Reason: Nausea/Vomiting Last Admin: 07/26/20 12:58 Dose: 4 mg Documented by: - Exam General: Alert, Oriented, Cooperative, Mild Distress (chilled) Lungs: Clear to Auscultation, Normal Respiratory Effort Cardiovascular: Regular Rate, Regular Rhythm GI/Abdominal Exam: Normal Bowel Sounds, Soft, Distended (improved today), Guarding, Tender (diffuse). No: Rigid, Rebound Sepsis Event Note - Evaluation Sepsis Screening Result: No Definite Risk - Focused Exam Vital Signs: Vital Signs Temp Pulse Resp BP Pulse Ox 07/28/20 03:00 97.7 F 50 L 18 144/68 H 93 L 07/28/20 00:00 18 07/27/20 22:00 98 F 61 18 147/76 H 92 L - Problem List & Annotations (1) Bowel obstruction SNOMED Code(s): 34275840 Code(s): K56.609 - UNSP INTESTNL OBST, UNSP TO PARTIAL VERSUS COMPLETE OBST Status: Acute Current Visit: Yes Annotation/Comment:: Go back to clears today. Continue Augmentin. Zofran & Reglan as needed nausea. (2) Dehydration SNOMED Code(s): 03055704 Code(s): E86.0 - DEHYDRATION Status: Resolved Current Visit: Yes Annotation/Comment:: improving (3) Rheumatoid arthritis SNOMED Code(s): 01502733 Code(s): M06.9 - RHEUMATOID ARTHRITIS, UNSPECIFIED Status: Chronic Current Visit: Yes Annotation/Comment:: home Prednisone 2.5 mg in am, 5 mg in evening. Plaquenil & Naltrexone. (4) Hypothyroid SNOMED Code(s): 04905687 Code(s): E03.9 - HYPOTHYROIDISM, UNSPECIFIED Status: Chronic Current Visit: Yes Annotation/Comment:: Nature Throid. (5) Sepsis SNOMED Code(s): 71822081 Code(s): A41.9 - SEPSIS, UNSPECIFIED ORGANISM Status: Resolved Current Visit: Yes (6) Nausea & vomiting SNOMED Code(s): 42789266 Code(s): R11.2 - NAUSEA WITH VOMITING, UNSPECIFIED Status: Acute Current Visit: Yes - Problem List Review Problem List Initiated/Reviewed/Updated: Yes - My Orders Last 24 Hours: My Active Orders 07/27/20 08:08 Ketorolac [Toradol] 30 mg IM Q6H PRN Ondansetron [Zofran ODT] 4 mg PO Q4H PRN 07/27/20 09:00 Saccharomyces Boulardii [Florastor] 500 mg PO BID 07/27/20 13:52 Metoclopramide [Reglan] 5 mg IM Q6H PRN 07/27/20 Dinner Soft Diet [DIET] 07/28/20 Lunch Clear Liquid Diet [DIET] - Plan Plan:: 1. SBO: Augmentin 875/125 mg bid. Tylenol 650 mg PO q4h as needed and Toradol 30 mg IM q6h as needed. 2. Diet: Clear liquids with medications. Zofran oral q4h and Reglan 5 mg IM q4h as needed nausea. 3. DVT: Lovenox 40 mg SQ q24h, TEDs on BLE. Ambulate. 4. Will see how she does today and will discharge when tolerating diet.
[2020-07-28] MEDS ORDERED: Metoclopramide 5 MG Tab PO PRN (09:27)
--- NOTE | 2020-07-28 17:24 | CR ---
INDICATION: Followup small bowel obstruction, increased distention and nausea. ABDOMEN TWO VIEWS: Four images of the abdomen were obtained in supine and upright projections and reveal multiple air-fluid levels in small and large bowel, but with very little distention. The appearance would be compatible with gastroenteritis or generalized paralytic ileus of mild degree. This should be correlated clinically. No free air was identified, no definite mechanically obstructive process was seen at this time. The current study was obtained 07/28/20 and is compared with 07/25/20. The oral contrast seen in the colon on the previous examination is no longer visible. MTDD
[2020-07-28] MEDS: Enoxaparin 40 MG/0.4 ML Syringe SUBCUT SCH (18:43)
[2020-07-28] MEDS: NALTREXONE 4.5 MG PO SCH (20:45)
[2020-07-28] MEDS: predniSONE 5 MG Tab PO SCH (20:46)
[2020-07-28] MEDS: Ketorolac 30 MG/ML SDV IM PRN (21:02)
[2020-07-29] MEDS: predniSONE 5 MG Tab *PTOM PO SCH (08:22)
[2020-07-29] MEDS: Amoxicillin/Clavulanate K 875-125 MG Tab PO SCH (08:24)
[2020-07-29] MEDS: Saccharomyces Boulardii (Probiotic) 250 MG Cap PO SCH (08:24)
--- NOTE | 2020-07-29 11:46 | DISCH ---
DISCHARGE DATE: 07/29/2020 REASON FOR ADMISSION: 1. Sepsis. 2. Bowel obstruction. 3. Nausea and vomiting. 4. Dehydration. 5. History of rheumatoid arthritis. 6. Hypothyroidism. 7. History of scleroderma. DISCHARGE DIAGNOSES: 1. Small bowel obstruction, improved. 2. Sepsis. 3. Rheumatoid arthritis. 4. Hypothyroidism. 5. Scleroderma. CONSULTATIONS: Dr. Brown. BRIEF HISTORY AND HOSPITAL COURSE: A 60-year-old who has had abdominal pain and was admitted with sepsis, bowel obstruction, and has been treated conservatively with IV Zosyn and fluids and n.p.o. She has improved enough to return home today. Hemoglobin is 9.4 on 07/27/2020 and will need follow up in the office. Blood cultures grew Staphylococcus epidermidis, likely contaminant, but has been treated initially with Zosyn and is sensitive to Augmentin which she will go home on. I advised followup visit on Saturday with PCP at the [place]. If things get worse, to return to the emergency room. I spent more than 35 minutes in the discharge of the patient. /[id number] AICHA/DIONI
== END 2020-07-29 10:15 | disposition home or self-care (01) | DRG 872 ==
LOC: FB.ED 10:14 → FB.MS 14:47
PROVIDERS: ADMIT Family Medicine; ATTEND Family Medicine
DX: A41.9 Sepsis, unspecified organism (principal); K56.609 Unspecified intestinal obstruction, unspecified as to partial versus complete obstruction; M06.9 Rheumatoid arthritis, unspecified; M79.7 Fibromyalgia; M34.9 Systemic sclerosis, unspecified; E86.0 Dehydration; H54.7 Unspecified visual loss; F32.9 Major depressive disorder, single episode, unspecified; G43.909 Migraine, unspecified, not intractable, without status migrainosus; F41.9 Anxiety disorder, unspecified; E03.9 Hypothyroidism, unspecified; D64.9 Anemia, unspecified; E87.6 Hypokalemia; Z90.49 Acquired absence of other specified parts of digestive tract; Z79.890 Hormone replacement therapy; Z79.52 Long term (current) use of systemic steroids; Z79.899 Other long term (current) drug therapy; Z20.828 Contact with and (suspected) exposure to other viral communicable diseases
CPT/HCPCS: 36415; 74176; 80053; 82150; 83605; 83690; 85025; 87635; 96374; 96375; 96376; 99285 ×2; J1170 ×2; J2405; J2765; J7030 ×2; 51702; 74018; 74019; 80048; 81001; 87040; 87077; 87186; 94150; 99239; A9270-GY; J1100; J1650; J1885; J2270; J2543; J3480; J7050; J7120; J7121; J7512; U0002

== ENCOUNTER 2021-05-10 09:18 | Emergency (ER) | payer OTHER ==
[2021-05-10] MEDS: Ketorolac 30 MG/ML SDV IM STA (09:52)
[2021-05-10] MEDS: Ondansetron 4 MG Tab.DIS PO STA (09:53)
--- NOTE | 2021-05-10 10:29 | EDM.PDOC ---
ED HPI GENERAL MEDICAL PROBLEM - General Chief Complaint: Headache Stated Complaint: COVID SYMSTOM Time Seen by Provider: 05/10/21 09:30 Source of Information: Reports: Patient History Limitations: Reports: No Limitations - History of Present Illness INITIAL COMMENTS - FREE TEXT/NARRATIVE: Patient presented to the ED because of headache, nausea and photophobia for 4 days. She took OTC Exedrin without significant relief. He also c/o cough/cold, sore throat. Headache Pain Score (Numeric/FACES): 10 - Related Data Allergies Allergy/AdvReac Type Severity Reaction Status Date / Time No Known Allergies Allergy Verified 09/05/18 22:20 Home Meds: Home Meds predniSONE [Prednisone] 2.5 mg PO DAILY 04/15/18 [History] Hydroxychloroquine [Plaquenil] 200 mg PO BID 07/24/20 [History] Naltrexone 4.5 mg PO BEDTIME 07/24/20 [History] Thyroid,Pork [Preschool Aide Thyroid] 90 mg PO DAILY@0600 07/26/20 [History] predniSONE [Prednisone] 5 mg PO BEDTIME 07/26/20 [History] Amoxicillin/Clavulanate K [Augmentin 875-125 MG] 1 tab PO Q12H #14 tablet 07/29/20 [Rx] Acetaminophen/HYDROcodone [HYDROcodone-Acetaminophen 5-325 MG *] 1 tab PO Q4H PRN #15 each 05/10/21 [Rx] Ondansetron [Zofran ODT] 4 mg PO Q4H PRN #7 tab.dis 05/10/21 [Rx] Past Medical History HEENT History: Reports: Impaired Vision Other HEENT History: THYROID DISEASE Cardiovascular History: Reports: None Respiratory History: Reports: None Gastrointestinal History: Reports: Bowel Obstruction, Other (See Below) Other Gastrointestinal History: hx intrasucception Genitourinary History: Reports: None 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 4 Musculoskeletal History: Reports: Fibromyalgia, RA Neurological History: Reports: Migraines Psychiatric History: Reports: Anxiety, Depression Endocrine/Metabolic History: Reports: Hypothyroidism Hematologic History: Reports: Anemia Oncologic (Cancer) History: Reports: None Dermatologic History: Reports: None - Infectious Disease History Infectious Disease History: Reports: Chicken Pox, Mumps - Past Surgical History Head Surgeries/Procedures: Reports: None HEENT Surgical History: Reports: Adenoidectomy, Oral Surgery, Tonsillectomy Respiratory Surgical History: Reports: None GI Surgical History: Reports: Appendectomy, Other (See Below) Other GI Surgeries/Procedures: exp lap Female Surgical History: Reports: Section Other Female Surgeries/Procedures: CS x 1 Neurological Surgical History: Reports: None Musculoskeletal Surgical History: Reports: Other (See Below) Other Musculoskeletal Surgeries/Procedures:: hammer toe & bunion surgery bilat feet Dermatological Surgical History: Reports: Skin Graft Social & Family History - Family History Family Medical History: No Pertinent Family History - Tobacco Use Tobacco Use Status *Q: Never Tobacco User - Caffeine Use Caffeine Use: Reports: Tea - Recreational Drug Use Recreational Drug Use: No ED ROS GENERAL - Review of Systems Review Of Systems: See Below Constitutional: Reports: No Symptoms HEENT: Reports: No Symptoms Respiratory: Reports: Cough Cardiovascular: Reports: No Symptoms Endocrine: Reports: No Symptoms GI/Abdominal: Reports: No Symptoms : Reports: No Symptoms Musculoskeletal: Reports: No Symptoms Skin: Reports: No Symptoms Neurological: Reports: No Symptoms Psychiatric: Reports: No Symptoms ED EXAM, GENERAL - Physical Exam Exam: See Below Exam Limited By: No Limitations General Appearance: Alert, No Apparent Distress Ears: Normal External Exam, Normal Canal Nose: Normal Inspection, Normal Mucosa, No Blood Throat/Mouth: Normal Inspection, Normal Lips, Normal Teeth, Normal Gums, Normal Oropharynx, Normal Voice Head: Atraumatic, Normocephalic Neck: Normal Inspection, Supple, Non-Tender, Full Range of Motion Respiratory/Chest: No Respiratory Distress, Lungs Clear, Normal Breath Sounds, No Accessory Muscle Use, Chest Non-Tender Cardiovascular: Normal Peripheral Pulses, Regular Rate, Rhythm, No Edema, No Gallop, No JVD, No Murmur, No Rub GI/Abdominal: Normal Bowel Sounds, Soft, Non-Tender, No Organomegaly, No Distention, No Abnormal Bruit, No Mass Back Exam: Normal Inspection, Full Range of Motion Extremities: Normal Inspection, Normal Range of Motion, Non-Tender, No Pedal Edema, Normal Capillary Refill Neurological: Alert, Oriented, CN II-XII Intact, Normal Cognition, Normal Gait, Normal Reflexes, No Motor/Sensory Deficits Psychiatric: Normal Affect, Normal Mood Skin Exam: Warm Course - Vital Signs Text/Narrative:: lab result was reviewed and discussed with patient COVID test-positive Toradol 60 mg IM x1 Zofran ODT 4 mg PO x1 Last Recorded V/S: Last Vital Signs Temp 36.8 C 05/10/21 09:26 Pulse 111 H 05/10/21 09:26 Resp 20 05/10/21 09:26 BP 153/89 H 05/10/21 09:26 Pulse Ox 99 05/10/21 09:26 - Orders/Labs/Meds Orders: Active Orders 24 hr Category Date Time Status Isolation [COMM] Routine Oth 05/10/21 09:39 Ordered Labs: Laboratory Tests 05/10/21 Range/Units 09:40 SARS-CoV-2 RNA (COLLETTE) Positive H (NEGATIVE) Meds: Medications Discontinued Medications Generic Name Dose Route Start Last Admin Trade Name Freq PRN Reason Stop Dose Admin Ketorolac Tromethamine 60 mg 05/10/21 09:37 05/10/21 09:52 Ketorolac 30 Mg/Ml Sdv IM 05/10/21 09:38 60 mg NOW STA Administration Ondansetron HCl 4 mg 05/10/21 09:38 05/10/21 09:53 Ondansetron 4 Mg Tab.Dis PO 05/10/21 09:39 4 mg NOW STA Administration Departure - Departure Time of Disposition: 10:35 Disposition: Home, Self-Care 01 Condition: Good Clinical Impression: COVID-19 virus infection, Migraine - Discharge Information Prescriptions: Acetaminophen/HYDROcodone [HYDROcodone-Acetaminophen 5-325 MG *] 1 tab PO Q4H PRN #15 each PRN Reason: Pain Ondansetron [Zofran ODT] 4 mg PO Q4H PRN #7 tab.dis PRN Reason: Nausea Instructions: COVID-19 Frequently Asked Questions, Migraine Headache Referrals: Mynor Love MD [Primary Care Provider] - Forms: ED Department Discharge Additional Instructions: Please read discharge instructions on Covid 19 infection and migraine Quarantine yourself for 10-14 days Drink 2 liters of water daily Zofran ODT 4 mg every 4 hours as needed for nausea [place] 5 mg, take 1-2 tablets with ibuprofen 600 mg every 4-6 hours as needed for pain Ask you doctor about monoclonal antibody infusion Follow up as needed Sepsis Event Note (ED) - Evaluation Sepsis Screening Result: No Definite Risk - Focused Exam Vital Signs: Vital Signs Temp Pulse Resp BP Pulse Ox 05/10/21 09:26 36.8 C 111 H 20 153/89 H 99 - My Orders Last 24 Hours: My Active Orders 05/10/21 09:39 Isolation [COMM] Routine - Assessment/Plan Last 24 Hours: My Active Orders 05/10/21 09:39 Isolation [COMM] Routine
== END 2021-05-10 10:45 | disposition home or self-care (01) ==
LOC: FB.ED 09:18
DX: U07.1 COVID-19 (principal); G43.909 Migraine, unspecified, not intractable, without status migrainosus; E03.9 Hypothyroidism, unspecified; Z79.899 Other long term (current) drug therapy
CPT/HCPCS: 87635; 87804; 96372; 99284; A9270; J1885; U0002

== ENCOUNTER 2021-05-15 11:07 | Emergency (ER) | payer OTHER ==
[2021-05-15] MEDS ORDERED: Sodium Chloride 0.9% 10 ML Syringe FLUSH PRN (11:40)
[2021-05-15] MEDS ORDERED: Ketorolac 30 MG/ML SDV IVPUSH ONE (11:42)
[2021-05-15] MEDS ORDERED: Ondansetron 4 MG/2 ML SDV IVPUSH ONE ×2 (11:53→13:19)
[2021-05-15] MEDS ORDERED: LORazepam 2 MG/ML SDV IVPUSH ONE (11:54)
[2021-05-15] MEDS ORDERED: Sodium Chloride 0.9% 1,000 ML IV SCH (12:00)
--- NOTE | 2021-05-15 13:19 | EDM.PDOC ---
ED HPI GENERAL MEDICAL PROBLEM - General Chief Complaint: Respiratory Problem Stated Complaint: DOESNT FEEL GOOD, COVID POSSITIVE Time Seen by Provider: 05/15/21 11:15 Source of Information: Reports: Patient History Limitations: Reports: No Limitations - History of Present Illness INITIAL COMMENTS - FREE TEXT/NARRATIVE: Patient presented to the ED because of pos pleuritic chest pain,cough,headache and nausea. She was diagnosed with Covid 8 days ago and since then her she is going downhill although her vs are normal upon discharge. - Related Data Allergies Allergy/AdvReac Type Severity Reaction Status Date / Time No Known Allergies Allergy Verified 09/05/18 22:20 Home Meds: Home Meds predniSONE [Prednisone] 2.5 mg PO DAILY 04/15/18 [History] Hydroxychloroquine [Plaquenil] 200 mg PO BID 07/24/20 [History] Naltrexone 4.5 mg PO BEDTIME 07/24/20 [History] Thyroid,Pork [Time Clock Repairer Thyroid] 90 mg PO DAILY@0600 07/26/20 [History] predniSONE [Prednisone] 5 mg PO BEDTIME 07/26/20 [History] Amoxicillin/Clavulanate K [Augmentin 875-125 MG] 1 tab PO Q12H #14 tablet 07/29/20 [Rx] Acetaminophen/HYDROcodone [HYDROcodone-Acetaminophen 5-325 MG *] 1 tab PO Q4H PRN #15 each 05/10/21 [Rx] Ondansetron [Zofran ODT] 4 mg PO Q4H PRN #7 tab.dis 05/10/21 [Rx] Ketorolac [Toradol] 10 mg PO Q8H PRN #15 tab 05/15/21 [Rx] Ondansetron [Zofran ODT] 4 mg PO Q4H PRN #7 tab.dis 05/15/21 [Rx] traMADol [Ultram] 100 mg PO Q8H PRN #15 tab 05/15/21 [Rx] Past Medical History HEENT History: Reports: Impaired Vision Other HEENT History: THYROID DISEASE Cardiovascular History: Reports: None Respiratory History: Reports: None Gastrointestinal History: Reports: Bowel Obstruction, Other (See Below) Other Gastrointestinal History: hx intrasucception Genitourinary History: Reports: None 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 Musculoskeletal History: Reports: Fibromyalgia, RA Neurological History: Reports: Migraines Psychiatric History: Reports: Anxiety, Depression Endocrine/Metabolic History: Reports: Hypothyroidism Hematologic History: Reports: Anemia Oncologic (Cancer) History: Reports: None Dermatologic History: Reports: None - Infectious Disease History Infectious Disease History: Reports: Chicken Pox, Mumps - Past Surgical History Head Surgeries/Procedures: Reports: None HEENT Surgical History: Reports: Adenoidectomy, Oral Surgery, Tonsillectomy Respiratory Surgical History: Reports: None GI Surgical History: Reports: Appendectomy, Other (See Below) Other GI Surgeries/Procedures: exp lap Female Surgical History: Reports: Section Other Female Surgeries/Procedures: CS x 1 Neurological Surgical History: Reports: None Musculoskeletal Surgical History: Reports: Other (See Below) Other Musculoskeletal Surgeries/Procedures:: hammer toe & bunion surgery bilat feet Dermatological Surgical History: Reports: Skin Graft Social & Family History - Family History Family Medical History: No Pertinent Family History - Tobacco Use Tobacco Use Status *Q: Never Tobacco User - Caffeine Use Caffeine Use: Reports: Soda - Recreational Drug Use Recreational Drug Use: No ED ROS GENERAL - Review of Systems Review Of Systems: See Below Constitutional: Reports: No Symptoms, Malaise, Weakness HEENT: Reports: No Symptoms Respiratory: Reports: Cough Cardiovascular: Reports: Chest Pain Endocrine: Reports: No Symptoms GI/Abdominal: Reports: Nausea : Reports: No Symptoms Musculoskeletal: Reports: No Symptoms Skin: Reports: No Symptoms Neurological: Reports: No Symptoms Psychiatric: Reports: No Symptoms Hematologic/Lymphatic: Reports: No Symptoms Immunologic: Reports: No Symptoms ED EXAM, GENERAL - Physical Exam Exam: See Below Exam Limited By: No Limitations General Appearance: Alert, No Apparent Distress Ears: Normal External Exam, Normal Canal Nose: Normal Inspection, Normal Mucosa, No Blood Throat/Mouth: Normal Inspection, Normal Lips, Normal Teeth, Normal Gums, Normal Oropharynx, Normal Voice Head: Atraumatic, Normocephalic Neck: Normal Inspection, Supple, Non-Tender, Full Range of Motion Respiratory/Chest: No Respiratory Distress, Lungs Clear, Normal Breath Sounds, No Accessory Muscle Use, Chest Non-Tender Cardiovascular: Normal Peripheral Pulses, Regular Rate, Rhythm, No Edema, No Gallop, No JVD, No Murmur, No Rub GI/Abdominal: Normal Bowel Sounds, Soft, Non-Tender, No Organomegaly, No Distention, No Abnormal Bruit Back Exam: Normal Inspection, Full Range of Motion Extremities: Normal Inspection, Normal Range of Motion, Non-Tender Neurological: Alert, Oriented, CN II-XII Intact Psychiatric: Normal Affect Course - Vital Signs Text/Narrative:: Lab/CXR result was reviewed and discussed with patient NS 1 L bolus Zofran 4 mg IV x2 doses Toradol 30 mg IV x1 dose Ativan 1 mg IV x1 Last Recorded V/S: Last Vital Signs Temp 38.3 C H 05/15/21 11:15 Pulse 100 05/15/21 11:15 Resp 22 H 05/15/21 11:15 BP 143/53 H 05/15/21 11:15 Pulse Ox 96 05/15/21 11:30 - Orders/Labs/Meds Orders: Active Orders 24 hr Category Date Time Status Sodium Chloride 0.9% [Normal Saline] 1,000 ml Med 05/15/21 12:00 Active IV ASDIRECTED Sodium Chloride 0.9% [Saline Flush] Med 05/15/21 11:40 Active 10 ml FLUSH ASDIRECTED PRN Saline Lock Insert [OM.PC] Routine Oth 05/15/21 11:40 Ordered Medication Orders Sodium Chloride (Normal Saline) 1,000 mls @ 999 mls/hr IV ASDIRECTED SOBIEDA Last Admin: 05/15/21 11:57 Dose: 999 mls/hr Documented by: LINDA Sodium Chloride (Sodium Chloride 0.9% 10 Ml Syringe) 10 ml FLUSH ASDIRECTED PRN PRN Reason: Keep Vein Open Last Admin: 05/15/21 11:44 Dose: 10 ml Documented by: LINDA Labs: Laboratory Tests 05/15/21 05/15/21 Range/Units 12:12 12:12 WBC 1.9 L* (3.0-10.3) x10-3/uL RBC 5.60 H (3.60-5.20) x10(6)uL Hgb 13.2 D (11.4-15.5) g/dL Hct 40.9 D (34.2-48.2) % MCV 73.1 L (76.7-100.5) fL MCH 23.6 L (23.9-33.9) pg MCHC 32.3 (31.9-34.8) g/dL RDW 17.6 H (12.3-16.5) % Plt Count 138 L (151-488) x10(3)uL MPV 7.5 (7.1-12.4) fL Add Manual Diff Yes Neutrophils % (Manual) 32 L (46-82) % Lymphocytes % (Manual) 58 H (13-37) % Monocytes % (Manual) 10 (4-12) % Sodium 138 (135-145) mmol/L Potassium 4.5 (3.5-5.3) mmol/L Chloride 102 (100-110) mmol/L Carbon Dioxide 24 (21-32) mmol/L BUN 13 (7-18) mg/dL Creatinine 0.7 (0.55-1.02) mg/dL Est Cr Clr Drug Dosing TNP Estimated GFR (MDRD) > 60 (>60) BUN/Creatinine Ratio 18.6 (9-20) Glucose 80 (80-116) mg/dL Calcium 8.4 L (8.6-10.2) mg/dL Meds: Medications Generic Name Dose Route Start Last Admin Trade Name Freq PRN Reason Stop Dose Admin Sodium Chloride 1,000 mls @ 999 mls/hr 05/15/21 12:00 05/15/21 11:57 Normal Saline IV 999 mls/hr ASDIRECTED SOBEIDA Administration Sodium Chloride 10 ml 05/15/21 11:40 05/15/21 11:44 Sodium Chloride 0.9% 10 Ml Syringe FLUSH 10 ml ASDIRECTED PRN Administration Keep Vein Open Discontinued Medications Generic Name Dose Route Start Last Admin Trade Name Mackq PRN Reason Stop Dose Admin Ketorolac Tromethamine 30 mg 05/15/21 11:42 05/15/21 11:56 Ketorolac 30 Mg/Ml Sdv IVPUSH 05/15/21 11:43 30 mg ONETIME ONE Administration Lorazepam 1 mg 05/15/21 11:54 05/15/21 12:01 Lorazepam 2 Mg/Ml Sdv IVPUSH 05/15/21 11:55 1 mg ONETIME ONE Administration Ondansetron HCl 4 mg 05/15/21 11:53 05/15/21 12:02 Ondansetron 4 Mg/2 Ml Sdv IVPUSH 05/15/21 11:54 4 mg ONETIME ONE Administration Ondansetron HCl 4 mg 05/15/21 13:19 Ondansetron 4 Mg/2 Ml Sdv IVPUSH 05/15/21 13:20 ONETIME ONE Departure - Departure Time of Disposition: 13:30 Disposition: Home, Self-Care 01 Condition: Good Clinical Impression: COVID-19 virus infection, Leukopenia - Discharge Information Prescriptions: Ketorolac [Toradol] 10 mg PO Q8H PRN #15 tab PRN Reason: Pain traMADol [Ultram] 100 mg PO Q8H PRN #15 tab PRN Reason: Pain Ondansetron [Zofran ODT] 4 mg PO Q4H PRN #7 tab.dis PRN Reason: Headache Instructions: COVID-19 Frequently Asked Questions, 10 Things You Can Do to Manage Your COVID-19 Symptoms at Home - [facility] (02/24/2021) Referrals: Mynor Love MD [Primary Care Provider] - Forms: ED Department Discharge Additional Instructions: Please read discharge instructions on Covid 19 Toradol 10 mg, tramadol 100 mg, tylenol 1000 mg every 8 hours as needed for pain/aches/fever. Take them all at same time for better pain relief. Zofran ODT 4 mg every 4 hours as needed for nausea Follow up as needed Sepsis Event Note (ED) - Evaluation Sepsis Screening Result: Possible Sepsis Risk - Focused Exam Vital Signs: Vital Signs Temp Pulse Resp BP Pulse Ox Pulse Ox 05/15/21 11:30 96 05/15/21 11:15 38.3 C H 100 22 H 143/53 H 90 L 05/15/21 11:07 38.3 C H 100 22 H 143/53 H 90 L - My Orders Last 24 Hours: My Active Orders 05/15/21 11:40 Sodium Chloride 0.9% [Saline Flush] 10 ml FLUSH ASDIRECTED PRN Saline Lock Insert [OM.PC] Routine 05/15/21 12:00 Sodium Chloride 0.9% [Normal Saline] 1,000 ml IV ASDIRECTED - Assessment/Plan Last 24 Hours: My Active Orders 05/15/21 11:40 Sodium Chloride 0.9% [Saline Flush] 10 ml FLUSH ASDIRECTED PRN Saline Lock Insert [OM.PC] Routine 05/15/21 12:00 Sodium Chloride 0.9% [Normal Saline] 1,000 ml IV ASDIRECTED
--- NOTE | 2021-05-15 14:49 | CR ---
INDICATION: COVID/dyspnea. CHEST, ONE VIEW: AP upright portable view of the chest was obtained 05/15/21 - no comparisons. The heart appeared normal in size and shape. Calcifications are noted in the arch of the aorta. Overlying EKG leads are noted. Infiltration is noted suprahilar, bilaterally, with interstitial changes present, possibly on the basis of inflammation, edema or infection. No gross consolidating pneumonia or effusion was seen, although a minimal pleural effusion is difficult to exclude at the left costophrenic angle, which is not well seen. IMPRESSION: 1. Bilateral infiltration in a positive COVID-19 patient, may simply be on that basis - correlate clinically. This includes the interstitial changes. 2. ASD aorta. Report was called to Dr. Meza at 1249 hours. [facility]
== END 2021-05-15 13:40 | disposition home or self-care (01) ==
LOC: FB.ED 11:07
DX: U07.1 COVID-19 (principal); D72.819 Decreased white blood cell count, unspecified
CPT/HCPCS: 36415; 71045; 80048; 85025; 96374; 96375; 99284; J1885; J2060; J2405; J7030

== ENCOUNTER 2021-05-19 11:53 | Emergency (ER) | payer OTHER ==
[2021-05-19] MEDS ORDERED: Sodium Chloride 0.9% 10 ML Syringe FLUSH PRN (12:17)
[2021-05-19] MEDS ORDERED: Ondansetron 4 MG/2 ML SDV IVPUSH ONE ×2 (12:17→13:34)
[2021-05-19] MEDS ORDERED: Sodium Chloride 0.9% 1,000 ML IV SCH (12:30)
[2021-05-19] MEDS ORDERED: Meclizine 25 MG Tab PO ONE (13:34)
--- NOTE | 2021-05-19 14:30 | EDM.PDOC ---
ED HPI GENERAL MEDICAL PROBLEM - General Chief Complaint: Gastrointestinal Problem Stated Complaint: COVID Time Seen by Provider: 05/19/21 12:00 Source of Information: Reports: Patient History Limitations: Reports: No Limitations - History of Present Illness INITIAL COMMENTS - FREE TEXT/NARRATIVE: Patient presented to the ED because of nausea, weakness and dizziness. She was diagnosed with Covid 10 days ago and is constantly having nausea. there is no fever, chills, diarrhea. - Related Data Allergies Allergy/AdvReac Type Severity Reaction Status Date / Time No Known Allergies Allergy Verified 09/05/18 22:20 Home Meds: Home Meds predniSONE [Prednisone] 2.5 mg PO DAILY 04/15/18 [History] Hydroxychloroquine [Plaquenil] 200 mg PO BID 07/24/20 [History] Naltrexone 4.5 mg PO BEDTIME 07/24/20 [History] Thyroid,Pork [B[place] Thyroid] 90 mg PO DAILY@0600 07/26/20 [History] predniSONE [Prednisone] 5 mg PO BEDTIME 07/26/20 [History] Amoxicillin/Clavulanate K [Augmentin 875-125 MG] 1 tab PO Q12H #14 tablet 07/29/20 [Rx] Acetaminophen/HYDROcodone [HYDROcodone-Acetaminophen 5-325 MG *] 1 tab PO Q4H PRN #15 each 05/10/21 [Rx] Ondansetron [Zofran ODT] 4 mg PO Q4H PRN #7 tab.dis 05/10/21 [Rx] Ketorolac [Toradol] 10 mg PO Q8H PRN #15 tab 05/15/21 [Rx] Ondansetron [Zofran ODT] 4 mg PO Q4H PRN #7 tab.dis 05/15/21 [Rx] traMADol [Ultram] 100 mg PO Q8H PRN #15 tab 05/15/21 [Rx] Meclizine [Antivert] 25 mg PO Q6H PRN #30 tab 05/19/21 [Rx] Ondansetron [Zofran ODT] 4 mg PO Q4H PRN #10 tab.dis 05/19/21 [Rx] Promethazine [Phenergan] 25 mg PO Q6H PRN #30 tab 05/19/21 [Rx] Past Medical History HEENT History: Reports: Impaired Vision Other HEENT History: THYROID DISEASE Cardiovascular History: Reports: None Respiratory History: Reports: None Gastrointestinal History: Reports: Bowel Obstruction, Other (See Below) Other Gastrointestinal History: hx intrasucception Genitourinary History: Reports: None 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 13 AB 4 Musculoskeletal History: Reports: Fibromyalgia, RA Neurological History: Reports: Migraines Psychiatric History: Reports: Anxiety, Depression Endocrine/Metabolic History: Reports: Hypothyroidism Hematologic History: Reports: Anemia Oncologic (Cancer) History: Reports: None Dermatologic History: Reports: None - Infectious Disease History Infectious Disease History: Reports: Chicken Pox, Mumps - Past Surgical History Head Surgeries/Procedures: Reports: None HEENT Surgical History: Reports: Adenoidectomy, Oral Surgery, Tonsillectomy Respiratory Surgical History: Reports: None GI Surgical History: Reports: Appendectomy, Other (See Below) Other GI Surgeries/Procedures: exp lap Female Surgical History: Reports: Section Other Female Surgeries/Procedures: CS x 1 Neurological Surgical History: Reports: None Musculoskeletal Surgical History: Reports: Other (See Below) Other Musculoskeletal Surgeries/Procedures:: hammer toe & bunion surgery bilat feet Dermatological Surgical History: Reports: Skin Graft Social & Family History - Family History Family Medical History: No Pertinent Family History - Tobacco Use Tobacco Use Status *Q: Never Tobacco User - Caffeine Use Caffeine Use: Reports: Tea Other Caffeine Use: tea occassionally - Recreational Drug Use Recreational Drug Use: No ED ROS GENERAL - Review of Systems Review Of Systems: See Below Constitutional: Reports: Weakness HEENT: Reports: No Symptoms Respiratory: Reports: No Symptoms GI/Abdominal: Reports: Nausea : Reports: No Symptoms Musculoskeletal: Reports: No Symptoms Skin: Reports: No Symptoms Neurological: Reports: No Symptoms Psychiatric: Reports: No Symptoms Hematologic/Lymphatic: Reports: No Symptoms ED EXAM, GENERAL - Physical Exam Exam: See Below Exam Limited By: No Limitations General Appearance: Alert, No Apparent Distress Eye Exam: Bilateral Eye: PERRL Ears: Normal External Exam, Normal Canal Nose: Normal Inspection, Normal Mucosa, No Blood Throat/Mouth: Normal Inspection, Normal Lips, Normal Teeth, Normal Gums, Normal Oropharynx, Normal Voice Head: Atraumatic, Normocephalic Neck: Normal Inspection, Supple, Non-Tender, Full Range of Motion Respiratory/Chest: No Respiratory Distress, Lungs Clear, Normal Breath Sounds, No Accessory Muscle Use Cardiovascular: Normal Peripheral Pulses, Regular Rate, Rhythm, No Edema, No Gallop, No JVD, No Murmur GI/Abdominal: Normal Bowel Sounds, Soft, Non-Tender, No Organomegaly, No Distention, No Abnormal Bruit Back Exam: Normal Inspection, Full Range of Motion Extremities: Normal Inspection, Normal Range of Motion, Non-Tender, No Pedal Edema, Normal Capillary Refill Neurological: Alert, Oriented, CN II-XII Intact, Normal Cognition Course - Vital Signs Text/Narrative:: Lab result was reviewed and discussed with patient NS 1 L bolus Zofran 4 mg IV x2 Meclizine 25 mg PO x1 Last Recorded V/S: Last Vital Signs Temp 36.5 C 05/19/21 11:54 Pulse 75 05/19/21 11:54 Resp 20 05/19/21 11:54 BP 150/74 H 05/19/21 11:54 Pulse Ox 99 05/19/21 11:54 - Orders/Labs/Meds Orders: Active Orders 24 hr Category Date Time Status Saline Lock Insert [OM.PC] Routine Oth 05/19/21 12:17 Ordered Labs: Laboratory Tests 05/19/21 05/19/21 Range/Units 12:27 12:27 WBC 2.4 L (3.0-10.3) x10-3/uL RBC 5.34 H (3.60-5.20) x10(6)uL Hgb 12.4 (11.4-15.5) g/dL Hct 38.9 (34.2-48.2) % MCV 72.8 L (76.7-100.5) fL MCH 23.3 L (23.9-33.9) pg MCHC 31.9 (31.9-34.8) g/dL RDW 17.5 H (12.3-16.5) % Plt Count 189 (151-488) x10(3)uL MPV 7.0 L (7.1-12.4) fL Neut % (Auto) 66.4 (30.8-76.2) % Lymph % (Auto) 20.3 (18.4-52.1) % [place] % (Auto) 12.9 (4.4-15.7) % Eos % (Auto) 0.2 L (0.6-8.1) % Baso % (Auto) 0.2 (0.2-1.5) % Neut # (Auto) 1.6 (1.5-6.3) x10-3/uL Lymph # (Auto) 0.5 L (1.0-4.4) x10-3/uL [place] # (Auto) 0.3 (0.3-1.0) x10-3/uL Eos # (Auto) 0.0 (0.0-0.8) x10-3/uL Baso # (Auto) 0.0 (0.0-0.1) x10-3/uL Sodium 142 (135-145) mmol/L Potassium 3.9 (3.5-5.3) mmol/L Chloride 105 (100-110) mmol/L Carbon Dioxide 26 (21-32) mmol/L BUN 12 (7-18) mg/dL Creatinine 0.6 (0.55-1.02) mg/dL Est Cr Clr Drug Dosing 81.45 mL/min Estimated GFR (MDRD) > 60 (>60) BUN/Creatinine Ratio 20.0 (9-20) Glucose 88 (80-116) mg/dL Calcium 8.5 L (8.6-10.2) mg/dL Meds: Medications Discontinued Medications Generic Name Dose Route Start Last Admin Trade Name Freq PRN Reason Stop Dose Admin Sodium Chloride 1,000 mls @ 999 mls/hr 05/19/21 12:30 05/19/21 12:31 Normal Saline IV 999 mls/hr ASDIRECTED SOBEIDA Administration Meclizine HCl 25 mg 05/19/21 13:34 05/19/21 13:42 Meclizine 25 Mg Tab PO 05/19/21 13:35 25 mg ONETIME ONE Administration Ondansetron HCl 4 mg 05/19/21 12:17 05/19/21 12:31 Ondansetron 4 Mg/2 Ml Sdv IVPUSH 05/19/21 12:18 4 mg ONETIME ONE Administration Ondansetron HCl 4 mg 05/19/21 13:34 05/19/21 13:42 Ondansetron 4 Mg/2 Ml Sdv IVPUSH 05/19/21 13:35 4 mg ONETIME ONE Administration Sodium Chloride 10 ml 05/19/21 12:17 05/19/21 12:25 Sodium Chloride 0.9% 10 Ml Syringe FLUSH 10 ml ASDIRECTED PRN Administration Keep Vein Open Departure - Departure Time of Disposition: 14:30 Disposition: Home, Self-Care 01 Condition: Good Clinical Impression: COVID-19 virus infection, Vertigo - Discharge Information Prescriptions: Meclizine [Antivert] 25 mg PO Q6H PRN #30 tab PRN Reason: vertigo Promethazine [Phenergan] 25 mg PO Q6H PRN #30 tab PRN Reason: Nausea Ondansetron [Zofran ODT] 4 mg PO Q4H PRN #10 tab.dis PRN Reason: Nausea Instructions: 10 Things You Can Do to Manage Your COVID-19 Symptoms at Home - [facility] (02/24/2021) Referrals: PCP,None [Primary Care Provider] - Forms: ED Department Discharge Additional Instructions: Please read discharge instructions on post covid symptoms Drink at least 2 liters of water daily Phenergan 25 mg every 6 hours as needed for nausea Zofran ODT 4 mg every 4 hours as needed for nausea Meclizine 25 mg every 6 hours as needed for vertigo Follow up as needed Sepsis Event Note (ED) - Evaluation Sepsis Screening Result: No Definite Risk - Focused Exam Vital Signs: Vital Signs Temp Pulse Resp BP Pulse Ox 05/19/21 11:54 36.5 C 75 20 150/74 H 99 - My Orders Last 24 Hours: My Active Orders 05/19/21 12:17 Saline Lock Insert [OM.PC] Routine - Assessment/Plan Last 24 Hours: My Active Orders 05/19/21 12:17 Saline Lock Insert [OM.PC] Routine
== END 2021-05-19 14:40 | disposition home or self-care (01) ==
LOC: FB.ED 11:53
DX: U07.1 COVID-19 (principal); R42 Dizziness and giddiness; M06.9 Rheumatoid arthritis, unspecified; E03.9 Hypothyroidism, unspecified; Z79.899 Other long term (current) drug therapy
CPT/HCPCS: 36415; 80048; 85025; 96374; 96376; 99283; A9270; J2405; J7030

== ENCOUNTER 2022-01-24 09:23 | Emergency (ER) | payer OTHER ==
[2022-01-24] MEDS ORDERED: Ketorolac 30 MG/ML SDV IM ONE (10:10)
== END 2022-01-24 11:53 | disposition home or self-care (01) ==
LOC: FB.ED 09:23
DX: S20.211A Contusion of right front wall of thorax, initial encounter (principal); E03.9 Hypothyroidism, unspecified; M06.9 Rheumatoid arthritis, unspecified; W01.198A Fall on same level from slipping, tripping and stumbling with subsequent striking against other object, initial encounter
CPT/HCPCS: 71101-RT; 96372; 99281; 99283-25; J1885

== ENCOUNTER 2023-07-21 21:32 | Emergency (ER) | payer OTHER ==
[2023-07-21] MEDS ORDERED: Sodium Chloride 0.9% 10 ML Syringe FLUSH PRN (22:41)
[2023-07-21] MEDS ORDERED: Sodium Chloride 0.9% 500 ML IV ONE (22:44)
[2023-07-21] MEDS ORDERED: Sodium Chloride 0.9% 1,000 ML IV SCH (22:45)
[2023-07-21] MEDS ORDERED: Hydrocortisone Sodium Succinate 100 MG/2 ML SDV IVPUSH ONE (22:45)
[2023-07-21 23:06] LABS: BASOPHILS PERCENT AUTO 0.2 % (0.2-1.5); HEMATOCRIT 44.6 % (34.2-48.2); HEMOGLOBIN 15.1 g/dL (11.4-15.5); LYMPHOCYTES ABSOLUTE AUTO 1.3 x10-3/uL (1.0-4.4); LYMPHOCYTES PERCENT AUTO 14.7 % (18.4-52.1); MEAN CORPUSCULAR HEMOGLOBIN 28.2 pg (23.9-33.9); MEAN CORPUSCULAR HGB CONC 33.9 g/dL (31.9-34.8); MEAN CORPUSCULAR VOLUME 83.1 fL (76.7-100.5); MEAN PLATELET VOLUME 7.9 fL (7.1-12.4); MONOCYTES ABSOLUTE AUTO 1.4 x10-3/uL (0.3-1.0); MONOCYTES PERCENT AUTO 15.2 % (4.4-15.7); NEUTROPHILS ABSOLUTE AUTO 6.3 x10-3/uL (1.5-6.3); NEUTROPHILS PERCENT AUTO 69.9 % (30.8-76.2); PLATELET COUNT,PLT 143 x10(3)uL (151-488); RED BLOOD CELL COUNT 5.36 x10(6)uL (3.60-5.20); RED CELL DISTRIBUTION WIDTH 14.5 % (12.3-16.5); WHITE BLOOD CELL COUNT,WBC 9.1 x10-3/uL (3.0-10.3)
[2023-07-21 23:10] LABS: BASE EXCESS VENOUS,POC -1 mmol/L (-2 - 3+); PCO2 VENOUS,POC 33 mmHg (41-51); PH VENOUS,POC 7.44 pH Units (7.32-7.43)
[2023-07-21 23:13] LABS: BLOOD UREA NITROGEN,BUN 17 mg/dL (7-18); BUN/CREATININE RATIO 15.5 (9-20); CARBON DIOXIDE,CO2 26 mmol/L (21-32); CHLORIDE,CL 100 mmol/L (100-110); CREATININE 1.1 mg/dL (0.55-1.02); ESTIMATED GFR 56 mL/min (>60); GLUCOSE RANDOM 88 mg/dL (80-116); POTASSIUM,K 2.9 mmol/L (3.5-5.3); SODIUM,NA 136 mmol/L (135-145)
[2023-07-21 23:19] LABS: A/G RATIO 1.1; ALANINE AMINOTRANSFERASE,ALT 53 U/L (12-36); ALBUMIN 3.9 g/dL (3.2-4.6); ALKALINE PHOSPHATASE 105 IU/L (56-112); ASPARTATE AMNIOTRANSFERASE,AST 36 IU/L (5-25); BILIRUBIN TOTAL 1.2 mg/dL (0.1-1.3); MAGNESIUM 1.9 mg/dL (1.8-2.5); PROTEIN TOTAL,TP 7.6 g/dL (6.0-8.0)
[2023-07-21 23:21] LABS: TROPONIN I 34.2 pg/mL (4.0-60.3)
[2023-07-21 23:33] LABS: C-REACTIVE PROTEIN 8.11 mg/dL (<0.50)
[2023-07-21 23:41] LABS: INFLUENZA A NAA NEGATIVE (NEGATIVE); INFLUENZA B NAA NEGATIVE (NEGATIVE); RESPIRATORY SYNCYTIAL VIR NAA NEGATIVE (NEGATIVE)
[2023-07-21 23:42] LABS: CORONAVIRUS COVID-19 NAA POSITIVE (NEGATIVE)
[2023-07-21 23:42] LABS: BILIRUBIN,URINE NEGATIVE (NEGATIVE); GLUCOSE,URINE NORMAL (NORMAL); KETONES,URINE 15 mg/dL (NEGATIVE); LEUKOCYTE ESTERASE,URINE NEGATIVE (NEGATIVE); NITRITE,URINE NEGATIVE (NEGATIVE); OCCULT BLOOD,URINE MODERATE (NEGATIVE); PROTEIN,URINE 30 mg/dL (NEGATIVE); UROBILINOGEN,URINE NORMAL (NEGATIVE)
[2023-07-21 23:44] LABS: APPEARANCE,URINE CLEAR (CLEAR); BACTERIA,URINE OCCASIONAL (NS); COLOR,URINE YELLOW (YELLOW); MUCUS,URINE FEW (NS); RBC,URINE 0-5 (0-5); SQUAMOUS EPITHELIAL CELLS,UR RARE (NS,R,O); WBC,URINE 0-5 (0-5)
[2023-07-22] MEDS ORDERED: Sodium Chloride 0.9% 500 ML IV ONE (00:02)
[2023-07-22] MEDS ORDERED: Potassium Chloride 10 MEQ in Premix Bag 1 BAG IV ONE (00:41)
[2023-07-22] MEDS ORDERED: cefTRIAXone 2 GM Vial IVPUSH ONE (03:23)
[2023-07-22] MEDS ORDERED: Potassium Chloride 20 MEQ Tab.ER PO ONE (03:55)
[2023-07-22 04:03] LABS: AMPHETAMINES SCREEN, URINE NEGATIVE (NEGATIVE); BARBITURATE SCREEN,URINE NEGATIVE (NEGATIVE); BENZODIAZEPINES SCREEN,URINE NEGATIVE (NEGATIVE); METHADONE SCREEN, URINE NEGATIVE (NEGATIVE); METHAMPHETAMINE SCREEN, URINE NEGATIVE (NEGATIVE); OXYCODONE SCREEN,URINE NEGATIVE (NEGATIVE); THC SCREEN,URINE NEGATIVE (NEGATIVE)
[2023-07-22 04:04] LABS: BUPRENORPHINE SCREEN,URINE NEGATIVE (NEGATIVE)
[2023-07-22] MEDS: Acetaminophen 500 MG Tab PO ONE ×2 (04:30→04:49)
== END 2023-07-22 05:10 ==
LOC: FB.ED 21:32
DX: U07.1 COVID-19 (principal); A41.9 Sepsis, unspecified organism; E87.6 Hypokalemia; E86.0 Dehydration; G93.41 Metabolic encephalopathy; E03.9 Hypothyroidism, unspecified; Z79.899 Other long term (current) drug therapy
CPT/HCPCS: 0241U; 36415; 51702; 70450; 71045; 72125; 80053; 80307; 81001; 83605; 83735; 84484; 85025; 86140; 87040; 87086; 93005; 96361; 96365; 96375; 99285; A9270; J0696; J1720; J3480; J3490; J7030; J7040